=== PATIENT | female | born 1945 | race Caucasian/White ===

== ENCOUNTER 2017-08-23 03:30 | Inpatient (IN) | payer MEDICARE, BC ==
[2017-08-23] VITALS (11 sets, daily range): BP systolic 80–224; BP diastolic 52–105
[~2017-08-23] VITALS: Ht 170.2 cm; Wt 112.5 kg
[~2017-08-23 03:30] MED LIST: AMILORIDE HCL-1 EACH PO; AMIODARONE HCL100 MG PO; AMOXICILLIN 50500 MG PO; AMOXIL 875 MG875 M1 PO; ANUSOL-HC30 GM RC; APRISO0.375 GM PO; ASPIR 8181 MG PO; ASPIRIN325 PO; ATORVASTATIN CA40 MG PO; AZULFIDINE500 MG PO; BACTRIM DS TAB1 EACH PO; CANASA1000 MG RECTAL; CARDIZEM CD120 MG PO; CELEXA 10 MG TA10 M1 PO; CELEXA 20 MG TA20 M1 PO; CELEXA10 MG PO; CELEXA20 MG PO; CIPRO500 MG PO; CIPROFLOXACIN500 M1 PO; Diltiazem PO; ENTOCORT EC 3 MG3 MG PO; Enalapril PO; FISH OIL 1,0001 EAC5 PO; FLAGYL500 MG PO; FLEXERIL PO; FLOMAX0.4 MG PO; HYDROCODON-ACE1 EA10; HYDROCODON-ACE1 EAC7 PO; HYDROCODONE-AP1 EAC6 PO; IMDUR 30 MG TAB30 MG PO; IRON 100 PLUS1 EACH PO; IRON325; IRON325 PO; KEFLEX500 MG PO; LEVSIN-SL0.125 MG SL; LEVSIN0.125 MG PO; LIALDA1.2 GM PO; LIPITOR 20 MG T20 M1 PO; LISINOPRIL10 MG PO; LISINOPRIL5 MG PO; LORTAB 10-3251 EACH PO; LORTAB 5-325 M1 EACH PO; MAG-OX 400 TAB400 M1 PO; MEDROLDOSEPACK PO; METAMUCIL PAC1 UDPKT PO; MOBIC15 MG PO; NEURONTIN 300300 M1 PO; NORCO 5-325 TA1 EACH PO; OMEPRAZOLE40 MG PO; OSCIMIN0.125 MG PO; PACERONE 200 M200 M1 PO; PERCOCET PO; PHENAZOPYRIDIN200 M2 PO; POTASSIUM20 PO; PRILOSEC; PRILOSEC 20 MG20 MG PO; PRILOSEC OTC20 MG PO; PRILOSEC2.5 MG; PROAIR HFA8.5 GM INH; PROTONIX40 M1 PO; PROTONIX40 M2 PO; PYRIDIUM200 M1 PO; Q-VAR PO; QVAR8.7 G1 INH; QVAR8.7 GM INH; SIMVASTATIN40 MG PO; SULFADIAZINE500 MG PO; SULFASALAZINE25 GM; SULFASALAZINE25 GM PO; ULTRAM 50MG TAB50 MG PO; VENTOLIN HFA 1818 GM INH; VENTOLIN HFA 1818 GM PO; XARELTO15 MG PO; XARELTO20 MG PO; ZOFRAN ODT4 MG PO; [UNRECOGNIZED DRUG - REMARK]
[2017-08-23] MEDS ORDERED: CARDIZEM CD120 MG PO (03:44)
[2017-08-23] MEDS ORDERED: ATORVASTATIN CA40 MG PO (03:45)
[2017-08-23] MEDS ORDERED: CELEXA20 MG PO (03:45)
[2017-08-23] MEDS ORDERED: IRON325 (03:46)
[2017-08-23] MEDS ORDERED: GABAPENTIN 100100 MG PO (03:46)
[2017-08-23] MEDS ORDERED: ELIQUIS5 MG PO (03:46)
[2017-08-23] MEDS ORDERED: APRISO0.375 GM PO (03:47)
[2017-08-23] MEDS ORDERED: [UNRECOGNIZED DRUG - OTHER] PO (03:49)
[2017-08-23 04:02] LABS: ABSOLUTE EOSINOPHILS 0.5 thou/uL (0.0-0.7); ABSOLUTE MONOCYTES 0.6 thou/uL (0.0-1.2); ABSOLUTE NEUTROPHILS 3.1 thou/uL (1.6-8.1); BASOPHILS 0.8 %; EOSINOPHILS 9.3 %; HEMATOCRIT 41.7 % (37.0-47.0); HEMOGLOBIN 13.2 gm/dL (12.0-15.0); LYMPHOCYTES 19.7 %; MCH 29.5 pg (26.0-34.0); MCHC 31.8 g/dL (28.0-37.0); MCV 92.9 fL (80.0-100.0); MONOCYTES 11.9 %; MPV 9.4 fl. (7.2-11.1); NUCLEATED RBCS 0 /100WBC; PLATELET COUNT* 216 thou/uL (150-400); POLYS 58.3 %; RBC 4.48 mil/uL (4.20-5.00); RDW-CV 16.3 % (10.5-14.5); WBC 5.2 thou/uL (4.0-11.0)
[2017-08-23 04:22] LABS: ANION GAP 9 mmol/L (7-16); BUN 12 mg/dL (7-18); CALCIUM 9.5 mg/dL (8.5-10.1); CHLORIDE 107 mmol/L (98-107); CO2 27 mmol/L (21-32); CREATININE 0.8 mg/dL (0.6-1.3); GLUCOSE 90 mg/dL (70-99); SODIUM 143 mmol/L (136-145)
[2017-08-23 04:36] LABS: ALBUMIN 3.4 g/dL (3.4-5.0); ALKALINE PHOSPHATASE 92 U/L (46-116); NT-PRO BRAIN NAT PEPTIDE 1437 pg/mL (<300); SGOT 12 U/L (15-37); SGPT 21 U/L (30-65); TOTAL BILIRUBIN 0.5 mg/dL (<0.1-1.0); TOTAL PROTEIN 7.3 g/dL (6.4-8.2); TROPONIN-I LEVEL <0.06 ng/mL (<0.06)
[2017-08-23 06:22] LABS: INR 1.2
--- NOTE | 2017-08-23 13:40 | NUR ---
I HAVE REVIEWED THE STUDENT'S CHARTING.
--- NOTE | 2017-08-23 15:10 | NUR ---
CM ASSESSMENT: Pt is A&O. Resides at home with her . Independent with ADLs. Pt has a walker and cane at home that she can use if needed. No hx of HH or SNF. Supportive family that is involved in POC. Goal is to return home once medically stable. Following.
--- NOTE | 2017-08-23 15:25 | 2DMMODE ---
[place] [address] 2 D/M-MODE ECHOCARDIOGRAM Name: JAYLENE TOVAR [facility] IN [facility]#: [id number] Admission: 08/23/17 Attend Phys: Yaniv Armando Discharge: Date of : 43 Date of Service: 08/23/17 1525 Report #: [id number] THIS REPORT FOR: //name// APPROVED REPORT Study performed: 08/23/2017 11:03:37 EXAM: Comprehensive 2D, Doppler, and color-flow Echocardiogram Patient Location: In-Patient Room #: [facility] Status: routine BSA: 2.21 HR: 95 bpm BP: 102/56 mmHg Rhythm: Atrial Fibrillation Other Information Study Quality: Good Indications Congestive Heart Failure Atrial Fibrillation 2D Dimensions LVEF(%): 70.58 (>50%) IVSd: 12.49 (7-11mm) LVOT Diam: 20.66 (18-24mm) LVDd: 35.03 mm PWd: 11.81 (7-11mm) Ascending Ao: 32.16 (22-36mm) LVDs: 21.34 (25-40mm) Aortic Root: 32.38 mm Phillip's LVEF: 70.58 % Volumes Left Atrial Volume (Systole) LA ESV Index: 47.40 mL/m2 Aortic Valve AoV Peak Pawel.: 2.25 m/s AO Peak Gr.: 20.20 mmHg LVOT Max P.74 mmHg AO Mean Gr.: 11.95 mmHg LVOT Mean P.67 mmHg LVOT Max V: 1.20 m/s AO V2 VTI: 45.26 cm LVOT Mean V: 0.74 m/s ANNEMARIE (VTI): 1.93 cm2 LVOT V1 VTI: 26.03 [place] [address] 2 D/M-MODE ECHOCARDIOGRAM Name: JAYLEEN TOVAR Room: [address] IN .R.#: [id number] Admission: 08/23/17 Attend Phys: Yaniv Armando Discharge: Date of : 43 Date of Service: 08/23/17 1525 Report #: [id number] MV Decel. Time: 187.06 ms MV PHT: 54.25 ms MVA (PHT): 4.06 cm2 TDI Medial E' Pawel.: 0.13 m/s Lateral E' Pawel.: 0.12 m/s Pulmonary Valve PV Peak Pawel.: 1.01 m/s PV Peak Gr.: 4.12 mmHg Tricuspid Valve TR Peak Gr.: 23.78 mmHg RVSP: 28.00 mmHg Left Ventricle The left ventricle is normal size. There is normal LV segmental wall motion. Mild concentric left ventricular hypertrophy. Left ventricular systolic function is normal. The left ventricular ejection fraction is within the normal range. LVEF is 65%. This study is not technically sufficient to allow evaluation of the LV diastolic function due to atrial fibrillation. Right Ventricle The right ventricle is normal size. The right ventricular systolic function is normal. Atria Left atrium is moderately dilated. The right atrium size is normal. Aortic Valve Mild aortic valve sclerosis. No aortic regurgitation is present. No hemodynamically significant valvular aortic stenosis. Mitral Valve There is mitral annular calcification. Trace mitral regurgitation. No evidence of mitral valve stenosis. Tricuspid Valve The tricuspid valve is normal in structure. Trace tricuspid regurgitation. The RVSP is ____28___ mmHg. Pulmonic Valve The pulmonary valve is normal in structure. There is no pulmonic [place] [address] 2 D/M-MODE ECHOCARDIOGRAM Name: JAYLENE TOVAR Room: [address] IN [facility]#: [id number] Admission: 08/23/17 Attend Phys: Yaniv Armando Discharge: Date of : 43 Date of Service: 08/23/17 1525 Report #: [id number] Great Vessels The aortic root is normal in size. IVC is normal in size and collapses with >50% inspiration Pericardium There is no pericardial effusion. <Conclusion> The left ventricle is normal size. Mild concentric left ventricular hypertrophy. Left ventricular systolic function is normal. The left ventricular ejection fraction is within the normal range. LVEF is 65%. This study is not technically sufficient to allow evaluation of the LV diastolic function due to atrial fibrillation. The right ventricle is normal size. Left atrium is moderately dilated. The right atrium size is normal. Mild aortic valve sclerosis. No aortic regurgitation is present. No hemodynamically significant valvular aortic stenosis. There is mitral annular calcification. Trace mitral regurgitation. No evidence of mitral valve stenosis. The tricuspid valve is normal in structure. Trace tricuspid regurgitation. The RVSP is ____28___ mmHg. IVC is normal in size and collapses with >50% inspiration There is no pericardial effusion. There is normal LV segmental wall motion. <ELECTRONICALLY SIGNED> By: Salvador Garces MD, FACC 08/23/17 1525 1525 1525 Salvador Garces MD, FACC /INF
--- NOTE | 2017-08-23 15:45 | NUR ---
ASSUMED PT CARE AT 0700 PT IS ALERT AND ORIENTED X 4 PT IS UP WITH SBA PT IS A FALL RISK PT HAS HISTORY OF FALLS BED ALARM IS ON, PT IS AFIB ON THE MONITOR PT IS ON CARDIZEM DRIP PT HAS CARDIAC CONSULT PT IS NPO PER CARDIOLOGY, CARDIOLOGY ORDERED PO CARDIZEM AND ORDERED TO STOP DRIP GAVE PO CARDIZEM AND STOPPED DRIP CARDIOLOGY CALLED AND PT CAN EAT LIGHT HEART HEALTHY LUNCH AND THEN NPO FOR STRESS TEST AROUND 1630 CALLED AND ORDERED LUNCH FOR PT PT IS NPO FOR STRESS TEST PT HAS NOT HAD CAFFIENE OVER 12 HOURS, PT HEART RATE IS CONTROLLED WITH PO CARDIZEM WILL CONTINUE TO MONITOR
--- NOTE | 2017-08-23 16:09 | EKG ---
[place] [address] ELECTROCARDIOGRAM REPORT Name: JAYLENE TOVAR Room: [address] ADM IN M.R.#: [id number] Admission: 08/23/17 Attend Phys: Michelle Elkins Discharge: Date of : 43 Report #: [id number] THIS REPORT FOR: //name// [facility] ED Test Date: 2017-08-23 Test Time: 04:21:03 Pat Name: JAYLENE LA Department: Room: [facility] Gender: F Legal Records Manager: [place] : 1945 Requested By: Aaliyah Metzger Order Number: [id number] MD: Salvador Garces Measurements Intervals [place] Rate: 119 P: GA: QRS: 56 QRSD: 98 T: 15 QT: 346 QTc: 487 Interpretive Statements Atrial fibrillation minor nonspecific st-t changes Baseline wander in lead(s) V1 Compared to ECG 03/27/2016 12:37:37 Early repolarization no longer present Electronically Signed On 08-23-2017 16:09:49 CDT by Salvador Garces [email or web address] <ELECTRONICALLY SIGNED> By: Salvador Garces MD, [facility] 08/23/17 1609 0421 0421 Salvador Garces MD, [facility] /EPI
[2017-08-24] VITALS: BP 167/67
[2017-08-24 04:00] VITALS: BP 147/94
--- NOTE | 2017-08-24 06:26 | NUR ---
A&O X4 CALM COOPERITVE. GIVEN TYNELOL FOR AVILA, RELIEF NOTED. USES O2 PRN. NO FLUIDS.PT IS STAND BY ASSIST. AFIB ON THE MONITOR. NPO SINCE 0000 STRESS TEST TODAY. VITALS WNL. SEE MAR. SEE CHARTING. FALL PRECAUTIONS IN PLACE. HOURLY ROUNDING FOR SAFETY.
[2017-08-24 08:17] VITALS: BP 144/97
--- NOTE | 2017-08-24 08:30 | NUR ---
RECEIVED REPORT. ASSUMED CARE OF PT AT 0730. VSS. CARDIAC MONTIORING IN PLACE AFIB. AM ASSESSMENT AND VITALS COMPLETED CHARTED. PT ALERT AND OREINTED X4. PT ON RA AMBULATING BACK TO CHAIR FROM BATHROOM UPON ASSESSMENT. PT IS SOA WITH EXERTION AND AUDIBLE WHEEZING PRESENT. O2 SAT CHECKED AT 90-93% ON RA. 2L ON STAND BY. IV SALINE LOCKED. PT NPO FOR SECOND PART OF STRESS TEST. PT INFORMED OF PLAN OF CARE. PT DENIES ANY COMPLAINTS OF PAIN OR DISCOMFORT THIS AM. PT COMMUNICATES UNDERSTANDING OF PLAN OF CARE. CALL LIGHT IS WITHIN REACH. WILL CONTINUE TO MONITOR FOR DURATION OF SHFIT.
[2017-08-24 12:01] VITALS: BP 118/92
--- NOTE | 2017-08-24 16:58 | NUR ---
VSS. CARDIAC MONITORING IN PLACE WITH NO CHANGES THIS SHIFT. PT PROGRESSING TOWARDS GOALS. PT REMAINS ON RA WITH 2L ON STAND BY. PT'S WHEEZING IMPROVED. PT COMPLETED STRESS TEST. PT RECEIVED TWO DOSES OF IV DIG THIS SHIFT. PT IS UP INDEPENDENTLY IN ROOM. PT HAS HAD NO COMPLAINTS OF PAIN OR DISCOMFORT. IV SALINE LOCKED. HOURLY ROUNDING. CALL LLIGHT IS WITHIN REACH. WILL CONTINUE TO MONITOR FOR DURAITON OF SHIFT.
--- NOTE | 2017-08-24 17:38 | CARDNUC ---
[place] [address] CARDIAC NUCLEAR IMAGING REPORT Name: JAYLENE TOVAR Room: [address] IN [facility]#: [id number] Admission: 08/23/17 Attend Phys: Yaniv Armando Discharge: Date of : 43 Date of Service: 08/24/17 1737 Report #: [id number] THIS REPORT FOR: //name// APPROVED REPORT Study performed: 08/23/2017 10:32:00 Exam: Nuclear Stress Test Indication: dyspnea, a fib Patient Location: In-Patient Room #: 228 Stress Tech: Yas Guerrero Stress Nurse: Maris Cisneros RN Ht: 5 ft 7 in Wt: 247 lbs BSA: 2.21 m2 BMI: 38.68 Medical History Medical History: a fib, hypertension, hyperlipidemia Medications: apixaban, atorvastatin, diltiazem Allergies: codiene, morphine Cardiac Risk Factors: age, hyperlipidemia, hypertension Previous Cardiac Procedures: none Exercise History: Sedentary Stress Test Details Stress Test: Pharmacologic stress testing performed using 0.4 mg of regadenoson per 5 mL given IV over 10 seconds. Reason for pharmacologic stress test: physical limitation. Reversal agent Aminophyline 50 mg, given intravenously for wheezing. HR Resting HR: 112 bpm Max Heart Rate (APMHR): 148 bpm Max HR Achieved: 110 bpm Target HR (85% APMHR): 125 bpm % of APMHR: 74 Recovery HR: 115 bpm BP Resting BP: 167/70 mmHg Max BP: 186/64 mmHg ECG Resting ECG: Atrial Fibrillation Stress ECG: [place]rial [place] [address] CARDIAC NUCLEAR IMAGING REPORT Name: JAYLENE TOVAR Room: [address]#: [id number] Admission: 08/23/17 Attend Phys: Yaniv Armando Discharge: Date of : 43 Date of Service: 08/24/17 1737 Report #: [id number] Change: None Recovery ECG: Atrial Fibrillation Recovery ST Change: None Clinical Reason for Termination: Completed protocol Stress Symptoms: none Exercise duration: 0 min sec Exercise capacity: 1 METs The patient had no significant symptoms with Lexiscan infusion. Nurse Comments wheezing much improved from yesterday. pt has slight expiratory whheze. pt placed on O2 4l/nc dring test. aminaphylline goven after test for wheeze Stress ECG Conclusion The baseline 12-lead electrocardiogram showed atrial fibrillation with a controlled ventricular response rate. EKGs obtained during and post Lexiscan infusion showed persistent atrial fibrillation with no significant ST or T wave changes when compared to baseline. NM EXAM: Myocardial Perfusion REST/STRESS Imaging Protocol: Rest Tc-99m/Stress Tc-99m 2 days Resting Data Rest SPECT myocardial perfusion imaging was performed in supine position 30 minutes following the intravenous injection of 41.0 mCi of Tc-99m Sestamibi. Time of rest injection: 1650 Date: 08/23/2017 Time of rest imagin Date: 08/23/2017 The images were gated to evaluate regional wall motion and calculate left ventricular ejection fraction. Administration Route: IV Administration Site: Right Arm Pharmacologic Stress Pharmacologic stress test was performed by injecting Regadenoson 0.4 mg IV push followed by the intravenous injection of 37.9 mCi of Tc-99m Sestamibi. Time of stress injection: 1530 Date: 08/24/2017 Time of stress imagin Date: 08/24/2017 Administration Route: IV Administration Site: Right Arm Heart Rate at time of stress injection: [address] [place] [address] CARDIAC NUCLEAR IMAGING REPORT Name: JAYLENE TOVAR Room: [address]#: [id number] Admission: 08/23/17 Attend Phys: Yaniv Armando Discharge: Date of : 43 Date of Service: 08/24/17 1737 Report #: [id number] Gated Stress SPECT was performed 40 minutes after stress injection. The images were gated to evaluate regional wall motion and calculate left ventricular ejection fraction. Prone imaging was performed. Study Quality Study: Good Artifact: No artifact Study Data At rest, the left ventricular ejection fraction was 68%.. Post stress, the left ventricular ejection was 73%.. TID = 1.00. Perfusion Normal left ventricular perfusion. Wall Motion Normal left ventricular wall motion. Nuclear Conclusion ECG Findings: negative for ischemia Clinical Findings: negative for ischemia Nuclear Findings: negative for ischemia Exercise Capacity: not assessed Left Ventricular Function: normal Risk Study: low Myocardial perfusion images show no defect to suggest ischemia or infarct. Left ventricular systolic function appears normal on gated studies. This is a low risk study. <Conclusion> The baseline 12-lead electrocardiogram showed atrial fibrillation with a controlled ventricular response rate. EKGs obtained during and post Lexiscan infusion showed persistent atrial fibrillation with no significant ST or T wave changes when compared to baseline. <ELECTRONICALLY SIGNED> By: Anup Garcia MD, FACC 08/24/17 1737 1737 173 Anup Garcia MD, FACC /INF
[2017-08-24 20:10] VITALS: BP 167/78
[2017-08-25 00:08] VITALS: BP 172/83
[2017-08-25 03:56] VITALS: BP 149/65
--- NOTE | 2017-08-25 05:52 | NUR ---
A&O X4 CALM COOPERITIVE. DENIES PAIN. APROX 2330 HR FLUTUATED FROM 100-150, ATTPEMTED TO PAGE CARDIO ANSWERING SERVICE, SERVICE DOWN. CARBONATOR CALLED DR NAVARRO LEFT MESSAGE AND TEXT. ANSWERING SERVICE WAS CONTACTED AT APROX 0300 AND MESSAGE WAS SENT TO MICHELLE CARDIO. BY THE TIME A PAGE WAS ABLE TO BE SENT PT HR WAS 90-110 AND STAYED 90-120 AND WAS ASYMPTOMATIC. PT REMAINED ASYSMPTOMATIC THROUGH OUT THE NIGHT. REPORTED HEARTBURN AND HEADACHE MEDICATION WAS GIVEN WITH RELIEF. PT WAS TAKEN OFF FALL PRECAUTIONS, PT WAS STAND BY, PT HAS REMAINED BALANCE ON FEET DURING OBSERVATION FOR STAND BY ASSIST. BP O2 PULSE WNL. SEE MAR. SEE CHARTING. HOURLY ROUNDING FOR SAFETY.
[2017-08-25 08:00] VITALS: BP 127/83
--- NOTE | 2017-08-25 10:54 | NUR ---
CONTINUE TO FOLLOW, PT DENIES ANY DC NEEDS. SPOUSE AT BEDSIDE. PT HOPES TO GO HOME
--- NOTE | 2017-08-25 12:50 | NUR ---
ASSUMED PT CARE AT 0700 PT IS ALERT AND ORIENTED X 4 PT IS UP SBA PT IS A FALL RISK CHAIR ALARM IS ON, PT DENIES PAIN OR SOA PT IS ON 2L/NC, PT IS AFIB ON THE MONITOR BLOOD PRESSURE AND HEART RATE IS STABLE, PT IS PLEASANT AND COOPERATIVE, PT MAY DISCHARGE TODAY AWAITING PHYSICIAN WILL CONTINUE TO MONITOR
[2017-08-25 12:52] VITALS: BP 131/76
[2017-08-25 16:00] VITALS: BP 140/68
[2017-08-25 20:00] VITALS: BP 133/78
[2017-08-26] VITALS: BP 143/63
[2017-08-26 04:00] VITALS: BP 138/69
--- NOTE | 2017-08-26 05:22 | NUR ---
PT CARE ASSUMED AFTER REPORT. ASSESSMENT COMPLETE. AFIB ON MONITOR. PRN TYLENOL FOR HEADACHE. UP AD MECHE WITH STEADY GAIT. CALL LIGHT IN REACH. BED IN LOWEST POSITION. PROGRESSING TOWARDS GOALS.
[2017-08-26 05:27] LABS: HEMATOCRIT 39.2 % (37.0-47.0); HEMOGLOBIN 12.5 gm/dL (12.0-15.0); MCH 29.4 pg (26.0-34.0); MCHC 31.9 g/dL (28.0-37.0); MCV 92.1 fL (80.0-100.0); MPV 10.1 fl. (7.2-11.1); RBC 4.26 mil/uL (4.20-5.00); RDW-CV 16.1 % (10.5-14.5); WBC 11.9 thou/uL (4.0-11.0)
[2017-08-26 05:43] LABS: ALBUMIN 3.2 g/dL (3.4-5.0); CALCIUM 9.7 mg/dL (8.5-10.1); CREATININE 0.7 mg/dL (0.6-1.3); MAGNESIUM 2.1 mg/dL (1.8-2.4); POTASSIUM 4.1 mmol/L (3.5-5.1); TOTAL BILIRUBIN 0.2 mg/dL (<0.1-1.0); TOTAL PROTEIN 6.6 g/dL (6.4-8.2)
[2017-08-26 08:00] VITALS: BP 154/79
[2017-08-26] MEDS ORDERED: PREDNISONE 10 M10 MG PO (09:11)
[2017-08-26] MEDS ORDERED: DUONEB 2.5-0.5 M3 ML INH (09:11)
[2017-08-26] MEDS ORDERED: LANOXIN 0.25M0.25 M1 PO (09:11)
[2017-08-26] MEDS ORDERED: LEVAQUIN 500 M500 M1 PO (09:11)
[2017-08-26] MEDS ORDERED: CARDIZEM CD240 MG PO (09:11)
--- NOTE | 2017-08-26 09:46 | NUR ---
ASSUMED PT CARE AT 0700 PT IS ALERT AND ORIENTED X 4 PT DENIES PAIN OR SOA PT IS ON 2L/NC WHICH PT HAS BEEN ABLE TO REMOVE AND SATS ARE STABLE PHYSICIAN SAW PT AND ORDERED RESPIRATORY TO WALK PT AND THEN PT CAN DISCHARGE TO HOME, PT IS AFIB ON THE MONITOR PT IS A FALL RISK PT IS STABLE WHEN AMBULATING CHAIR ALARM IS ON PT CALLS OUT APPROPIATELY, WILL CONTINUE TO MONITOR
[2017-08-26 11:42] VITALS: BP 154/79
== END 2017-08-26 12:17 | disposition home or self-care (01) | DRG 291 ==
LOC: M.ERS 03:30 → M.TBA-ER 05:52 → M.2W 05:52
PROVIDERS: Emergency Medicine; Family Medicine; ADMIT Internal Medicine
PROC: B24BZZ4 Ultrasonography of Heart with Aorta, Transesophageal (ICD-10-PCS; principal; 2017-08-23)
PROC: 0HQ0XZZ Repair Scalp Skin, External Approach (ICD-10-PCS; principal; 2017-08-23)
DX: I50.33 Acute on chronic diastolic (congestive) heart failure (principal); J96.91 Respiratory failure, unspecified with hypoxia; S01.01XA Laceration without foreign body of scalp, initial encounter; I10 Essential (primary) hypertension; I48.0 Paroxysmal atrial fibrillation; E78.5 Hyperlipidemia, unspecified; Z96.642 Presence of left artificial hip joint; K52.9 Noninfective gastroenteritis and colitis, unspecified; G47.33 Obstructive sleep apnea (adult) (pediatric); J44.9 Chronic obstructive pulmonary disease, unspecified; M19.90 Unspecified osteoarthritis, unspecified site; W06.XXXA Fall from bed, initial encounter; Y93.89 Activity, other specified; Y92.89 Other specified places as the place of occurrence of the external cause; Y99.8 Other external cause status; I25.2 Old myocardial infarction; Z90.49 Acquired absence of other specified parts of digestive tract; Z87.442 Personal history of urinary calculi; Z86.718 Personal history of other venous thrombosis and embolism; Z79.01 Long term (current) use of anticoagulants; Z79.82 Long term (current) use of aspirin; Z79.899 Other long term (current) drug therapy; Z88.5 Allergy status to narcotic agent; Z88.8 Allergy status to other drugs, medicaments and biological substances; Z82.49 Family history of ischemic heart disease and other diseases of the circulatory system

== ENCOUNTER → 2018-08-22 | Day surgery (SDC) | payer MEDICARE, BC ==
[~2018-08-22] MED LIST changes: +BENTYL 10 MG CA10 M1 PO; +CARDIZEM CD240 MG PO; +DUONEB 2.5-0.5 M3 ML INH; +ELIQUIS5 MG PO; +GABAPENTIN 100100 MG PO; +LANOXIN 0.25M0.25 M1 PO; +LEVAQUIN 500 M500 M1 PO; +POTASSIUM CITRA5 MEQ PO; +PREDNISONE 10 M10 MG PO; +[UNRECOGNIZED DRUG - OTHER] PO
--- NOTE | ~2018-08-22 | PROC ---
[address] [address] PROCEDURE REPORT Name: JAYLENE TOVAR Room: [facility].#: [id number] Admission: 08/22/18 Attend Phys: Tatyana Dean MD Discharge: Date of : 43 Report #: [id number] THIS REPORT FOR: //name// For GI report, please see the Provation report in Perceptive 7 content. By: 0639Medical Records Staff DAVID /BRAD
[2018-08-22 09:48] LABS: HEMATOCRIT 36.1 % (37.0-47.0); HEMOGLOBIN 11.4 gm/dL (12.0-15.0); MCH 26.1 pg (26.0-34.0); MCHC 31.7 g/dL (28.0-37.0); MCV 82.2 fL (80.0-100.0); MPV 8.5 fl. (7.2-11.1); RBC 4.39 mil/uL (4.20-5.00); WBC 10.8 thou/uL (4.0-11.0)
[2018-08-22 10:13] LABS: ALBUMIN 2.7 g/dL (3.4-5.0); CALCIUM 8.9 mg/dL (8.5-10.1); CREATININE 0.9 mg/dL (0.6-1.3); TOTAL BILIRUBIN 0.5 mg/dL (<0.1-1.0)
[2018-08-22 10:22] LABS: POTASSIUM 2.8 mmol/L (3.5-5.1)
--- NOTE | 2018-08-22 14:41 | EKG ---
[place] [address] ELECTROCARDIOGRAM REPORT Name: JAYLENE TOVAR Room: [facility]#: [id number] Admission: 08/22/18 Attend Phys: Tatyana Dean MD Discharge: Date of : 43 Report #: [id number] THIS REPORT FOR: //name// [facility] Test Date: 2018-08-22 Test Time: 09:31:58 Pat Name: JAYLENE TOVAR Department: Room: Gender: F Cross Roller: : 1945 Requested By: Tatyana Dean Order Number: [id number] Hilary MD: Salvador Garces Measurements Intervals [place] Rate: 125 P: MD: QRS: 33 QRSD: 87 T: -17 QT: 333 QTc: 481 Interpretive Statements Atrial fibrillation Low voltage, extremity leads Minimal ST depression, inferior leads Compared to ECG 08/23/2017 04:21:03 Low QRS voltage now present ST (T wave) deviation still present Electronically Signed On 08-22-2018 14:41:08 CDT by Salvador Garces [email or web address] <ELECTRONICALLY SIGNED> By: Salvador Garces MD, [facility] 08/22/18 1441 0931 0931 Salvador Garces MD, [facility] /EPI
--- NOTE | 2018-08-23 17:06 | PATH ---
[facility] [address] [place] [address] PATHOLOGY RPT PROCEDURE Name: GARRICKHERBERTCRISTINJAYLENE J [id number] Admission: 08/22/18 Date of : 43 Discharge: Report #: [id number] Path Case #: [id number] [facility] Accession Number: [id number] . 01 Material submitted: . PART A: colon - RANDOM COLON BX R/O COLITIS PART B: rectum - RECTAL BX R/O PROCTITIS . 01 Clinical history: . Rule out colitis, rule out proctitis, Hx colon polyps, ulcerative colitis, diarrhea, hematochezia . 02 Diagnosis: A. Random colon biopsies: - Compatible with ulcerative colitis with moderate activity, negative for granulomas, viral inclusions and dysplasia. See comment. . B. Rectal biopsy: - Compatible with ulcerative colitis with severe activity, negative for granulomas, viral inclusions and dysplasia. See comment. LBQ/08/23/2018 . 02 Comment: All of the random colon biopsy fragments as well as rectal biopsy fragments show similar findings with prominent chronic colitis evidenced by crypt distortion, basal lymphoplasmacytosis and mucin depletion and there is also easily identified crypt abscesses and cryptitis and, in the rectal biopsy (B), with evidence of skip ulceration also present. (JAMIN/db; 08/23/2018) . 02 Electronically signed: . Vick Ruvalcaba MD, Pathologist NPI- [id number] . 01 Gross description: . A. Received in formalin labeled "Jaylene Lindquist, random colon BX," are 6 segments of fleming soft tissue measuring 1.3 x 0.9 x 0.2 cm in aggregate dimensions and ranging from 0.3 to 0.6 cm in maximum dimension. The specimen is submitted entirely in cassette A1. . B. Received in formalin labeled "Jaylene Lindquist, rectal BX," are 2 segments of fleming soft tissue measuring 0.9 x 0.1 x 0.1 cm in aggregate dimensions and ranging from 0.4 to 0.5 cm in maximum dimension. The specimen is submitted entirely in cassette B1. (TSD; 08/22/2018) TOB/TOB . 02 Pathologist provided ICD-10: [place] [address] PATHOLOGY RPT PROCEDURE Name: SHIRLEY LINDQUISTFER Abdi Room: [facility]#: [id number] Admission: 08/22/18 Date of : 43 Discharge: Report #: [id number] Path Case #: [id number] K51.90 . 02 CPT . [id number], [id number] Specimen Comment: A courtesy copy of this report has been sent to Specimen Comment: [phone], . Specimen Comment: Report sent to / DR MCARTHUR Performed at: [address] [facility] [address], [place], [place] [id number] MD Roland Bazan MD Phone: [phone] Performed at: 02 [facility] [address]ina [address], [place], [place] [id number] MD Vick Ruvalcaba MD Phone: [phone]
== END | disposition home or self-care (01) ==
LOC: M.SUR 06:27
PROVIDERS: Internal Medicine Gastroenterology
DX: K51.90 Ulcerative colitis, unspecified, without complications (principal); K57.30 Diverticulosis of large intestine without perforation or abscess without bleeding; K64.8 Other hemorrhoids; K64.4 Residual hemorrhoidal skin tags; K62.89 Other specified diseases of anus and rectum; K21.9 Gastro-esophageal reflux disease without esophagitis; I25.10 Atherosclerotic heart disease of native coronary artery without angina pectoris; I25.2 Old myocardial infarction; E78.5 Hyperlipidemia, unspecified; J44.9 Chronic obstructive pulmonary disease, unspecified; I48.91 Unspecified atrial fibrillation; E66.09 Other obesity due to excess calories; Z79.01 Long term (current) use of anticoagulants; Z88.8 Allergy status to other drugs, medicaments and biological substances; Z79.899 Other long term (current) drug therapy; Z86.010 Personal history of colon polyps; Z98.890 Other specified postprocedural states; Z87.442 Personal history of urinary calculi

== ENCOUNTER 2018-11-15 06:52 | Inpatient (IN) | payer MEDICARE, BC ==
[~2018-11-15] VITALS: Ht 152.4 cm; Wt 106.6 kg
[2018-11-15 06:55] VITALS: BP 161/119
[2018-11-15 07:22] LABS: BE -0.4 mmol/L (-2 to +3); PCO2 36.5 mmHg (35.0-45.0); pH 7.428 (7.340-7.450)
[2018-11-15 07:24] LABS: PO2 48.6 mmHg (75.0-100.0)
[2018-11-15 07:33] LABS: ABSOLUTE LYMPHOCYTES 0.8 thou/uL (0.8-5.3); ABSOLUTE MONOCYTES 0.4 thou/uL (0.0-1.2); ABSOLUTE NEUTROPHILS 5.7 thou/uL (1.6-8.1); BASOPHILS 0.4 %; EOSINOPHILS 0.3 %; HEMATOCRIT 39.4 % (37.0-47.0); HEMOGLOBIN 12.2 gm/dL (12.0-15.0); MCH 26.3 pg (26.0-34.0); MCHC 31.1 g/dL (28.0-37.0); MCV 84.6 fL (80.0-100.0); MONOCYTES 5.5 %; MPV 8.5 fl. (7.2-11.1); NUCLEATED RBCS 0 /100WBC; PLATELET COUNT* 242 thou/uL (150-400); POLYS 82.8 %; RBC 4.66 mil/uL (4.20-5.00); RDW-CV 21.4 % (10.5-14.5); WBC 6.9 thou/uL (4.0-11.0)
[2018-11-15] MEDS ORDERED: IRON325 PO (07:35)
[2018-11-15] MEDS ORDERED: SINGULAIR 10 MG10 M1 PO (07:35)
[2018-11-15] MEDS ORDERED: VENTOLIN HFA 1818 GM INH (07:35)
[2018-11-15] MEDS ORDERED: PREDNISONE 20 M20 MG PO (07:35)
[2018-11-15 07:42] LABS: ANION GAP 9 mmol/L (7-16); BUN 14 mg/dL (7-18); CALCIUM 9.1 mg/dL (8.5-10.1); CHLORIDE 111 mmol/L (98-107); CO2 28 mmol/L (21-32); CREATININE 0.8 mg/dL (0.6-1.3); GLUCOSE 124 mg/dL (70-99); POTASSIUM 3.4 mmol/L (3.5-5.1); SODIUM 148 mmol/L (136-145)
[2018-11-15 07:45] LABS: APTT 26.1 Seconds (25.0-31.3); INR 1.1; PROTIME 11.1 Seconds (9.20-11.50)
[2018-11-15 07:53] LABS: ALKALINE PHOSPHATASE 54 U/L (46-116); NT-PRO BRAIN NAT PEPTIDE 2758 pg/mL (<300); SGOT 10 U/L (15-37); SGPT 27 U/L (30-65); TOTAL BILIRUBIN 0.4 mg/dL (<0.1-1.0); TOTAL PROTEIN 6.5 g/dL (6.4-8.2); TROPONIN-I LEVEL <0.06 ng/mL (<0.06)
[2018-11-15 08:00] VITALS: BP 121/87
[2018-11-15 08:44] VITALS: BP 149/92
[2018-11-15 08:51] LABS: PLATELET ESTIMATE ADEQUATE
[2018-11-15 08:52] LABS: ANISOCYTOSIS 1+
[2018-11-15 08:53] LABS: POIKILOCYTOSIS 1+
[2018-11-15 08:54] LABS: OVALOCYTES 1+
--- NOTE | 2018-11-15 16:18 | 2DMMODE ---
[place] [address] 2 D/M-MODE ECHOCARDIOGRAM Name: JAYLENE TOVAR Room: [address] IN [facility]#: [id number] Admission: 11/15/18 Attend Phys: Jarrell Hobson, Discharge: Date of : 43 Date of Service: 11/15/18 1618 Report #: [id number] THIS REPORT FOR: //name// APPROVED REPORT Study performed: 11/15/2018 10:47:51 EXAM: Comprehensive 2D, Doppler, and color-flow Echocardiogram Patient Location: In-Patient Room #: 2193 Status: routine BSA: 2.12 HR: 87 bpm BP: 149/92 mmHg Rhythm: Atrial Fibrillation Other Information Study Quality: Good Indications Atrial Fibrillation Dyspnea 2D Dimensions IVSd: 16.06 (7-11mm) LVOT Diam: 22.78 (18-24mm) LVDd: 40.86 mm PWd: 12.02 (7-11mm) Ascending Ao: 32.36 (22-36mm) LVDs: 24.45 (25-40mm) Aortic Root: 27.89 mm Volumes Left Atrial Volume (Systole) LA ESV Index: 39.00 mL/m2 Aortic Valve AoV Peak Pawel.: 2.26 m/s AO Peak Gr.: 20.45 mmHg LVOT Max P.10 mmHg AO Mean Gr.: 11.04 mmHg LVOT Mean P.70 mmHg LVOT Max V: 0.88 m/s AO V2 VTI: 42.78 cm LVOT Mean V: 0.60 m/s ANNEMARIE (VTI): 1.53 cm2 LVOT V1 VTI: 16.06 cm Mitral Valve MV Decel. Time: 133.59 ms MV PHT: 38.74 [place] [address] 2 D/M-MODE ECHOCARDIOGRAM Name: JAYLENE TOVAR Room: [address] IN .R.#: [id number] Admission: 11/15/18 Attend Phys: Jarrell Hobson, Discharge: Date of : 43 Date of Service: 11/15/18 1618 Report #: [id number] MVA (PHT): 5.68 cm2 TDI Medial E' Pawel.: 0.10 m/s Lateral E' Pawel.: 0.15 m/s Pulmonary Valve PV Peak Pawel.: 1.05 m/s PV Peak Gr.: 4.37 mmHg Tricuspid Valve RAP Estimate: 5.00 mmHg TR Peak Gr.: 26.48 mmHg RVSP: 31.00 mmHg PA Pressure: 31.00 mmHg Left Ventricle The left ventricle is normal size. There is normal LV segmental wall motion. Mild to moderate concentric left ventricular hypertrophy. Left ventricular systolic function is normal. LVEF is 60-65%. This study is not technically sufficient to allow evaluation of the LV diastolic function due to atrial fibrillation. Right Ventricle Right ventricle is mildly dilated. The right ventricular systolic function is normal. Atria Left atrium is moderately dilated. Right atrium is mildly dilated. Aortic Valve Aortic valve leaflets are mildly thickened. No aortic regurgitation is present. Mild aortic stenosis. Mitral Valve There is mitral annular calcification. Trace mitral regurgitation. No evidence of mitral valve stenosis. Tricuspid Valve The tricuspid valve is normal in structure. Trace tricuspid regurgitation. Pulmonic Valve The pulmonary valve is normal in structure. Trace pulmonic regurgitation[place] [address] 2 D/M-MODE ECHOCARDIOGRAM Name: JAYLENE TOVAR Room: [address] IN [facility].#: [id number] Admission: 11/15/18 Attend Phys: Jarrell Hobson, Discharge: Date of : 43 Date of Service: 11/15/18 1618 Report #: [id number] The aortic root is normal in size. IVC is normal in size and collapses >50% with inspiration. Pericardium There is no pericardial effusion. <Conclusion> The left ventricle is normal size. Mild to moderate concentric left ventricular hypertrophy. Left ventricular systolic function is normal. LVEF is 60-65%. Right ventricle is mildly dilated. Left atrium is moderately dilated. Right atrium is mildly dilated. Aortic valve leaflets are mildly thickened. Mild aortic stenosis. Trace mitral regurgitation. IVC is normal in size and collapses >50% with inspiration. <ELECTRONICALLY SIGNED> By: Anup Garcia MD, FACC 11/15/18 1618 1618 1618 Anup Garcia MD, FACC /INF
[2018-11-15 16:26] VITALS: BP 112/54
--- NOTE | 2018-11-15 17:02 | EKG ---
[place] [address] ELECTROCARDIOGRAM REPORT Name: JAYLENE TOVAR Room: [address] ADM IN M.R.#: [id number] Admission: 11/15/18 Attend Phys: Jarrell Hobson MD Discharge: Date of : 43 Report #: [id number] THIS REPORT FOR: //name// [facility] ED Test Date: 2018-11-15 Test Time: 06:56:58 Pat Name: JAYLENE LA Department: Room: [facility] Gender: F Restorative Coordinator: [place] : 1945 Requested By: Radha Jones Order Number: [id number] MD: Anup Garcia Measurements Intervals [place] Rate: 152 P: [place]: QRS: 172 QRSD: 118 T: 111 QT: 332 QTc: 528 Interpretive Statements Atrial fibrillation with rapid V-rate Anterior infarct, old Nonspecific T abnormalities, lateral leads Compared to ECG 08/22/2018 09:31:58 Myocardial infarct finding now present T-wave abnormality now present ST (T wave) deviation no longer present Electronically Signed On 11-15-2018 17:02:31 CDT by Anup Garcia [email or web address] <ELECTRONICALLY SIGNED> By: Anup Garcia MD, FACC 11/15/18 1702 0656 0656 Anup Garcia MD, FACC /EPI
[2018-11-15 20:00] VITALS: BP 144/73
[2018-11-16] VITALS: BP 141/67
[2018-11-16 04:00] VITALS: BP 139/95
[2018-11-16 04:43] LABS: CALCIUM 9.7 mg/dL (8.5-10.1); CREATININE 0.9 mg/dL (0.6-1.3); MAGNESIUM 1.8 mg/dL (1.8-2.4); POTASSIUM 3.2 mmol/L (3.5-5.1)
[2018-11-16 08:00] VITALS: BP 153/75
[2018-11-16 11:43] VITALS: BP 109/65
[2018-11-16 15:25] VITALS: BP 117/69
[2018-11-16 20:00] VITALS: BP 136/80
[2018-11-17] VITALS: BP 150/110
[2018-11-17 04:00] VITALS: BP 154/80
[2018-11-17 04:54] LABS: CALCIUM 9.4 mg/dL (8.5-10.1); CREATININE 0.9 mg/dL (0.6-1.3); MAGNESIUM 1.8 mg/dL (1.8-2.4); POTASSIUM 3.5 mmol/L (3.5-5.1)
[2018-11-17 08:00] VITALS: BP 155/86
[2018-11-17 11:30] VITALS: BP 140/77
--- NOTE | 2018-11-17 13:06 | CON ---
[address] [address] CONSULTATION Name: GARRICKHERBERTJAYLENE Abdi Room: [address] IN .R.#: [id number] Admission: 11/15/18 Attend Phys: Jarrell Hobson MD Discharge: Date of : 43 Report #: [id number] THIS REPORT FOR: //name// CC: Sergio Zepeda MD DATE OF SERVICE: 11/15/2018 INDICATION: Persistent atrial fibrillation, now with rapid ventricular response rate. HISTORY OF PRESENT ILLNESS: The patient is a 72-year-old white female who was admitted to the Emergency Room with chest tightness and discomfort. She was noted to be in atrial fibrillation with a rapid ventricular response rate. It sounds as if she has had rather persistent atrial fibrillation lately. There were plans for cardioversion in the near future. She has obstructive sleep apnea and hypertension as well. There is some question of COPD. She does use inhalers. She reports a history of heart attack 11 years ago. At that time, catheterization showed no significant coronary artery stenosis. On admission, she was noted to be hypoxic and placed on supplemental oxygen. At the time of my interview, she is feeling better. Her heart rate has improved. She remains in atrial fibrillation. She has been chronically anticoagulated with Eliquis and having no bleeding problems. PAST MEDICAL HISTORY: 1. Persistent atrial fibrillation. 2. Cardiac catheterization on 10/07/2003 with no intervention. 3. Hypertension. 4. Hyperlipidemia. 5. Chronic left hip pain and bursitis. 6. Necrotizing fasciitis of the left thigh. 7. Right wrist fracture. 8. DJD. 9. Cholecystectomy. 10. Nephrolithiasis. 11. Right shoulder replacement. 12. Neck surgery in 2015. 13. History of diverticulitis and colitis. 14. History of DVT, remotely. HOME MEDICATIONS: Albuterol two puffs q.6 hours p.r.n., Eliquis 5 mg b.i.d., atorvastatin 40 mg daily, Celexa 40 mg daily, Bentyl 10 mg q.i.d., diltiazem 240 mg daily, iron sulfate 325 mg daily, gabapentin 100 mg b.i.d., DuoNeb inhaler q.4 hours p.r.n., mesalamine 0.375 grams p.o. b.i.d., Singulair 10 [place] [address] CONSULTATION Name: JAYLENE TOVAR Room: [address]#: [id number] Admission: 11/15/18 Attend Phys: Jarrell Hobson MD Discharge: Date of : 43 Report #: [id number] bedtime, omeprazole 40 mg daily, prednisone 20 mg daily, flecainide 50 mg b.i.d. ALLERGIES: VERSED AND CODEINE. FAMILY HISTORY: Noncontributory. SOCIAL HISTORY: The patient quit smoking remotely. She drinks alcohol rarely. REVIEW OF SYSTEMS: A 14-point review of systems is positive for chest tightness, dyspnea, orthopnea, history of anemia, history of DVT, SEASONAL AND MEDICAL ALLERGIES, depression, arthritis and she wears reading glasses. Otherwise, 14-point review of systems unremarkable. PHYSICAL EXAMINATION: VITAL SIGNS: Blood pressure 149/92, pulse is 94 and irregular. GENERAL: This is a morbidly obese, pleasant white female in no distress. Mood and affect appropriate. HEENT: Extraocular muscles intact. Mucous membranes are moist. NECK: Thick. No obvious JVD. CHEST: Reveals diminished breath sounds throughout without wheezes or rales. CARDIOVASCULAR: Reveals an irregularly irregular rhythm. Rate is adequately controlled. I do not appreciate gallop or murmur. ABDOMEN: Reveals a protuberant abdomen. Bowel sounds present. EXTREMITIES: Shows no significant edema. SKIN: Warm and dry. LABORATORY DATA: A 12-lead EKG shows atrial fibrillation with a rapid ventricular response rate. There is a nonspecific intraventricular conduction delay. I do not appreciate acute ST segment abnormalities. Labs are reviewed. Sodium 148, potassium 3.4, chloride 111, bicarbonate 28, BUN 14, creatinine 0.8, serum glucose 124. AST 10, amylase 40, lipase 78, total bilirubin 0.4, direct bilirubin 0.3. Calcium 9.1, phosphorus 3.0, magnesium 2.1. Uric acid 5.4. Alkaline phosphatase 54. ALT 27, total protein 6.5, albumin 3.0. EGFR 70. Lactic acid 1.4. Troponins less than 0.06 on two separate occasions. NT-proBNP 2758. Coags within normal limits. White blood cell count 6.9; hemoglobin 12.2; platelet count 242,000. Chest x-ray showed cardiomegaly and vascular congestion. IMPRESSION AND RECOMMENDATIONS: 1. Persistent atrial fibrillation. We will continue Eliquis 5 mg twice daily. We will continue flecainide. Consider cardioversion pending echocardiogram results. Echocardiogram ordered. Continue diltiazem drip for rate control at this time. 2. Heart failure, likely acute on chronic diastolic heart failure. The patient [address] [place] [address] CONSULTATION Name: JAYLENE TOVAR Room: [address] IN [facility]#: [id number] Admission: 11/15/18 Attend Phys: Jarrell Hobson MD Discharge: Date of : 43 Report #: [id number] has received a single bolus of IV Lasix with resolution of symptoms. We will follow clinically at this point in time. 3. Hypercoagulable state. The patient is chronically anticoagulated. 4. Chest discomfort, likely related to the atrial fibrillation with rapid ventricular response rate. The patient has ruled out thus far by serial enzymes. 5. Hypertension. We will make adjustments to medications as necessary. Presently, she appears relatively stable. 6. Dyslipidemia. Continue atorvastatin at current dose. <ELECTRONICALLY SIGNED> By: Anup Garcia MD, FACC 11/17/18 1306 1416 0032Anup Garcia MD, FACC /nt
[2018-11-17 16:00] VITALS: BP 124/81
[2018-11-17 20:00] VITALS: BP 154/69
[2018-11-18] VITALS: BP 138/81
[2018-11-18 04:00] VITALS: BP 124/68
[2018-11-18 08:00] VITALS: BP 133/81
[2018-11-18 11:38] VITALS: BP 145/72
[2018-11-18 15:47] VITALS: BP 118/62
[2018-11-19] VITALS (8 sets, daily range): BP systolic 108–155; BP diastolic 61–91
[2018-11-19] MEDS ORDERED: POTASSIUM20 PO (08:52)
[2018-11-19] MEDS ORDERED: FLECAINIDE ACET50 M1 PO ×2 (08:52→17:19)
[2018-11-19] MEDS ORDERED: CARDIZEM CD240 MG PO (08:52)
[2018-11-19] MEDS ORDERED: LASIX 40 MG TAB40 M1 PO (08:52)
[2018-11-19 09:12] LABS: CALCIUM 10.4 mg/dL (8.5-10.1); CREATININE 0.9 mg/dL (0.6-1.3); POTASSIUM 3.3 mmol/L (3.5-5.1)
[2018-11-19 09:19] LABS: APTT 25.6 Seconds (25.0-31.3); INR 1.1; PROTIME 11.3 Seconds (9.20-11.50)
== END 2018-11-19 20:30 | disposition home or self-care (01) | DRG 291 ==
LOC: M.ERS 06:52 → M.2W 08:06 → M.TBA-ER 08:06 → M.2W 08:52
PROVIDERS: Internal Medicine Cardiovascular Disease; Personal Emergency Response Attendant; ADMIT Internal Medicine
DX: I11.0 Hypertensive heart disease with heart failure (principal); J96.01 Acute respiratory failure with hypoxia; I48.1 Persistent atrial fibrillation; Z68.42 Body mass index [BMI] 45.0-49.9, adult; D68.59 Other primary thrombophilia; K51.90 Ulcerative colitis, unspecified, without complications; I50.33 Acute on chronic diastolic (congestive) heart failure; E78.5 Hyperlipidemia, unspecified; M19.90 Unspecified osteoarthritis, unspecified site; G47.33 Obstructive sleep apnea (adult) (pediatric); Z96.611 Presence of right artificial shoulder joint; F32.9 Major depressive disorder, single episode, unspecified; E87.6 Hypokalemia; R73.03 Prediabetes; I35.0 Nonrheumatic aortic (valve) stenosis; I25.10 Atherosclerotic heart disease of native coronary artery without angina pectoris; E66.01 Morbid (severe) obesity due to excess calories; I25.2 Old myocardial infarction; Z90.49 Acquired absence of other specified parts of digestive tract; Z87.442 Personal history of urinary calculi; Z87.891 Personal history of nicotine dependence; Z87.81 Personal history of (healed) traumatic fracture; Z86.718 Personal history of other venous thrombosis and embolism; Z79.01 Long term (current) use of anticoagulants; Z79.899 Other long term (current) drug therapy; Z88.5 Allergy status to narcotic agent; Z88.8 Allergy status to other drugs, medicaments and biological substances; Z82.49 Family history of ischemic heart disease and other diseases of the circulatory system

== ENCOUNTER → 2018-11-23 | Outpatient (CLI) | payer MEDICARE, BC ==
[~2018-11-23] MED LIST changes: +FLECAINIDE ACET50 M1 PO; +LASIX 40 MG TAB40 M1 PO; +PREDNISONE 20 M20 MG PO; +SINGULAIR 10 MG10 M1 PO
--- NOTE | ~2018-11-23 | CARD ---
[address] [address] CARDIAC CATH REPORT Name: LAJAYLENE Abdi Room: [facility] NinaPanfilo#: [id number] Admission: 11/23/18 Attend Phys: Anup Garcia MD Discharge: Date of : 43 Report #: [id number] THIS REPORT FOR: //name// CC: Anup Zepeda DATE OF SERVICE: 11/23/2018 INDICATION: Persistent atrial fibrillation. PROCEDURE: DC cardioversion. PROCEDURE DESCRIPTION: After informed consent was obtained, the patient was brought to the cardiac holding area. The patient was given intravenous Versed and fentanyl for conscious sedation. Once the patient was adequately sedated, she received a single biphasic shock of 300 joules converting from atrial fibrillation to normal sinus rhythm. The patient tolerated the procedure well without complication. IMPRESSION: 1. Persistent atrial fibrillation. 2. Successful direct-current cardioversion to normal sinus rhythm. By: 1823 [id number] Rubi Garcia MD, FACC /nt
[2018-11-23 10:21] LABS: HEMATOCRIT 40.6 % (37.0-47.0); HEMOGLOBIN 12.7 gm/dL (12.0-15.0); MCH 26.5 pg (26.0-34.0); MCHC 31.4 g/dL (28.0-37.0); MCV 84.6 fL (80.0-100.0); MPV 9.1 fl. (7.2-11.1); RBC 4.8 mil/uL (4.20-5.00); WBC 7.6 thou/uL (4.0-11.0)
[2018-11-23 10:27] VITALS: BP 123/69
[2018-11-23 10:31] LABS: APTT 28.5 Seconds (25.0-31.3); INR 1.1; PROTIME 11.6 Seconds (9.20-11.50)
[2018-11-23 10:34] LABS: ALBUMIN 3.4 g/dL (3.4-5.0); CALCIUM 9.5 mg/dL (8.5-10.1); CREATININE 0.9 mg/dL (0.6-1.3); POTASSIUM 3.3 mmol/L (3.5-5.1); TOTAL BILIRUBIN 0.3 mg/dL (<0.1-1.0)
[2018-11-23 10:40] VITALS: BP 120/85
[2018-11-23 10:42] VITALS: BP 113/80
[2018-11-23 10:47] VITALS: BP 122/84
[2018-11-23 11:06] VITALS: BP 117/81
--- NOTE | 2018-11-23 16:47 | EKG ---
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1945 Requested By: Anup Garcia Order Number: [id number] Hilary MD: Salvador Garces Measurements Intervals [place] Rate: 75 P: 75 ME: 273 QRS: 259 QRSD: 115 T: 62 QT: 435 QTc: 486 Interpretive Statements Sinus rhythm Prolonged ME interval LAD, consider left anterior fascicular block Minimal ST elevation, lateral leads Compared to ECG 11/15/2018 06:56:58 First degree AV block now present ST (T wave) deviation now present Atrial fibrillation no longer present Myocardial infarct finding no longer present T-wave abnormality no longer present Electronically Signed On 11-23-2018 16:46:46 CDT by Salvador Garces [email or web address] <ELECTRONICALLY SIGNED> By: Salvador Garces MD, [facility] 11/23/18 1646 1102 110 Salvador Garces MD, [facility] /EPI
== END | disposition home or self-care (01) ==
LOC: M.CL 09:29
PROVIDERS: Internal Medicine Cardiovascular Disease
DX: I48.1 Persistent atrial fibrillation (principal); I11.0 Hypertensive heart disease with heart failure; I50.33 Acute on chronic diastolic (congestive) heart failure; J44.9 Chronic obstructive pulmonary disease, unspecified; I25.10 Atherosclerotic heart disease of native coronary artery without angina pectoris; G47.33 Obstructive sleep apnea (adult) (pediatric); E66.01 Morbid (severe) obesity due to excess calories; Z87.442 Personal history of urinary calculi; Z87.19 Personal history of other diseases of the digestive system; Z79.01 Long term (current) use of anticoagulants; Z88.6 Allergy status to analgesic agent; Z88.8 Allergy status to other drugs, medicaments and biological substances; Z79.899 Other long term (current) drug therapy; Z98.890 Other specified postprocedural states; Z87.891 Personal history of nicotine dependence

== ENCOUNTER → 2018-12-11 | Outpatient (CLI) | payer MEDICARE, BC ==
[2018-12-11 15:38] LABS: CALCIUM 10.2 mg/dL (8.5-10.1); CREATININE 0.9 mg/dL (0.6-1.3); POTASSIUM 3.7 mmol/L (3.5-5.1)
== END ==
LOC: M.LAB 15:02
PROVIDERS: Nurse Practitioner
DX: E87.6 Hypokalemia (principal)

== ENCOUNTER → 2019-02-15 | Outpatient (CLI) | payer MEDICARE, BC ==
[2019-02-15 09:07] LABS: CREATININE 0.9 mg/dL (0.6-1.3)
== END ==
LOC: M.ULTRA 02-07 11:21 → M.LAB 02-13 09:00 → M.ULTRA 02-13 09:30 → M.LAB 08:41 → M.ULTRA 09:30
PROVIDERS: Surgery
DX: K44.9 Diaphragmatic hernia without obstruction or gangrene (principal); K42.9 Umbilical hernia without obstruction or gangrene; J98.11 Atelectasis; N28.1 Cyst of kidney, acquired; N20.0 Calculus of kidney; Z79.899 Other long term (current) drug therapy

== ENCOUNTER 2019-05-20 07:17 | Inpatient (IN) | payer MEDICARE, BC ==
[2019-05-20] VITALS (7 sets, daily range): BP systolic 99–126; BP diastolic 49–79
[~2019-05-20] VITALS: Ht 167.6 cm; Wt 97.1 kg
[~2019-05-20 07:17] MED LIST changes: +LIPITOR40 MG PO
[2019-05-20 07:54] LABS: MCH 21.2 pg (26.0-34.0); MCHC 30.6 g/dL (28.0-37.0); MCV 69.3 fL (80.0-100.0); MPV 8.3 fl. (7.2-11.1); NUCLEATED RBCS 0 /100WBC; PLATELET COUNT* 388 thou/uL (150-400); RBC 2.87 mil/uL (4.20-5.00); RDW-CV 19.3 % (10.5-14.5); WBC 7.8 thou/uL (4.0-11.0)
[2019-05-20 07:56] LABS: HEMATOCRIT 19.9 % (37.0-47.0); HEMOGLOBIN 6.1 gm/dL (12.0-15.0)
[2019-05-20 07:57] LABS: CALCIUM 9.9 mg/dL (8.5-10.1); CREATININE 0.9 mg/dL (0.6-1.3); POTASSIUM 3.6 mmol/L (3.5-5.1)
[2019-05-20 08:04] LABS: APTT 23.3 Seconds (25.0-31.3); INR 1.3; PROTIME 13.1 Seconds (9.20-11.50)
[2019-05-20 08:09] LABS: ALBUMIN 3.6 g/dL (3.4-5.0); TOTAL BILIRUBIN 0.6 mg/dL (<0.1-1.0); TOTAL PROTEIN 7.2 g/dL (6.4-8.2)
[2019-05-20 08:23] LABS: ABSOLUTE EOSINOPHILS 0.2 thou/uL (0.0-0.7); ABSOLUTE LYMPHOCYTES 1.6 thou/uL (0.8-5.3); ABSOLUTE MONOCYTES 0.2 thou/uL (0.0-1.2); ABSOLUTE NEUTROPHILS 5.8 thou/uL (1.6-8.1)
[2019-05-20 08:24] LABS: ANISOCYTOSIS 1+; HYPOCHROMASIA 3+; PLATELET ESTIMATE ADEQUATE
[2019-05-20 08:25] LABS: OVALOCYTES Occasional
[2019-05-20 08:26] LABS: MICROCYTES 2+
[2019-05-20 09:00] LABS: INFLUENZA A ANTIGEN Negative (Negative); INFLUENZA B ANTIGEN Negative (Negative)
[2019-05-20 15:49] LABS: URINE BILIRUBIN NEGATIVE (Negative); URINE BLOOD 3+ (Negative); URINE CLARITY CLEAR; URINE COLOR YELLOW; URINE GLUCOSE-RANDOM NEGATIVE (Negative); URINE KETONES NEGATIVE (Negative); URINE LEUKOCYTES-REFLEX NEGATIVE (Negative); URINE NITRITE-REFLEX NEGATIVE (Negative); URINE PROTEIN TRACE (Negative); URINE UROBILINOGEN 0.2 E.U./dl (0.2-1.0)
[2019-05-20 16:07] LABS: HYALINE CASTS 0-3 Few /LPF (None Seen); URINE RBC >20 Many /HPF (0-2)
[2019-05-20 16:08] LABS: CRYSTALS None Seen /LPF (None Seen); MUCUS None Seen strn/LPF (None Seen); SQUAMOUS 0-3 Few /LPF (0-3)
[2019-05-20 16:09] LABS: BACTERIA-REFLEX None Seen /HPF (None Seen); URINE WBC-REFLEX None Seen /HPF (0-5)
[2019-05-20 16:23] LABS: CHOLESTEROL 103 mg/dL (<200); HDL CHOLESTEROL 51 mg/dL (>40); LDL CHOLESTEROL 42 mg/dL (<100); TRIGLYCERIDE 50 mg/dL (<150); VLDL 10 mg/dL (<40)
[2019-05-20 16:25] LABS: SERUM ASSESSMENT Clear
--- NOTE | 2019-05-20 16:56 | 2DMMODE ---
[place] [address] 2 D/M-MODE ECHOCARDIOGRAM Name: GARRICKHERBERTJAYLENE Room: [place] [address] ADM IN .R.#: [id number] Admission: 05/20/19 Attend Phys: Yaniv Armando Discharge: Date of : 43 Date of Service: 05/20/19 1655 Report #: [id number] THIS REPORT FOR: //name// APPROVED REPORT Study performed: 05/20/2019 14:27:17 EXAM: Comprehensive 2D, Doppler, and color-flow Echocardiogram BSA: 2.08 HR: 108 bpm BP: 99/78 mmHg Other Information Study Quality: Technically Difficult Technically limited study due to uncooperative patient. Indications Dyspnea 2D Dimensions IVSd: 14.34 (7-11mm) LVOT Diam: 22.23 (18-24mm) LVDd: 45.69 mm PWd: 9.90 (7-11mm) Ascending Ao: 25.65 (22-36mm) LVDs: 29.30 (25-40mm) Aortic Root: 27.77 mm Mitral Valve MV Mean Gr.: 2.99 mmHg Pulmonary Valve PV Peak Pawel.: 1.16 m/s PV Peak Gr.: 5.35 mmHg Tricuspid Valve RAP Estimate: 5.00 mmHg TR Peak Gr.: 13.81 mmHg RVSP: 18.81 mmHg PA Pressure: 18.81 mmHg Left Ventricle The left ventricle is normal size. There is normal LV segmental wall motion. There is normal left ventricular wall thickness. Left ventricular systolic function is normal. LVEF is 60-65%. [place] [address] 2 D/M-MODE ECHOCARDIOGRAM Name: JAYLENE TOVAR Room: [address] IN [facility]#: [id number] Admission: 05/20/19 Attend Phys: Yaniv Armando Discharge: Date of : 43 Date of Service: 05/20/19 1655 Report #: [id number] The right ventricle is normal size. Atria Left atrium is moderately dilated. Interatrial septum not well visualized. Right atrium is moderately dilated. Aortic Valve The Aortic valve is sclerotic. Mitral Valve There is mitral annular calcification. There is no mitral valve regurgitation noted. No evidence of mitral valve stenosis. Tricuspid Valve The tricuspid valve is normal in structure. Trace tricuspid regurgitation. Pulmonic Valve The pulmonary valve is normal in structure. There is no pulmonic valvular regurgitation. Great Vessels The aortic root is normal in size. IVC is not visualized. Pericardium Trace pericardial effusion. <Conclusion> The left ventricle is normal size. There is normal left ventricular wall thickness. Left ventricular systolic function is normal. LVEF is 60-65%. Left atrium is moderately dilated. Right atrium is moderately dilated. The Aortic valve is sclerotic. There is mitral annular calcification. <ELECTRONICALLY SIGNED> By: Anup Garcia MD, FACC 05/20/191654 54 54 Anup Garcia MD, FACC /INF
--- NOTE | 2019-05-20 17:11 | EKG ---
[place] [address] ELECTROCARDIOGRAM REPORT Name: JAYLENE TOVAR Room: [place] [address] ADM IN .R.#: [id number] Admission: 05/20/19 Attend Phys: Michelle Elkins Discharge: Date of : 43 Report #: [id number] THIS REPORT FOR: //name// [facility] ED Test Date: 2019-05-20 Test Time: 07:21:17 Pat Name: JAYLENE TOVAR Department: Room: [facility] Gender: F Rn Faculty: MS : 1945 Requested By: Radha Jones Order Number: [id number] MD: Anup Garcia Measurements Intervals [place] Rate: 132 P: [place]: QRS: 31 QRSD: 91 T: 92 QT: 313 QTc: 464 Interpretive Statements Atrial fibrillation Nonspecific repol abnormality, lateral leads Compared to ECG 11/23/2018 11:02:45 Early repolarization now present Sinus rhythm no longer present First degree AV block no longer present ST (T wave) deviation no longer present Electronically Signed On 05-20-2019 17:10:47 [employer]SEM[employer] INSPECTOR by Anup Garcia [email or web address] <ELECTRONICALLY SIGNED> By: Anup Garcia MD, FACC 05/20/19 1710 0 0 Anup Garcia MD, FAC /EPI
[2019-05-20 18:08] LABS: % SATURATION 2 % (20-39); IRON 11 ug/dL (50-175)
[2019-05-20] MEDS ORDERED: POTASSIUM20 PO (20:22)
[2019-05-20] MEDS ORDERED: CARTIA XT120 M1 PO (20:24)
[2019-05-20] MEDS ORDERED: BENTYL 10 MG CA10 MG PO (20:25)
[2019-05-20] MEDS ORDERED: ALLEGRA ALLERG180 MG PO (20:26)
[2019-05-20] MEDS ORDERED: PROBIOTIC1 EAC2 PO (20:30)
[2019-05-21 00:06] VITALS: BP 120/46
[2019-05-21 04:33] VITALS: BP 107/70
[2019-05-21 05:23] LABS: HEMATOCRIT 20.5 % (37.0-47.0); MCH 21.6 pg (26.0-34.0); MCV 69.5 fL (80.0-100.0); MPV 8.4 fl. (7.2-11.1); RBC 2.95 mil/uL (4.20-5.00); RDW-CV 20.4 % (10.5-14.5); WBC 3.9 thou/uL (4.0-11.0)
[2019-05-21 05:31] LABS: HEMOGLOBIN 6.4 gm/dL (12.0-15.0)
[2019-05-21 06:59] VITALS: BP 104/77; BP 139/71; BP 150/109; BP 154/71; BP 167/81
[2019-05-21 08:10] VITALS: BP 167/81
[2019-05-21 11:35] VITALS: BP 139/71
[2019-05-21 12:34] LABS: HEMATOCRIT 23.5 % (37.0-47.0); HEMOGLOBIN 7.4 gm/dL (12.0-15.0)
[2019-05-21 20:00] VITALS: BP 106/66
[2019-05-22 03:44] VITALS: BP 120/79
--- NOTE | 2019-05-22 06:13 | CON ---
[address] [address] CONSULTATION Name: JAYLENE TOVAR Room: [address] IN .R.#: [id number] Admission: 05/20/19 Attend Phys: Michelle Elkins Discharge: Date of : 43 Report #: [id number] THIS REPORT FOR: //name// CC: Anup Armando DATE OF SERVICE: 05/22/2019 PULMONARY CONSULT REASON FOR CONSULT: I was asked to see this 73-year-old lady for cpceu-uf-rnqmcca respiratory failure, COPD, obstructive sleep apnea-hypopnea syndrome, clearance for endoscopy. HISTORY OF PRESENT ILLNESS: Apparently, she has been agitated on and off. She is on oxygen 5 liters per minute via nasal cannula. She has sleep apnea. She does use her CPAP every night. She presented to the Emergency Room with shortness of breath and weakness. She was found to have hemoglobin of 6.1 and was in AFib with rapid ventricular response. She had been on Eliquis for atrial fibrillation. Currently, she is on 5 liters of oxygen. She does have shortness of breath with activity, which is not worse than before. She denies nausea, vomiting, abdominal pain, gastroesophageal reflux symptoms. She does have occasional cough with small amount of sputum production, which is not worse. PAST MEDICAL HISTORY: COPD, chronic respiratory failure, coronary artery disease, atrial fibrillation, kidney stones, diverticulitis, DVT, obstructive sleep apnea-hypopnea syndrome, ulcerative colitis, morbid obesity, diastolic CHF. She did receive 1-1/2 units of blood. Her hemoglobin yesterday was 7.4. ALLERGIES: CODEINE AND MIDAZOLAM. MEDICATIONS: Iron, Cardizem-CD. She did receive Lasix yesterday. She is on Tylenol, Cardizem CD, gabapentin, Protonix 40 mg daily. SOCIAL HISTORY: History of 07-cdwo-riel smoking, quit smoking 10 years ago. FAMILY HISTORY: Hypertension. REVIEW OF SYSTEMS: As mentioned as above, other systems otherwise negative. PHYSICAL EXAMINATION: GENERAL: This is an obese lady. VITAL SIGNS: Her O2 saturation on 5 liters of oxygen 98%, respiratory rate 20, heart rate 98, blood pressure 120/79, temperature 36.4. HEENT: Normocephalic, atraumatic. Pupils equal, round, [place] [address] CONSULTATION Name: JAYLENE TOVAR Abdi Room: [address]#: [id number] Admission: 05/20/19 Attend Phys: Michelle Elkins Discharge: Date of : 43 Report #: [id number] has shallow oropharynx. Nose is clear. NECK: There is no lymphadenopathy or thyromegaly. CARDIOVASCULAR: Regular rhythm. PMI is nondisplaced. CHEST: Inspection is normal. LUNGS: There is few end expiratory wheezing with forced exhalation. ABDOMEN: Soft and obese. Bowel sounds are good. There is no mass. EXTREMITIES: There is no edema. LYMPHATICS: There is no lymphadenopathy. NEUROLOGIC: She is alert, somewhat agitated. SKIN: Chronic changes. LABORATORY DATA: I reviewed the following lab data: Hemoglobin on admission was 6.1, yesterday after transfusion 7.4. Her hemoglobin in 11/2018 was 12.7. Sodium 139, potassium 3.6, chloride 102, CO2 of 25, glucose 121, BUN 25, creatinine 0.9. Lactic acid 1.4. Troponin less than 0.06. BNP 3344. Influenza A and B negative. INR 1.3, PTT 23.3. Her CT angiogram of abdomen did not show active GI bleeding, diverticulosis of descending and sigmoid colon without evidence of diverticulitis, kidney stone, dense aortic valve and coronary artery calcification, mild chronic interstitial lung changes. Her chest x-ray on 13 shows cardiomegaly, increased interstitial marking ?CHF. IMPRESSION: 1. Omjtm-of-zwdnmhs respiratory failure, multifactorial in etiology. 2. Severe chronic obstructive pulmonary disease, oxygen dependent. 3. Atrial fibrillation with rapid ventricular response, now rate controlled. 4. Coronary artery disease. 5. Obstructive sleep apnea-hypopnea syndrome. 6. Anemia, gastrointestinal bleeding? source. 7. Ulcerative colitis. 8. Diastolic congestive heart failure. 9. Ex-smoker. 10. Morbid obesity. PLAN AND RECOMMENDATIONS: 1. The patient has morbid obesity, severe COPD, chornic resp failure obstructive sleep apnea-hypopnea syndrome, poor functional status, diastolic congestive heart failure, atrial fibrillation, so she would be at rczjoryq-dz-qbxf risk of developing pulmonary complications (worsening respiratory failure requiring intubation and mechanical ventilatory support, aspiration, etc.). You may consider intubating her during the procedure for airway protection and extubate after the procedure is done. 2. Start bronchodilator, Atrovent only, avoid albuterol since she presented with [place]ib [place] [address] CONSULTATION Name: JAYLENE TOVAR Room: [address] [facility] IN M.R.#: [id number] Admission: 05/20/19 Attend Phys: Michelle Elkins Discharge: Date of : 43 Report #: [id number] 3. GI is consulted. May consider Protonix drip. 4. Monitor hemoglobin. 5. Start inhaled corticosteroid. 6. May use home CPAP during sleep. If it is not available, may start BiPAP 04/12, rate of 10 during sleep and p.r.n. during day for worsening shortness of breath. 8. Cardiology is on the case. Follow Cardiology recommendations. 9. She has been off Eliquis for 48 hours, so she does not need reversal agent. 10. The findings and recommendations were discussed with the patient and RN. I have answered all of the patient's questions. Thank you very much for allowing me to participate in care of this very nice lady. <ELECTRONICALLY SIGNED> By: Sergio Hernandez MD 05/22/19 0613 0450 0519Sergio Hernandez MD /nt
[2019-05-22 08:00] VITALS: BP 133/107
[2019-05-22 12:16] VITALS: BP 130/77
[2019-05-22 15:52] LABS: HEMATOCRIT 24.8 % (37.0-47.0); HEMOGLOBIN 7.7 gm/dL (12.0-15.0)
[2019-05-22 16:16] LABS: HEMATOCRIT 25.4 % (37.0-47.0); HEMOGLOBIN 7.7 gm/dL (12.0-15.0); MCH 22.1 pg (26.0-34.0); MCHC 30.3 g/dL (28.0-37.0); MCV 72.9 fL (80.0-100.0); MPV 8.7 fl. (7.2-11.1); RBC 3.49 mil/uL (4.20-5.00); RDW-CV 21.2 % (10.5-14.5); WBC 12.7 thou/uL (4.0-11.0)
[2019-05-22 16:25] LABS: ALBUMIN 3.9 g/dL (3.4-5.0); CREATININE 0.9 mg/dL (0.6-1.3); POTASSIUM 3.2 mmol/L (3.5-5.1); TOTAL BILIRUBIN 0.6 mg/dL (<0.1-1.0)
[2019-05-22 19:40] VITALS: BP 111/88
[2019-05-23] VITALS (9 sets, daily range): BP systolic 108–143; BP diastolic 60–108
[2019-05-23 09:39] LABS: HEMATOCRIT 24.7 % (37.0-47.0); HEMOGLOBIN 7.4 gm/dL (12.0-15.0); MCH 22.2 pg (26.0-34.0); MCHC 30.1 g/dL (28.0-37.0); MCV 73.7 fL (80.0-100.0); MPV 8.1 fl. (7.2-11.1); RBC 3.35 mil/uL (4.20-5.00); RDW-CV 21.4 % (10.5-14.5)
[2019-05-23 09:53] LABS: ALBUMIN 3.3 g/dL (3.4-5.0); CALCIUM 9.2 mg/dL (8.5-10.1); POTASSIUM 3.6 mmol/L (3.5-5.1); TOTAL BILIRUBIN 0.5 mg/dL (<0.1-1.0); TOTAL PROTEIN 6.3 g/dL (6.4-8.2)
[2019-05-23 10:17] LABS: BE 2.3 mmol/L (-2 to +3); PCO2 44.1 mmHg (35.0-45.0); pH 7.408 (7.340-7.450)
--- NOTE | 2019-05-23 12:55 | CON ---
[address] [address] CONSULTATION Name: JAYLENE TOVAR Room: [address] IN M.R.#: [id number] Admission: 05/20/19 Attend Phys: Michelle Elkins Discharge: Date of : 43 Report #: [id number] THIS REPORT FOR: //name// CC: Anup Armando DICTATED BY: Ruchi Sharp [facility] DATE OF SERVICE: 05/20/2019 Please note at the time of this dictation, the patient was seen and physically examined by myself. REASON FOR CONSULTATION: Acute anemia with history of UC. HISTORY OF PRESENT ILLNESS: This is a pleasant 73-year-old female who was complaining of some chest pain for the last couple of days, increased shortness of air and has increase in fatigue. She has also been increasing her oxygen use in which she was up to 4 liters given that she was having worsening of her symptoms this morning prompted her to come in to be further evaluated. The patient does have a longstanding history of UC. She recently underwent a colonoscopy in February which showed diverticulosis. She had friability with bleeding throughout the entire colon with noted internal and external hemorrhoids. The patient had been on Apriso prior to this and she was switched over to Remicade. She had her induction doses with her last dose being on 04/24. She is due on 06/19 for her first maintenance dose and since starting on Remicade, patient states that she feels significantly better as far as her bowel and she is no longer having any nocturnal or urgency in her stooling. She has not noticed any blood in her stooling and her bowels are moving soft and formed, normal consistency about once or twice a day. She is not having any abdominal discomfort with any of this. She denies any nausea or vomiting or any abdominal pain at the present time. When the patient was last seen in the office, she had blood work done on 02/15 that showed a hemoglobin of 11.4 when she was admitted, she was 6.1. ALLERGIES: CODEINE AND VERSED. MEDICATIONS FROM HOME: Include DuoNeb, Tambocor, Lasix, Cardizem, K-Dur, Eliquis, Celexa, Neurontin, Apriso, Bentyl and she has completely tapered off of her prednisone as of 1 month ago. PAST MEDICAL HISTORY: CAD, hypertension, hyperlipidemia, history of an [place], kidney stones, diverticulitis, atrial fib, history of DVT, arthritis, prediabetic, [place] [address] CONSULTATION Name: JAYLENE TOVAR Room: [address] IN .R.#: [id number] Admission: 05/20/19 Attend Phys: Michelle Elkins Discharge: Date of : 43 Report #: [id number] PAST SURGICAL HISTORY: Hip replacement, fractured wrist, cholecystectomy, right shoulder replacement, neck surgery. FAMILY HISTORY: Noncontributory. SOCIAL HISTORY: Past use of tobacco, alcohol rarely, but socially on special occasions and denies any illegal drug use. REVIEW OF SYSTEMS: Twelve-point review of systems is essentially negative except what is mentioned in the HPI. PHYSICAL EXAMINATION: VITAL SIGNS: Temperature 37.6, pulse 111, respirations are 25, blood pressure is 94/75. HEART: Regular rate and rhythm, but tachycardic. LUNGS: Diminished and short of breath. ABDOMEN: Soft, positive bowel sounds in all 4 quadrants with no masses or tenderness noted. LABORATORY DATA: Hemoglobin 6.1 on admission with beginning a transfusion of 1 unit of blood; white count is 7.8; platelets 388. BUN is 25, creatinine is 0.9, GFR 61. PT is 13.1, INR is 1.3. IMAGING: Chest x-ray shows cardiomegaly with bilateral diffuse interstitial pulmonary opacities. IMPRESSION: 1. Acute anemia with no overt bleeding noted. 2. Shortness of air. 3. Ulcerative colitis. Recent Remicade, last infusion on 04/24, next infusion was on 06/19. 4. Anticoagulant therapy, atrial fibrillation, on Eliquis. PLAN: 1. Labs, B12, iron, iron studies, ferritin, and vitamin D. 2. No plans for any endoscopic evaluation at this time since she is not having any overt bleeding. 3. We will await patient's response to blood and after Dr. Dean sees [place] [address] CONSULTATION Name: JAYLENE TOVAR Room: [address] IN [facility]#: [id number] Admission: 05/20/19 Attend Phys: Michelle Elkins Discharge: Date of : 43 Report #: [id number] Thank you for allowing us to participate in this patient's care. Please do not hesitate to call with any questions in regard to this consult. <ELECTRONICALLY SIGNED> By: Tatyana Dean MD 05/23/19 1255 1157 2250Tatyana Dean MD /nt
[2019-05-23 14:51] LABS: URINE BILIRUBIN NEGATIVE (Negative); URINE BLOOD 3+ (Negative); URINE CLARITY CLEAR; URINE COLOR YELLOW; URINE GLUCOSE-RANDOM NEGATIVE (Negative); URINE KETONES NEGATIVE (Negative); URINE LEUKOCYTES-REFLEX TRACE (Negative); URINE NITRITE-REFLEX NEGATIVE (Negative); URINE PROTEIN TRACE (Negative); URINE SPECIFIC GRAVITY 1.015 (1.005-1.030); URINE UROBILINOGEN 0.2 E.U./dl (0.2-1.0)
[2019-05-23 14:59] LABS: HYALINE CASTS 0-3 Few /LPF (None Seen)
[2019-05-23 15:00] LABS: URINE RBC >20 Many /HPF (0-2)
[2019-05-23 15:03] LABS: BACTERIA-REFLEX 1-9 Few /HPF (None Seen); CRYSTALS None Seen /LPF (None Seen); MUCUS None Seen strn/LPF (None Seen); SQUAMOUS 0-3 Few /LPF (0-3); URINE WBC-REFLEX 0-5 Rare /HPF (0-5)
[2019-05-24] VITALS (15 sets, daily range): BP systolic 113–176; BP diastolic 47–86
[2019-05-24 02:25] LABS: PCO2 VENOUS 46.4 mmHg (41.0-51.0); PO2 VENOUS 29.9 mmHg (35.0-45.0)
[2019-05-24 02:26] LABS: BE -1.2 mmol/L (-2 to +3)
--- NOTE | 2019-05-24 07:45 | CON ---
[address] [address] CONSULTATION Name: JAYLENE TOVAR Room: [address] IN M.R.#: [id number] Admission: 05/20/19 Attend Phys: Michelle Elkins Discharge: Date of : 43 Report #: [id number] THIS REPORT FOR: //name// CC: Anup Armando DATE OF SERVICE: 05/23/2019 ATTENDING PHYSICIAN: Dr. Armando. REASON FOR EVALUATION: Possible sepsis. HISTORY OF PRESENT ILLNESS: Chart reviewed, patient examined. This is a 73-year-old known to myself, has fairly significant medical history including atherosclerotic coronary artery disease, hypertension, renal lithiasis, history of diverticulosis with diverticulitis, who presented to the Emergency Room with progressive dyspnea, associated fatigue over a number of days, chest pain. She is normally on supplemental oxygen, chronic pulmonary failure with 4 liters, was found to have low hemoglobin 6.1, felt likely had gastrointestinal hemorrhage. Of note, had a previous colonoscopy in 02/2019, had friability and bleeding throughout the entire colon, felt to be consistent with ulcerative colitis. She had been started on Remicade, received loading doses. She was transfused and apparently had an adverse drug reaction noted over the course of the last 48-72 hours, had become profoundly encephalopathic including hallucinations, which is entirely different from her baseline. She is quite lucid. It is notable that she has been off her Celexa for a number of days. There is some question of withdrawal symptoms as relates to that, had a screen for sepsis with elevated white count, increased from 3.9 up to 17,000. She has not had recorded temperature elevation. She has not been on antibiotics. Did have stool study, which is pending. She is unable to give any additional history. I did speak to her daughter who relates most of the information. ALLERGIES: CODEINE, MIDAZOLAM. CURRENT MEDICATIONS: Include levalbuterol, ipratropium and albuterol inhaler, potassium chloride, furosemide, budesonide, ondansetron, diltiazem CD, pantoprazole, gabapentin. PAST MEDICAL HISTORY: Known coronary artery disease, previous acute myocardial infarction, hypertension, hyperlipidemia, history of necrotizing fasciitis back in 2010, degenerative joint disease, previous cholecystectomy, chronic anemia, renal insufficiency, renal lithiasis, history of diverticulitis, colitis, history of DVT, atrial fibrillation, COPD, O2 requiring support, cardiomyopathy. SOCIAL HISTORY: Former smoker. No ethanol. [place] [address] CONSULTATION Name: JAYLENE TOVAR Room: [address] IN [facility]#: [id number] Admission: 05/20/19 Attend Phys: Michelle Elkins Discharge: Date of : 43 Report #: [id number] FAMILY HISTORY: Noncontributory. REVIEW OF SYSTEMS: Not obtainable. PHYSICAL EXAMINATION: GENERAL: She is quite agitated. She is restless. She is not able to be reengaged or redirected, likely hallucinating, moderate to marked distress, appears somewhat chronically ill, although not overtly undernourished. VITAL SIGNS: Temperature 98.3, pulse 89, respirations 21, blood pressure 128/84. SKIN: Warm, dry, no rashes. NECK: Supple. She is moving freely. HEENT: Normocephalic. Difficult to ascertain eye movements. LUNGS: Somewhat diminished, otherwise, clear breath sounds. HEART: Borderline tachycardic, seemingly regular. I do not appreciate any murmurs. ABDOMEN: Soft. There is no CVA tenderness. GENITOURINARY: Deferred. RECTAL: Deferred. LABORATORY DATA: CT of the head, no acute intracranial hemorrhage. ABGs: pH 7.408, pCO2 of 44.1 pO2 of 67.0 on 3 liters. Electrolytes, sodium 149, potassium 3.6, chloride 111, bicarbonate is 31, anion gap of 7, BUN and creatinine 27 and 1.0, glucose of 136. LFTs unremarkable. Albumin 3.3, total protein 6.3, estimated GFR of 54. CBC, white count of 17.0, H and H 7.4 as post-transfusion and 24.7, platelets of 390. ASSESSMENT: Possible sepsis, profound encephalopathy, would be concerned about adverse drug effect, perhaps withdrawal from the Celexa, try to maintain some degree of sedation. Urinalysis was otherwise unremarkable, had scant. There is not a significant amount of retained urine. We will check blood cultures. I think it is reasonable to start empiric therapy. It is not entirely clear the source. If she indeed have focus of pyogenic infection at this point, we would consider lumbar puncture, although at this point, we would have to essentially make her nonresponsive, allow that to happen. She clinically does not appear to have meningitis picture with stiff neck, etc., we will add IV acyclovir in case there is an issue of herpes simplex encephalitis. Discussed with the daughter as she remains quite tenuous. <ELECTRONICALLY SIGNED> By: Santana Macario MD 05/24/19 0745 1408 [id number] Macario MD /nt
[2019-05-24 09:24] LABS: ALBUMIN 3.3 g/dL (3.4-5.0); CALCIUM 8.9 mg/dL (8.5-10.1); CREATININE 0.9 mg/dL (0.6-1.3); MAGNESIUM 2.3 mg/dL (1.8-2.4); POTASSIUM 3.2 mmol/L (3.5-5.1); TOTAL BILIRUBIN 0.8 mg/dL (<0.1-1.0); TOTAL PROTEIN 6.4 g/dL (6.4-8.2)
[2019-05-24 21:32] LABS: BE -1.8 mmol/L (-2 to +3)
[2019-05-25] VITALS (27 sets, daily range): BP systolic 76–195; BP diastolic 45–144
[2019-05-25 05:33] LABS: WBC 10.1 thou/uL (4.0-11.0)
[2019-05-25 05:35] LABS: HEMOGLOBIN 8.3 gm/dL (12.0-15.0); MCH 23.3 pg (26.0-34.0); MCHC 30.8 g/dL (28.0-37.0); MCV 75.8 fL (80.0-100.0); MPV 8.4 fl. (7.2-11.1); RBC 3.57 mil/uL (4.20-5.00)
[2019-05-25 05:46] LABS: ALBUMIN 3.1 g/dL (3.4-5.0); CALCIUM 8.9 mg/dL (8.5-10.1); CREATININE 1.2 mg/dL (0.6-1.3); MAGNESIUM 2.3 mg/dL (1.8-2.4); POTASSIUM 3.1 mmol/L (3.5-5.1); TOTAL BILIRUBIN 0.7 mg/dL (<0.1-1.0); TOTAL PROTEIN 6.5 g/dL (6.4-8.2)
[2019-05-25 13:11] LABS: pH 7.256 (7.340-7.450)
[2019-05-25 13:12] LABS: PCO2 59.3 mmHg (35.0-45.0); PO2 54.4 mmHg (75.0-100.0)
[2019-05-26] VITALS (41 sets, daily range): BP systolic 75–147; BP diastolic 42–99
[2019-05-26 04:38] LABS: HEMATOCRIT 29.7 % (37.0-47.0); MCH 23.4 pg (26.0-34.0); MCHC 30.4 g/dL (28.0-37.0); MPV 8.6 fl. (7.2-11.1); RBC 3.86 mil/uL (4.20-5.00); RDW-CV 22.7 % (10.5-14.5); WBC 8.1 thou/uL (4.0-11.0)
[2019-05-26 04:57] LABS: ALBUMIN 2.9 g/dL (3.4-5.0); CALCIUM 8.9 mg/dL (8.5-10.1); CREATININE 0.9 mg/dL (0.6-1.3); POTASSIUM 3.6 mmol/L (3.5-5.1); TOTAL BILIRUBIN 0.9 mg/dL (<0.1-1.0); TOTAL PROTEIN 6.3 g/dL (6.4-8.2)
[2019-05-26 09:28] LABS: BE -0.3 mmol/L (-2 to +3); PCO2 38.2 mmHg (35.0-45.0); PO2 72.6 mmHg (75.0-100.0); pH 7.418 (7.340-7.450)
[2019-05-27] VITALS (40 sets, daily range): BP systolic 43–168; BP diastolic 11–108
[2019-05-27 02:48] LABS: HEMATOCRIT 31.2 % (37.0-47.0); HEMOGLOBIN 9.6 gm/dL (12.0-15.0); MCH 23.3 pg (26.0-34.0); MCHC 30.6 g/dL (28.0-37.0); MCV 76.2 fL (80.0-100.0); MPV 8.3 fl. (7.2-11.1); RBC 4.1 mil/uL (4.20-5.00); RDW-CV 23.1 % (10.5-14.5); WBC 10.3 thou/uL (4.0-11.0)
[2019-05-27 03:07] LABS: ALBUMIN 2.8 g/dL (3.4-5.0); CALCIUM 9.3 mg/dL (8.5-10.1); CREATININE 0.9 mg/dL (0.6-1.3); MAGNESIUM 1.8 mg/dL (1.8-2.4); POTASSIUM 3.8 mmol/L (3.5-5.1); TOTAL BILIRUBIN 0.8 mg/dL (<0.1-1.0); TOTAL PROTEIN 6.2 g/dL (6.4-8.2)
--- NOTE | 2019-05-27 14:15 | EKG ---
[place] [address] ELECTROCARDIOGRAM REPORT Name: JAYLENE TOVAR Room: [address] ADM IN M.R.#: [id number] Admission: 05/20/19 Attend Phys: Michelle Elkins Discharge: Date of : 43 Report #: [id number] THIS REPORT FOR: //name// [facility] Test Date: 2019-05-26 Test Time: 11:03:56 Pat Name: JAYLENE TOVAR Department: Room: [address] Gender: F Magistrate Judge: [id number] : 1945 Requested By: Jarrell Hobson Order Number: [id number] Reading MD: Reginald Montemayor Measurements Intervals [place] Rate: 83 P: AL: QRS: 10 QRSD: 83 T: -25 QT: 408 QTc: 480 Interpretive Statements Atrial fibrillation artifact noted Ventricular premature complex Low voltage, extremity leads Compared to ECG 05/20/2019 07:21:17 Ventricular premature complex(es) now present Low QRS voltage now present Early repolarization no longer present Electronically Signed On 05-27-2019 14:15:14 T[employer] LAW[employer]ER by Reginald Montemayor [email or web address] <ELECTRONICALLY SIGNED> By: Reginald Montemayor MD, [facility] 05/27/19 1415 1103 1103 Reginald Montemayor MD, [facility] /EPI
[2019-05-28] VITALS (31 sets, daily range): BP systolic 57–165; BP diastolic 30–112
[2019-05-28 08:13] LABS: CALCIUM 8.6 mg/dL (8.5-10.1); CREATININE 1.8 mg/dL (0.6-1.3); MAGNESIUM 1.7 mg/dL (1.8-2.4); POTASSIUM 3.9 mmol/L (3.5-5.1)
[2019-05-29] VITALS (40 sets, daily range): BP systolic 75–151; BP diastolic 44–96
[2019-05-29 03:43] LABS: HEMATOCRIT 30.1 % (37.0-47.0); MCH 23.7 pg (26.0-34.0); MCHC 29.9 g/dL (28.0-37.0); MCV 79.3 fL (80.0-100.0); MPV 8.6 fl. (7.2-11.1); RBC 3.8 mil/uL (4.20-5.00); RDW-CV 24.7 % (10.5-14.5); WBC 19.3 thou/uL (4.0-11.0)
[2019-05-29 03:47] LABS: CALCIUM 8.7 mg/dL (8.5-10.1); MAGNESIUM 2.3 mg/dL (1.8-2.4); POTASSIUM 4.3 mmol/L (3.5-5.1)
[2019-05-29 03:50] LABS: CREATININE 2.9 mg/dL (0.6-1.3)
[2019-05-29 14:01] LABS: URINE BILIRUBIN NEGATIVE (Negative); URINE BLOOD 3+ (Negative); URINE CLARITY SL CLOUDY; URINE COLOR DARK YELLOW; URINE GLUCOSE-RANDOM NEGATIVE (Negative); URINE KETONES NEGATIVE (Negative); URINE LEUKOCYTES-REFLEX NEGATIVE (Negative); URINE NITRITE-REFLEX NEGATIVE (Negative); URINE PROTEIN 2+ (Negative); URINE SPECIFIC GRAVITY 1.015 (1.005-1.030); URINE UROBILINOGEN 0.2 E.U./dl (0.2-1.0)
[2019-05-29 14:09] LABS: SQUAMOUS 0-3 Few /LPF (0-3); URINE WBC-REFLEX >25 Many /HPF (0-5)
[2019-05-29 14:10] LABS: BACTERIA-REFLEX >30 Many /HPF (None Seen); HYALINE CASTS 0-3 Few /LPF (None Seen); MUCUS 0-3 Light strn/LPF (None Seen)
[2019-05-29 14:13] LABS: CRYSTALS None Seen /LPF (None Seen)
[2019-05-29 14:17] LABS: URINE POTASSIUM-RANDOM 44.2 mmol/L
[2019-05-30] VITALS (17 sets, daily range): BP systolic 81–157; BP diastolic 42–111
[2019-05-30 05:09] LABS: HEMATOCRIT 24.1 % (37.0-47.0); HEMOGLOBIN 7.5 gm/dL (12.0-15.0); MCH 24.3 pg (26.0-34.0); MCHC 31.2 g/dL (28.0-37.0); MCV 77.9 fL (80.0-100.0); MPV 8.6 fl. (7.2-11.1); RBC 3.1 mil/uL (4.20-5.00); RDW-CV 29.9 % (10.5-14.5); WBC 13.4 thou/uL (4.0-11.0)
[2019-05-30 05:24] LABS: CALCIUM 7.8 mg/dL (8.5-10.1); CREATININE 3.1 mg/dL (0.6-1.3); POTASSIUM 3.3 mmol/L (3.5-5.1)
[2019-05-30 13:23] LABS: SMEAR FOR EOSINOPHILS No Eosinophils Seen
[2019-05-31] VITALS (16 sets, daily range): BP systolic 97–146; BP diastolic 38–105
[2019-05-31 04:14] LABS: ABSOLUTE EOSINOPHILS 0.5 thou/uL (0.0-0.7); ABSOLUTE LYMPHOCYTES 0.9 thou/uL (0.8-5.3); ABSOLUTE MONOCYTES 1.1 thou/uL (0.0-1.2); ABSOLUTE NEUTROPHILS 9.5 thou/uL (1.6-8.1); BASOPHILS 0.4 %; EOSINOPHILS 4.2 %; HEMATOCRIT 25.5 % (37.0-47.0); HEMOGLOBIN 7.8 gm/dL (12.0-15.0); LYMPHOCYTES 7.1 %; MCH 24.6 pg (26.0-34.0); MCHC 30.7 g/dL (28.0-37.0); MONOCYTES 9.4 %; MPV 9.1 fl. (7.2-11.1); NUCLEATED RBCS 0 /100WBC; PLATELET COUNT* 190 thou/uL (150-400); POLYS 78.9 %; RBC 3.18 mil/uL (4.20-5.00); RDW-CV 30.9 % (10.5-14.5); WBC 12.1 thou/uL (4.0-11.0)
[2019-05-31 04:21] LABS: ALBUMIN 2.3 g/dL (3.4-5.0); CALCIUM 8.6 mg/dL (8.5-10.1); CREATININE 2.2 mg/dL (0.6-1.3); MAGNESIUM 1.8 mg/dL (1.8-2.4); PHOSPHORUS* 3.9 mg/dL (2.5-4.9); POTASSIUM 4.1 mmol/L (3.5-5.1); TOTAL BILIRUBIN 0.6 mg/dL (<0.1-1.0); TOTAL PROTEIN 5.5 g/dL (6.4-8.2)
[2019-05-31 06:22] LABS: HYPOCHROMASIA 1+; TARGET CELLS 1+
[2019-05-31 06:23] LABS: BURR CELLS 1+; OVALOCYTES 2+
[2019-05-31 06:24] LABS: ANISOCYTOSIS 2+; PLATELET ESTIMATE ADEQUATE
[2019-06-01] VITALS (144 sets, daily range): BP systolic 67–209; BP diastolic 38–157
[2019-06-01 02:52] LABS: ALBUMIN 2.7 g/dL (3.4-5.0); CALCIUM 9.6 mg/dL (8.5-10.1); CREATININE 1.5 mg/dL (0.6-1.3); MAGNESIUM 1.6 mg/dL (1.8-2.4); PHOSPHORUS* 2.5 mg/dL (2.5-4.9); POTASSIUM 3.7 mmol/L (3.5-5.1)
[2019-06-01 03:31] LABS: HEMOGLOBIN 8.9 gm/dL (12.0-15.0); NUCLEATED RBCS 0 /100WBC
[2019-06-01 03:33] LABS: HEMATOCRIT 28.9 % (37.0-47.0); MCH 24.7 pg (26.0-34.0); MCHC 30.7 g/dL (28.0-37.0); MCV 80.6 fL (80.0-100.0); MPV 10.1 fl. (7.2-11.1); PLATELET COUNT* 225 thou/uL (150-400); RBC 3.58 mil/uL (4.20-5.00); WBC 8.7 thou/uL (4.0-11.0)
[2019-06-01 06:42] LABS: ABSOLUTE BASOPHILS 0.1 thou/uL (0.0-0.2); ABSOLUTE EOSINOPHILS 0.3 thou/uL (0.0-0.7); ABSOLUTE LYMPHOCYTES 0.5 thou/uL (0.8-5.3); ABSOLUTE MONOCYTES 0.8 thou/uL (0.0-1.2); HYPOCHROMASIA 1+; OVALOCYTES 1+; PLATELET ESTIMATE ADEQUATE; TOXIC GRANULATION 1+
[2019-06-01 06:43] LABS: ANISOCYTOSIS 1+; POIKILOCYTOSIS 2+; TARGET CELLS 1+
[2019-06-02] VITALS (16 sets, daily range): BP systolic 95–174; BP diastolic 55–103
[2019-06-02 06:48] LABS: ALBUMIN 2.7 g/dL (3.4-5.0); CALCIUM 9.2 mg/dL (8.5-10.1); CREATININE 1.2 mg/dL (0.6-1.3); MAGNESIUM 1.4 mg/dL (1.8-2.4); PHOSPHORUS* 2.5 mg/dL (2.5-4.9); POTASSIUM 3.9 mmol/L (3.5-5.1)
[2019-06-02 08:13] LABS: MCV 80.3 fL (80.0-100.0); PLATELET COUNT* 242 thou/uL (150-400); WBC 7.4 thou/uL (4.0-11.0)
[2019-06-02 08:16] LABS: HEMATOCRIT 27.7 % (37.0-47.0); HEMOGLOBIN 8.5 gm/dL (12.0-15.0); MCH 24.5 pg (26.0-34.0); MCHC 30.5 g/dL (28.0-37.0); MPV 8.8 fl. (7.2-11.1); NUCLEATED RBCS 0 /100WBC; RBC 3.45 mil/uL (4.20-5.00); RDW-CV 32.2 % (10.5-14.5)
[2019-06-02 08:46] LABS: ABSOLUTE LYMPHOCYTES 0.6 thou/uL (0.8-5.3); ABSOLUTE MONOCYTES 0.7 thou/uL (0.0-1.2); ABSOLUTE NEUTROPHILS 6.1 thou/uL (1.6-8.1)
[2019-06-02 08:47] LABS: ANISOCYTOSIS 3+; PLATELET ESTIMATE ADEQUATE
[2019-06-02 08:48] LABS: HYPOCHROMASIA 1+; OVALOCYTES 1+; TEARDROPS Occasional
--- NOTE | 2019-06-02 14:22 | OP ---
[facility] [address] [place] [address] OPERATIVE REPORT Name: JAYLENE TOVAR Abdi Room: [address] IN M.R.#: [id number] Admission: 05/20/19 Attend Phys: Michelle Elkins Discharge: Date of : 43 Report #: [id number] THIS REPORT FOR: //name// CC: Anup Armando SURGEON: Alexis Holcomb MD PREOPERATIVE DIAGNOSIS: Left ureteral stone with possible sepsis. POSTOPERATIVE DIAGNOSIS: Left ureteral stone with possible sepsis. PROCEDURE: Panendoscopy and cystoscopy, left retrograde pyelogram, and double-J stent. COMPLICATIONS: No complication. INDICATIONS: This is a 73-year-old white female with a history of left ureteropelvic junction stone. She has had a prolonged ICU course. She has not had positive urine cultures, but still remains very confused. She understands as well as the family risks of bleeding, infection and need of other procedures and that this may not be curative with regards to her mental confusion or overall state. They understand she will need definitive stone treatment in the near future. DESCRIPTION OF PROCEDURE: Informed consent was obtained. The patient was sterilely prepped and draped in dorsal lithotomy position, given appropriate antibiotics. Cystoscopy was carried out. Left retrograde pyelogram was performed showing no problems in the ureter; however, I could see the filling defect in the left UPJ. A 6 x 28 stent was then placed showing a partial curl in the upper pole. She had very small renal pelvis and very small infundibulum. Stent was in good position. There was no evidence of hydronephrotic drip or any purulence. She was taken to recovery room in good condition. <ELECTRONICALLY SIGNED> By: Alexis Holcmob MD 06/02/19 1422 1239 [id number] miguel Holcomb MD /nt
[2019-06-03 00:07] VITALS: BP 146/67
[2019-06-03 05:07] LABS: HEMATOCRIT 28.2 % (37.0-47.0); HEMOGLOBIN 8.6 gm/dL (12.0-15.0); MCH 24.6 pg (26.0-34.0); MCHC 30.5 g/dL (28.0-37.0); MCV 80.5 fL (80.0-100.0); RBC 3.5 mil/uL (4.20-5.00); RDW-CV 32.5 % (10.5-14.5); WBC 6.8 thou/uL (4.0-11.0)
[2019-06-03 05:53] LABS: ALBUMIN 2.9 g/dL (3.4-5.0); CALCIUM 9.1 mg/dL (8.5-10.1); MAGNESIUM 1.9 mg/dL (1.8-2.4); PHOSPHORUS* 2.3 mg/dL (2.5-4.9)
[2019-06-03 08:50] VITALS: BP 149/127
[2019-06-03 08:52] VITALS: BP 152/132
[2019-06-03 20:00] VITALS: BP 156/65
[2019-06-04] VITALS (7 sets, daily range): BP systolic 81–195; BP diastolic 46–147
[2019-06-04 04:28] LABS: HEMATOCRIT 25.9 % (37.0-47.0); HEMOGLOBIN 8.2 gm/dL (12.0-15.0); MCH 25.4 pg (26.0-34.0); MCHC 31.7 g/dL (28.0-37.0); MPV 10.5 fl. (7.2-11.1); RBC 3.24 mil/uL (4.20-5.00); RDW-CV 33.7 % (10.5-14.5); WBC 7.2 thou/uL (4.0-11.0)
[2019-06-04 04:32] LABS: ALBUMIN 2.6 g/dL (3.4-5.0); CALCIUM 8.6 mg/dL (8.5-10.1); CREATININE 0.8 mg/dL (0.6-1.3); MAGNESIUM 1.3 mg/dL (1.8-2.4); POTASSIUM 4.2 mmol/L (3.5-5.1)
[2019-06-05 00:10] VITALS: BP 154/95
[2019-06-05 04:02] VITALS: BP 137/59
[2019-06-05 04:25] LABS: HEMATOCRIT 26.5 % (37.0-47.0); HEMOGLOBIN 8.2 gm/dL (12.0-15.0); MCH 25.3 pg (26.0-34.0); MCHC 31.1 g/dL (28.0-37.0); MCV 81.3 fL (80.0-100.0); MPV 10.1 fl. (7.2-11.1); RBC 3.25 mil/uL (4.20-5.00)
[2019-06-05 04:47] LABS: ALBUMIN 2.4 g/dL (3.4-5.0); CREATININE 0.7 mg/dL (0.6-1.3); POTASSIUM 3.8 mmol/L (3.5-5.1)
[2019-06-05 07:37] VITALS: BP 145/89
[2019-06-05 20:00] VITALS: BP 148/109
[2019-06-06] VITALS: BP 129/73
[2019-06-06 04:00] VITALS: BP 152/71
[2019-06-06 05:45] LABS: ALBUMIN 2.2 g/dL (3.4-5.0); CALCIUM 8.3 mg/dL (8.5-10.1); CREATININE 0.7 mg/dL (0.6-1.3); PHOSPHORUS* 3.5 mg/dL (2.5-4.9); POTASSIUM 4.1 mmol/L (3.5-5.1)
[2019-06-06 05:46] LABS: MAGNESIUM 0.9 mg/dL (1.8-2.4)
[2019-06-06 08:00] VITALS: BP 117/83
[2019-06-06 12:00] VITALS: BP 151/72
[2019-06-06 16:00] VITALS: BP 171/94
[2019-06-06 20:00] VITALS: BP 127/75
[2019-06-07 04:00] VITALS: BP 120/81
[2019-06-07 05:20] LABS: HEMOGLOBIN 8.8 gm/dL (12.0-15.0); MCH 25.6 pg (26.0-34.0); MCHC 31.3 g/dL (28.0-37.0); MCV 81.9 fL (80.0-100.0); RBC 3.42 mil/uL (4.20-5.00); WBC 6.2 thou/uL (4.0-11.0)
[2019-06-07 05:44] LABS: ALBUMIN 2.4 g/dL (3.4-5.0); CALCIUM 8.8 mg/dL (8.5-10.1); CREATININE 0.7 mg/dL (0.6-1.3); PHOSPHORUS* 3.2 mg/dL (2.5-4.9)
[2019-06-07 06:06] LABS: MAGNESIUM 0.9 mg/dL (1.8-2.4)
[2019-06-07 11:47] VITALS: BP 91/48
[2019-06-07] MEDS ORDERED: RISPERIDONE 1 MG1 MG PO (11:56)
[2019-06-07] MEDS ORDERED: PULMICORT0.5 MG/2 M INH (11:56)
[2019-06-07] MEDS ORDERED: VOLTAREN GEL 1100 G1 TOP (11:56)
[2019-06-07] MEDS ORDERED: LOPRESSOR50 PO (11:56)
[2019-06-07] MEDS ORDERED: TYLENOL325 MG PO (11:56)
[2019-06-07] MEDS ORDERED: ZYPREXA10 MG IM (11:56)
[2019-06-07] MEDS ORDERED: HYDROCODON-ACE1 EAC7 PO (11:56)
[2019-06-07] MEDS ORDERED: LIDOPATCH1 EACH TOP (11:56)
[2019-06-07] MEDS ORDERED: FIRVANQ50 MG/1 ML PO (11:56)
[2019-06-07] MEDS ORDERED: MELATONIN5 M1 PO (11:56)
[2019-06-07] MEDS ORDERED: *ELECTROLYTE REPLACE PO (11:56)
== END 2019-06-07 21:25 | DRG 853 ==
LOC: M.ERS 07:17 → M.2W 08:44 → M.TBA-ER 08:44 → M.2W 19:01 → M.ICU 05-23 16:38 → M.2W 06-05 09:09
PROVIDERS: Family Medicine; Internal Medicine; Internal Medicine Pulmonary Disease; Nurse Practitioner Adult Health; Personal Emergency Response Attendant; Registered Nurse; ADMIT Internal Medicine
PROC: 0T778DZ Dilation of Left Ureter with Intraluminal Device, Via Natural or Artificial Opening Endoscopic (ICD-10-PCS; principal; 2019-05-20)
PROC: BT1F1ZZ Fluoroscopy of Left Kidney, Ureter and Bladder using Low Osmolar Contrast (ICD-10-PCS; principal; 2019-05-20)
PROC: 30233N1 Transfusion of Nonautologous Red Blood Cells into Peripheral Vein, Percutaneous Approach (ICD-10-PCS; principal; 2019-05-20)
PROC: 5A09357 Assistance with Respiratory Ventilation, Less than 24 Consecutive Hours, Continuous Positive Airway Pressure (ICD-10-PCS; 2019-05-23)
PROC: 5A09357 Assistance with Respiratory Ventilation, Less than 24 Consecutive Hours, Continuous Positive Airway Pressure (ICD-10-PCS; 2019-05-24)
PROC: 5A09357 Assistance with Respiratory Ventilation, Less than 24 Consecutive Hours, Continuous Positive Airway Pressure (ICD-10-PCS; 2019-05-25)
PROC: 5A09357 Assistance with Respiratory Ventilation, Less than 24 Consecutive Hours, Continuous Positive Airway Pressure (ICD-10-PCS; 2019-05-26)
PROC: 5A09357 Assistance with Respiratory Ventilation, Less than 24 Consecutive Hours, Continuous Positive Airway Pressure (ICD-10-PCS; 2019-05-27)
PROC: 5A09357 Assistance with Respiratory Ventilation, Less than 24 Consecutive Hours, Continuous Positive Airway Pressure (ICD-10-PCS; 2019-05-28)
PROC: 5A09357 Assistance with Respiratory Ventilation, Less than 24 Consecutive Hours, Continuous Positive Airway Pressure (ICD-10-PCS; 2019-06-03)
PROC: 5A09357 Assistance with Respiratory Ventilation, Less than 24 Consecutive Hours, Continuous Positive Airway Pressure (ICD-10-PCS; 2019-06-04)
PROC: 5A09357 Assistance with Respiratory Ventilation, Less than 24 Consecutive Hours, Continuous Positive Airway Pressure (ICD-10-PCS; 2019-06-05)
DX: A41.9 Sepsis, unspecified organism (principal); I50.33 Acute on chronic diastolic (congestive) heart failure; J96.21 Acute and chronic respiratory failure with hypoxia; G92 Toxic encephalopathy; J18.9 Pneumonia, unspecified organism; N17.0 Acute kidney failure with tubular necrosis; K51.90 Ulcerative colitis, unspecified, without complications; I48.20 Chronic atrial fibrillation, unspecified; E87.0 Hyperosmolality and hypernatremia; N39.0 Urinary tract infection, site not specified; J44.0 Chronic obstructive pulmonary disease with (acute) lower respiratory infection; N17.9 Acute kidney failure, unspecified; I13.0 Hypertensive heart and chronic kidney disease with heart failure and stage 1 through stage 4 chronic kidney disease, or unspecified chronic kidney disease; E44.0 Moderate protein-calorie malnutrition; N20.1 Calculus of ureter; I25.110 Atherosclerotic heart disease of native coronary artery with unstable angina pectoris; E78.5 Hyperlipidemia, unspecified; M19.90 Unspecified osteoarthritis, unspecified site; Z96.642 Presence of left artificial hip joint; J44.9 Chronic obstructive pulmonary disease, unspecified; G47.33 Obstructive sleep apnea (adult) (pediatric); F32.9 Major depressive disorder, single episode, unspecified; E66.01 Morbid (severe) obesity due to excess calories; R73.03 Prediabetes; D64.9 Anemia, unspecified; K52.9 Noninfective gastroenteritis and colitis, unspecified; Z96.649 Presence of unspecified artificial hip joint; Z96.611 Presence of right artificial shoulder joint; E66.9 Obesity, unspecified; K57.90 Diverticulosis of intestine, part unspecified, without perforation or abscess without bleeding; D50.9 Iron deficiency anemia, unspecified; K21.9 Gastro-esophageal reflux disease without esophagitis; I35.0 Nonrheumatic aortic (valve) stenosis; I11.0 Hypertensive heart disease with heart failure; R73.9 Hyperglycemia, unspecified; E87.6 Hypokalemia; N18.3 Chronic kidney disease, stage 3 (moderate); N20.0 Calculus of kidney; L89.329 Pressure ulcer of left buttock, unspecified stage; R22.42 Localized swelling, mass and lump, left lower limb; Z95.828 Presence of other vascular implants and grafts; Z79.01 Long term (current) use of anticoagulants; Z99.81 Dependence on supplemental oxygen; I25.2 Old myocardial infarction; Z90.49 Acquired absence of other specified parts of digestive tract; Z87.442 Personal history of urinary calculi; Z68.34 Body mass index [BMI] 34.0-34.9, adult; Z87.891 Personal history of nicotine dependence; Z82.49 Family history of ischemic heart disease and other diseases of the circulatory system; Z79.899 Other long term (current) drug therapy; Z88.5 Allergy status to narcotic agent; Z86.718 Personal history of other venous thrombosis and embolism; Z88.8 Allergy status to other drugs, medicaments and biological substances

== ENCOUNTER 2019-06-07 17:30 | Inpatient (IN) | payer MEDICARE, BC ==
[~2019-06-07] VITALS: Ht 167.6 cm; Wt 106.0 kg
[~2019-06-07 17:30] MED LIST changes: +*ELECTROLYTE REPLACE PO; +ALLEGRA ALLERG180 MG PO; +BENTYL 10 MG CA10 MG PO; +CARTIA XT120 M1 PO; +FIRVANQ50 MG/1 ML PO; +LIDOPATCH1 EACH TOP; +LOPRESSOR50 PO; +MELATONIN5 M1 PO; +PROBIOTIC1 EAC2 PO; +PULMICORT0.5 MG/2 M INH; +RISPERIDONE 1 MG1 MG PO; +TYLENOL325 MG PO; +VOLTAREN GEL 1100 G1 TOP; +ZYPREXA10 MG IM
[2019-06-07 21:20] VITALS: BP 124/82
[2019-06-08 04:33] LABS: HEMATOCRIT 27.7 % (37.0-47.0); HEMOGLOBIN 8.6 gm/dL (12.0-15.0); MCH 25.5 pg (26.0-34.0); MCHC 31.2 g/dL (28.0-37.0); MCV 81.7 fL (80.0-100.0); MPV 9.3 fl. (7.2-11.1); RBC 3.39 mil/uL (4.20-5.00)
[2019-06-08 04:36] LABS: ALBUMIN 2.3 g/dL (3.4-5.0); CALCIUM 8.5 mg/dL (8.5-10.1); CREATININE 0.6 mg/dL (0.6-1.3); MAGNESIUM 1.2 mg/dL (1.8-2.4); PHOSPHORUS* 2.9 mg/dL (2.5-4.9); POTASSIUM 4.2 mmol/L (3.5-5.1)
[2019-06-08 08:00] VITALS: BP 152/92
[2019-06-08 19:30] VITALS: BP 106/73
[2019-06-09 07:57] VITALS: BP 101/69
[2019-06-09 19:30] VITALS: BP 108/62
[2019-06-10 07:54] LABS: CALCIUM 9.3 mg/dL (8.5-10.1); CREATININE 0.6 mg/dL (0.6-1.3); POTASSIUM 4.7 mmol/L (3.5-5.1)
[2019-06-10 07:57] VITALS: BP 154/84
[2019-06-10 11:01] LABS: NUCLEATED RBCS 0 /100WBC; WBC 5.4 thou/uL (4.0-11.0)
[2019-06-10 11:03] LABS: HEMATOCRIT 27.4 % (37.0-47.0); HEMOGLOBIN 8.7 gm/dL (12.0-15.0); MCH 26.5 pg (26.0-34.0); MCHC 31.9 g/dL (28.0-37.0); MCV 83.1 fL (80.0-100.0); MPV 9.8 fl. (7.2-11.1); PLATELET COUNT* 291 thou/uL (150-400); RBC 3.29 mil/uL (4.20-5.00); RDW-CV 35.6 % (10.5-14.5)
[2019-06-10 11:44] LABS: ABSOLUTE EOSINOPHILS 0.3 thou/uL (0.0-0.7); ABSOLUTE LYMPHOCYTES 0.8 thou/uL (0.8-5.3); ABSOLUTE MONOCYTES 0.1 thou/uL (0.0-1.2); ABSOLUTE NEUTROPHILS 4.2 thou/uL (1.6-8.1); ANISOCYTOSIS 2+; ATYPICAL LYMPHS 1 %; PLATELET ESTIMATE ADEQUATE
[2019-06-10 11:45] LABS: TARGET CELLS 1+
[2019-06-10 19:10] VITALS: BP 101/72
[2019-06-11 06:28] LABS: HEMATOCRIT 27.8 % (37.0-47.0); HEMOGLOBIN 8.8 gm/dL (12.0-15.0); MCH 26.3 pg (26.0-34.0); MCHC 31.7 g/dL (28.0-37.0); MCV 82.9 fL (80.0-100.0); RBC 3.35 mil/uL (4.20-5.00); RDW-CV 35.2 % (10.5-14.5); WBC 5.1 thou/uL (4.0-11.0)
[2019-06-11 06:42] LABS: ALBUMIN 2.7 g/dL (3.4-5.0); CALCIUM 9.7 mg/dL (8.5-10.1); CREATININE 0.6 mg/dL (0.6-1.3); MAGNESIUM 1.7 mg/dL (1.8-2.4); POTASSIUM 4.4 mmol/L (3.5-5.1); TOTAL BILIRUBIN 0.3 mg/dL (<0.1-1.0); TOTAL PROTEIN 6.1 g/dL (6.4-8.2)
[2019-06-11 08:00] VITALS: BP 120/77
[2019-06-11 19:30] VITALS: BP 95/53
[2019-06-11 22:00] VITALS: BP 104/53
[2019-06-12 08:05] VITALS: BP 102/66
[2019-06-12 21:25] VITALS: BP 144/103
[2019-06-13 00:15] VITALS: BP 108/75
[2019-06-13 08:00] VITALS: BP 127/54
[2019-06-13 09:34] LABS: BE 4.8 mmol/L (-2 to +3); PO2 88.9 mmHg (75.0-100.0); pH 7.466 (7.340-7.450)
[2019-06-13 20:45] VITALS: BP 109/44
[2019-06-14 05:02] LABS: MCH 26.4 pg (26.0-34.0); MCV 85.3 fL (80.0-100.0); MPV 9.4 fl. (7.2-11.1); RBC 2.46 mil/uL (4.20-5.00); RDW-CV 35.1 % (10.5-14.5); WBC 4.1 thou/uL (4.0-11.0)
[2019-06-14 05:11] LABS: HEMOGLOBIN 6.5 gm/dL (12.0-15.0)
[2019-06-14 05:18] LABS: CALCIUM 8.8 mg/dL (8.5-10.1); CREATININE 0.6 mg/dL (0.6-1.3); POTASSIUM 4.4 mmol/L (3.5-5.1)
[2019-06-14 07:37] VITALS: BP 126/53
[2019-06-14 11:25] VITALS: BP 101/60; BP 103/51; BP 104/54; BP 118/58
[2019-06-14 18:50] LABS: HEMATOCRIT 24.7 % (37.0-47.0); HEMOGLOBIN 7.9 gm/dL (12.0-15.0)
[2019-06-14 19:54] VITALS: BP 115/90
[2019-06-15 08:00] VITALS: BP 120/76
[2019-06-15 20:00] VITALS: BP 98/64
[2019-06-16 08:00] VITALS: BP 90/52
[2019-06-16 19:30] VITALS: BP 121/76
[2019-06-17 07:51] VITALS: BP 106/78
[2019-06-17 12:18] LABS: WBC 4.3 thou/uL (4.0-11.0)
[2019-06-17 12:20] LABS: HEMATOCRIT 25.5 % (37.0-47.0); HEMOGLOBIN 8.1 gm/dL (12.0-15.0); MCH 28.2 pg (26.0-34.0); MCHC 31.9 g/dL (28.0-37.0); MCV 88.2 fL (80.0-100.0); MPV 9.3 fl. (7.2-11.1); NUCLEATED RBCS 0 /100WBC; PLATELET COUNT* 220 thou/uL (150-400); RBC 2.89 mil/uL (4.20-5.00)
[2019-06-17 12:45] LABS: ABSOLUTE EOSINOPHILS 0.4 thou/uL (0.0-0.7); ABSOLUTE LYMPHOCYTES 0.4 thou/uL (0.8-5.3); ABSOLUTE MONOCYTES 0.3 thou/uL (0.0-1.2); ABSOLUTE NEUTROPHILS 3.2 thou/uL (1.6-8.1); PLATELET ESTIMATE ADEQUATE; SCHISTOCYTES Occasional
[2019-06-17 12:46] LABS: ANISOCYTOSIS 1+; HYPOCHROMASIA 2+; POIKILOCYTOSIS 1+; POLYCHROMASIA Occasional
[2019-06-17 12:51] LABS: ALBUMIN 2.7 g/dL (3.4-5.0); CREATININE 0.7 mg/dL (0.6-1.3); POTASSIUM 4.4 mmol/L (3.5-5.1); TOTAL BILIRUBIN 0.5 mg/dL (<0.1-1.0)
[2019-06-17 19:00] VITALS: BP 100/50
[2019-06-18 07:32] VITALS: BP 104/58
[2019-06-18 21:10] VITALS: BP 125/86
[2019-06-19 08:00] VITALS: BP 125/66
[2019-06-19 19:00] VITALS: BP 100/60
[2019-06-20 08:00] VITALS: BP 82/64
[2019-06-20 09:30] VITALS: BP 102/84
[2019-06-20 20:29] VITALS: BP 102/67
[2019-06-21 04:33] LABS: ABSOLUTE BASOPHILS 0.1 thou/uL (0.0-0.2); ABSOLUTE EOSINOPHILS 0.3 thou/uL (0.0-0.7); ABSOLUTE LYMPHOCYTES 0.9 thou/uL (0.8-5.3); ABSOLUTE MONOCYTES 0.6 thou/uL (0.0-1.2); ABSOLUTE NEUTROPHILS 1.9 thou/uL (1.6-8.1); BASOPHILS 2.3 %; EOSINOPHILS 7.3 %; HEMOGLOBIN 8.1 gm/dL (12.0-15.0); LYMPHOCYTES 23.3 %; MCH 28.5 pg (26.0-34.0); MCHC 32.3 g/dL (28.0-37.0); MCV 88.1 fL (80.0-100.0); MONOCYTES 15.6 %; MPV 9.2 fl. (7.2-11.1); NUCLEATED RBCS 0 /100WBC; PLATELET COUNT* 236 thou/uL (150-400); POLYS 51.5 %; RBC 2.84 mil/uL (4.20-5.00); RDW-CV 29.8 % (10.5-14.5); WBC 3.7 thou/uL (4.0-11.0)
[2019-06-21 04:36] LABS: CALCIUM 8.8 mg/dL (8.5-10.1); CREATININE 0.7 mg/dL (0.6-1.3); POTASSIUM 4.4 mmol/L (3.5-5.1)
[2019-06-21 05:33] LABS: PLATELET ESTIMATE ADEQUATE
[2019-06-21 05:34] LABS: HYPOCHROMASIA 2+; TARGET CELLS 1+
[2019-06-21 05:35] LABS: ANISOCYTOSIS 2+; POIKILOCYTOSIS 1+; POLYCHROMASIA 1+
[2019-06-21 08:17] VITALS: BP 120/58
[2019-06-21 09:30] VITALS: BP 120/58
[2019-06-21 17:23] VITALS: BP 120/58
[2019-06-21 17:43] VITALS: BP 120/58
[2019-06-21 20:27] VITALS: BP 112/73
[2019-06-22 04:56] VITALS: BP 120/58
[2019-06-22] MEDS ORDERED: FLORASTOR250 MG PO (05:06)
[2019-06-22] MEDS ORDERED: DULCOLAX STOOL100 M1 PO (05:12)
[2019-06-22] MEDS ORDERED: MAG-OXIDE400 MG PO (05:19)
[2019-06-22] MEDS ORDERED: PULMICORT0.5 MG/21 INH (05:22)
[2019-06-22] MEDS ORDERED: IPRAT-ALBUT 0.5-3 ML (05:25)
[2019-06-22 08:21] VITALS: BP 102/74
[2019-06-22 08:32] VITALS: BP 104/74
[2019-06-22] MEDS ORDERED: CULTURELLE KID1 EAC1 PO (11:21)
== END 2019-06-22 12:05 | disposition home health service (06) | DRG 70 ==
LOC: M.REH 17:30
PROVIDERS: Family Medicine; Internal Medicine; Specialist; ADMIT Physical Medicine & Rehabilitation
DX: G93.40 Encephalopathy, unspecified (principal); I50.33 Acute on chronic diastolic (congestive) heart failure; A41.9 Sepsis, unspecified organism; J96.21 Acute and chronic respiratory failure with hypoxia; I48.20 Chronic atrial fibrillation, unspecified; N17.9 Acute kidney failure, unspecified; I13.0 Hypertensive heart and chronic kidney disease with heart failure and stage 1 through stage 4 chronic kidney disease, or unspecified chronic kidney disease; K92.2 Gastrointestinal hemorrhage, unspecified; K51.90 Ulcerative colitis, unspecified, without complications; E44.0 Moderate protein-calorie malnutrition; I25.2 Old myocardial infarction; Z86.718 Personal history of other venous thrombosis and embolism; Z79.01 Long term (current) use of anticoagulants; J44.9 Chronic obstructive pulmonary disease, unspecified; Z99.81 Dependence on supplemental oxygen; N18.3 Chronic kidney disease, stage 3 (moderate); Z88.6 Allergy status to analgesic agent; Z88.8 Allergy status to other drugs, medicaments and biological substances; I25.10 Atherosclerotic heart disease of native coronary artery without angina pectoris; E78.5 Hyperlipidemia, unspecified; Z96.642 Presence of left artificial hip joint; M19.90 Unspecified osteoarthritis, unspecified site; Z90.49 Acquired absence of other specified parts of digestive tract; E66.01 Morbid (severe) obesity due to excess calories; Z68.34 Body mass index [BMI] 34.0-34.9, adult; R53.81 Other malaise; D50.9 Iron deficiency anemia, unspecified; K21.9 Gastro-esophageal reflux disease without esophagitis; G47.33 Obstructive sleep apnea (adult) (pediatric); L89.321 Pressure ulcer of left buttock, stage 1

== ENCOUNTER 2019-11-08 02:16 | Inpatient (IN) | payer MEDICARE, BC ==
[2019-11-08] VITALS (25 sets, daily range): BP systolic 70–137; BP diastolic 41–83
[~2019-11-08] VITALS: Ht 165.1 cm; Wt 80.3 kg
[~2019-11-08 02:16] MED LIST changes: +CULTURELLE KID1 EAC1 PO; +DULCOLAX STOOL100 M1 PO; +FLORASTOR250 MG PO; +IPRAT-ALBUT 0.5-3 ML; +MAG-OXIDE400 MG PO; +PULMICORT0.5 MG/21 INH
[2019-11-08 02:38] LABS: BE -6.2 mmol/L (-2 to +3); PCO2 30.7 mmHg (35.0-45.0); pH 7.385 (7.340-7.450)
[2019-11-08 02:43] LABS: PO2 303.6 mmHg (75.0-100.0)
[2019-11-08 02:53] LABS: HEMOGLOBIN 8.4 gm/dL (12.0-15.0); NUCLEATED RBCS 0 /100WBC
[2019-11-08 02:55] LABS: HEMATOCRIT 27.1 % (37.0-47.0); MCH 23.3 pg (26.0-34.0); MCV 74.9 fL (80.0-100.0); MPV 8.5 fl. (7.2-11.1); PLATELET COUNT* 464 thou/uL (150-400); RBC 3.61 mil/uL (4.20-5.00); RDW-CV 18.7 % (10.5-14.5); WBC 9.7 thou/uL (4.0-11.0)
[2019-11-08 02:57] LABS: URINE BILIRUBIN NEGATIVE (Negative); URINE BLOOD NEGATIVE (Negative); URINE CLARITY CLEAR; URINE COLOR YELLOW; URINE GLUCOSE-RANDOM NEGATIVE (Negative); URINE KETONES NEGATIVE (Negative); URINE LEUKOCYTES-REFLEX NEGATIVE (Negative); URINE NITRITE-REFLEX NEGATIVE (Negative); URINE PROTEIN 1+ (Negative); URINE SPECIFIC GRAVITY >= 1.030 (1.005-1.030); URINE UROBILINOGEN 0.2 E.U./dl (0.2-1.0)
[2019-11-08 03:02] LABS: CALCIUM 9.4 mg/dL (8.5-10.1); CREATININE 1.3 mg/dL (0.6-1.3); POTASSIUM 4.4 mmol/L (3.5-5.1)
[2019-11-08 03:08] LABS: INR 1.2; PROTIME 12.7 Seconds (9.20-11.50)
[2019-11-08 03:12] LABS: ALBUMIN 3.6 g/dL (3.4-5.0); MAGNESIUM 2.6 mg/dL (1.8-2.4); TOTAL BILIRUBIN 1.3 mg/dL (<0.1-1.0); TOTAL PROTEIN 8.4 g/dL (6.4-8.2)
[2019-11-08 03:22] LABS: ABSOLUTE EOSINOPHILS 0.1 thou/uL (0.0-0.7); ABSOLUTE LYMPHOCYTES 1.6 thou/uL (0.8-5.3); ABSOLUTE MONOCYTES 0.4 thou/uL (0.0-1.2); ABSOLUTE NEUTROPHILS 7.6 thou/uL (1.6-8.1)
[2019-11-08 03:23] LABS: ANISOCYTOSIS 1+; HYPOCHROMASIA 1+; OVALOCYTES 1+; PLATELET ESTIMATE INCREASED; POLYCHROMASIA 1+; TARGET CELLS Occasional; TEARDROPS 1+
--- NOTE | 2019-11-08 03:48 | NUR ---
PATIENT EXTREMLEY RESTLESS AND PULLING AT HER BIPAP AND OLIVAS CATHETER. DR HONEYCUTT IS AT BEDSIDE AND ORDERDED SOFT WRIST RESTRAINTS.
--- NOTE | 2019-11-08 05:15 | NUR ---
PATIENT RETURNED TO ED FROM CT SCAN PATIENTS ARM RESTRAINTS REMOVED. DR HONEYCUTT NOTIFIED.
--- NOTE | 2019-11-08 06:51 | NUR ---
DR HONEYCUTT PLACED CENTRAIL LINE LEFT INTERNAL JUGULAR.
--- NOTE | 2019-11-08 10:51 | EKG ---
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: [facility] : 1945 Requested By: Aaliyah Metzger Order Number: [id number] MD: Reginald Montemayor Measurements Intervals [place] Rate: 128 P: ND: QRS: 11 QRSD: 86 T: -7 QT: 336 QTc: 491 Interpretive Statements Atrial fibrillation with rapid response Low voltage, extremity and precordial leads Baseline wander in lead(s) I,II,III,aVL,aVF,V1,V2,V3,V4,V5,V6 Compared to ECG 05/26/2019 11:03:56 rate has increased Ventricular premature complex(es) no longer present Electronically Signed On 11-08-2019 10:51:27 CDT by Reginald Montemayor [email or web address] <ELECTRONICALLY SIGNED> By: Reginald Montemayor MD, [facility] 11/08/19 1051 4 4 Reginald Montemayor MD, [facility] /EPI
[2019-11-08 15:01] LABS: BE -1.2 mmol/L (-2 to +3); PCO2 35.5 mmHg (35.0-45.0); PO2 87.7 mmHg (75.0-100.0); pH 7.428 (7.340-7.450)
[2019-11-08 16:18] LABS: CALCIUM 8.9 mg/dL (8.5-10.1); CREATININE 1.3 mg/dL (0.6-1.3); MAGNESIUM 2.3 mg/dL (1.8-2.4)
[2019-11-08 16:19] LABS: POTASSIUM 3.4 mmol/L (3.5-5.1)
--- NOTE | 2019-11-08 19:48 | CON ---
[address] [address] CONSULTATION Name: JAYLENE TOVAR Abdi Room: [address] IN M.R.#: [id number] Admission: 11/08/19 Attend Phys: Eliel Christianson MD Discharge: Date of : 43 Report #: [id number] THIS REPORT FOR: //name// cc: Dolly Zepeda MD, Tuongvan T. MD ~ THIS REPORT FOR: //name// CC: Eliel Zepeda DATE OF SERVICE: 11/08/2019 CONSULT REQUESTED BY: Eliel Christianson MD INDICATION FOR CONSULTATION: [id number]-mh-[id number] hypoxemic respiratory failure. HISTORY OF PRESENT ILLNESS: A 73-year-old female with past medical history includes a history of COPD. 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 The patient does have a history of obstructive sleep apnea as well, has been prescribed positive airway pressure therapy at home in the past and it is unknown as to whether the patient is currently using this. Further, the patient has had C. difficile colitis recently in June and does have chronic anemia as well and has a history of cardiac disease including atrial fibrillation. The patient did have an IVC filter in the past and has not been on anticoagulation despite having a history of DVT considering significant anemia. The patient is now here with acute shortness of breath. The patient is unable to provide a detailed history. She is not known to be short of breath before yesterday. She is reported; however, had dementia and may not have been able to communicate complaints in detail. She subsequently is reported to have tripped and slid out of bed. The patient was brought to the Emergency Room, was agitated, confused and in respiratory distress, was placed on a BiPAP and was unable to tolerate BiPAP and did receive Ativan for agitation. Her mental status as well as respiratory status worsened during the night and therefore she eventually was endotracheally intubated. The patient currently is on the ventilator. She is oxygenating and ventilating adequately. She is on 40% FiO2 with 5 of PEEP. She does have propofol running at 20. She still does appear to be somewhat agitated. She is in a controlled atrial fibrillation rhythm and is on a diltiazem infusion. Atrial fibrillation is chronic. Blood pressure is on the lower side at 98/62, but she is not on any pressors. The patient is unable to provide a further history or review of systems. The patient is not febrile at this time. Her preliminary COVID test was negative [place] [address] CONSULTATION Name: JAYLENE TOVAR Room: [address] IN ..#: [id number] Admission: 11/08/19 Attend Phys: Eliel Christianson MD Discharge: Date of : 43 Report #: [id number] PAST MEDICAL HISTORY: COPD, on oxygen long-term, obstructive sleep apnea, has been recommended a positive airway pressure device at home, not known to me as to whether the patient currently is using it, DVT, at one point she had an IVC filter placed. She has not been on anticoagulation due to anemia, unknown as to whether the IVC filter is still present or was removed at some point, coronary artery disease, has had coronary artery stents in the past, atrial fibrillation, chronic, C. difficile colitis in 06/2019 which is fairly recent, stroke, hip replacement on the left side in 2011, gastroesophageal reflux disease. The patient's last echocardiogram is from May of this year and shows left ventricular ejection fraction of 60-65%. There is no significant elevation in right heart pressures. There are no major valvular lesions. SOCIAL HISTORY: She is reported to have had an extensive history of smoking in the past, discontinued now, unable to quantify exactly. There is no known history of heavy alcohol use or illegal drug use. CURRENT MEDICATIONS: List in EDAN reviewed. HOME MEDICATIONS: List also in EDAN reviewed. FAMILY HISTORY: There is no pertinent family history known at this time. PHYSICAL EXAMINATION: GENERAL: The patient was on a propofol infusion at 20, was responding only to painful stimuli what, but still appear to be restless. VITAL SIGNS: She is in a controlled atrial fibrillation with the heart rate this morning between 80 and 97. She has a diltiazem infusion running at 10. Blood pressure was 98/62, respiratory rate was around 22 at the time of my examination and it has been started in the teens mostly in the records. She is oxygenating 96% and she is afebrile with the temperature of 36.0. She is on 40% FiO2, she is on 5 of PEEP. She is on assist control mode of ventilation. Her ventilator settings are reviewed. Her body mass index is elevated to 32. HEENT: Head is normocephalic and atraumatic. Endotracheal tube is in good position. There is an OG in place as well. NECK: Does not show raised JVP, asymmetry, mass or lymph nodes. CHEST: Symmetrical expansion on inspection and palpation. On auscultation, breath sounds are bilaterally equal, but diminished. I do not hear any added sounds. HEART: Irregular, no murmur. Rate controlled atrial fibrillation. ABDOMEN: Soft and nontender. EXTREMITIES: Lower extremities show no edema, no calf tenderness. SKIN: Dry and intact. NEUROLOGICAL: She is moving all extremities bilaterally equally and spontaneously. There is no focal deficit identified. Note that the patient is reported to have had a stroke with right-sided weakness in the past, which may not be obvious due [place] [address] CONSULTATION Name: JAYLENE TOVAR Room: [address] IN [facility].#: [id number] Admission: 11/08/19 Attend Phys: Eliel Christianson MD Discharge: Date of : 43 Report #: [id number] DIAGNOSTIC DATA: The patient's CT chest as well as x-rays done overnight are reviewed. In summary, there are patchy ground-glass opacity/infiltrates bilaterally. These do appear to be new compared with the patient's previous imaging. I am not able to identify the IVC filter on x-ray of the abdomen, which was done for OG placement; however, this does not imaged the lower part of the abdomen. LABORATORY DATA: The patient's CBC as well [facility]ist[facility]. This was reviewed. Note that the patient's creatinine is 1.3. The patient's baseline creatinine is 0.9. The patient's hemoglobin is 8.4, which is not significantly different from her baseline hemoglobin. The patient's arterial blood gas done last night on BiPAP is indicative of wkndm-ep-jolidhu type 1 hypoxemic respiratory failure. The patient's COVID initial screen is negative and final is pending. Urinalysis and coagulation studies are in [facility]. These are reviewed. D-dimer is elevated, this is noted. ASSESSMENT AND PLAN: 1. Vosgh-jd-ixhwciu hypoxemic respiratory failure. The patient does have some interstitial infiltrates/ground-glass opacities on her x-rays and CT. There is likely some atelectasis present as well. These interstitial opacities could be caused by mild increase in pulmonary vascular congestion. Alternately, atypical or viral pneumonia such as secondary to COVID-19 can also lead to this picture. At this time, continue current ventilator settings. We will go ahead and obtain arterial blood gas and then we will adjust ventilator accordingly. The patient currently is on propofol. Blood pressure is on the lower side. I therefore went ahead and started a fentanyl infusion. We may be able to titrate down propofol as a result. If additional sedation is needed, we will use p.r.n. Versed. 2. Interstitial infiltrates/ground-glass opacities. I recommended placing the patient in enhanced isolation until COVID-19 final report is back. The patient is currently already on Zosyn considering her history of C. difficile colitis. I did not broaden antibiotics to add atypical coverage at this time; however, I would have a low threshold of adding atypical coverage should her condition worsen. Urine for legionella as well as pneumococcal antigens are sent. I will order urine for legionella antigen as well as pneumococcal antigen. In addition, we will order a nasal MRSA screen and a sputum culture. 3. Chronic obstructive pulmonary disease exacerbation. Solu-Medrol and DuoNebs. 4. Mild renal insufficiency. The patient currently is on Lasix. Creatinine is above her baseline. We will watch her blood pressure as well as creatinine closely. If there is further increase in creatinine, then I would perhaps be inclined to hold Lasix considering that at this time, she is ventilating and oxygenating adequately. 5. Chronic atrial fibrillation. The Cardiology service is on the case. 6. History of deep venous thrombosis. The patient appears to be high risk for contrast nephropathy; therefore, I did not order a CTA chest [place] [address] CONSULTATION Name: JAYLENE TOVAR Room: [address]#: [id number] Admission: 11/08/19 Attend Phys: Eliel Christianson MD Discharge: Date of : 43 Report #: [id number] that the patient has not previously been on anticoagulation due to anemia. I will go ahead and obtain venous Dopplers. I will also go ahead and obtain an x-ray of the pelvis and assess as to whether the inferior vena cava filter still present. May also consider obtaining an echocardiogram to look at the right heart pressures. 7. History of Clostridium difficile colitis. The patient is on oral vancomycin. She is also on Florastor. The order for oral vancomycin is visible under orders in EDAN and I did verify with the pharmacy that she is on oral vancomycin. The same order is not visible under review. 8. Gastroesophageal reflux disease, proton pump inhibitor. 9. Hyperglycemia, insulin sliding scale. 10. Deep venous thrombosis prophylaxis. Note that the patient is currently on Lovenox and the prophylactic dose and has previously not been on full anticoagulation due to anemia as above. The patient is critically ill at this time. Total time spent providing critical care to this patient today exceeds 50 minutes. <ELECTRONICALLY SIGNED> By: Justus Bocanegra MD 11/08/19 1948 [id number] [id number] Bocanegra MD /nt
[2019-11-09] VITALS (39 sets, daily range): BP systolic 90–161; BP diastolic 43–98
[2019-11-09 06:23] LABS: HEMOGLOBIN 7.6 gm/dL (12.0-15.0); NUCLEATED RBCS 0 /100WBC; RDW-CV 18.3 % (10.5-14.5)
[2019-11-09 06:25] LABS: HEMATOCRIT 24.4 % (37.0-47.0); MCH 22.5 pg (26.0-34.0); MCHC 31.3 g/dL (28.0-37.0); MPV 8.4 fl. (7.2-11.1); RBC 3.39 mil/uL (4.20-5.00); WBC 10.2 thou/uL (4.0-11.0)
[2019-11-09 06:30] LABS: ALBUMIN 3.2 g/dL (3.4-5.0); CALCIUM 9.1 mg/dL (8.5-10.1); CREATININE 1.3 mg/dL (0.6-1.3); TOTAL BILIRUBIN 1.1 mg/dL (<0.1-1.0); TOTAL PROTEIN 7.6 g/dL (6.4-8.2)
[2019-11-09 06:31] LABS: PHOSPHORUS* 4.8 mg/dL (2.5-4.9)
[2019-11-09 06:33] LABS: POTASSIUM 2.9 mmol/L (3.5-5.1)
[2019-11-09 06:49] LABS: PLATELET COUNT* 330 thou/uL (150-400)
--- NOTE | 2019-11-09 06:59 | NUR ---
VITALS STABLE, AFEBRILE. PT COMFORTABLE ON 50 MCGS/HR FENTANYL. REMAINS RESTRAINED. UOP 2000CC, NO BM. POTASSIUM REPLACEMENT STARTED PER PROTOCOL THIS AM. Q2 TURNS FOR SKIN INTEGRITY. WILL CONTINUE MONITORING. PT REMAINS IN ISOLATION.
[2019-11-09 07:25] LABS: ABSOLUTE LYMPHOCYTES 0.4 thou/uL (0.8-5.3); ABSOLUTE MONOCYTES 0.4 thou/uL (0.0-1.2); ABSOLUTE NEUTROPHILS 9.4 thou/uL (1.6-8.1); ANISOCYTOSIS 1+; HYPOCHROMASIA 2+; MICROCYTES 1+; PLATELET ESTIMATE ADEQUATE
[2019-11-09 07:26] LABS: LARGE PLATELETS OCCASIONAL
[2019-11-09 07:35] LABS: BE 3.3 mmol/L (-2 to +3); PCO2 35.2 mmHg (35.0-45.0); PO2 109.5 mmHg (75.0-100.0); pH 7.496 (7.340-7.450)
--- NOTE | 2019-11-09 09:08 | NUR ---
8023 ASSUMED CARE OF PATIENT. PLEASE SEE DOCUMENTED ASSESSMENT
[2019-11-09 12:55] LABS: BE 0 mmol/L (-2 to +3); PCO2 29.8 mmHg (35.0-45.0); PO2 92.7 mmHg (75.0-100.0)
--- NOTE | 2019-11-09 14:32 | CON ---
[address] [address] CONSULTATION Name: JAYLENE TOVAR Abdi Room: [address] IN M.R.#: [id number] Admission: 11/08/19 Attend Phys: Eliel Christianson MD Discharge: Date of : 43 Report #: [id number] THIS REPORT FOR: //name// cc: Dolly Zepeda MD, Tuongvan T. MD ~ THIS REPORT FOR: //name// CC: Eliel Zepeda DATE OF SERVICE: 11/08/2019 CARDIOLOGY CONSULTATION HISTORY OF PRESENT ILLNESS: The patient is a 73-year-old white female who I was asked to see in the hospital today after she was noted to be in atrial fibrillation. The history is obtained from the current chart as well as some old records. The patient is currently intubated. There are no family members available. The patient has had several hospitalizations here at [facility]. She was admitted here in 04/2004 with unstable angina. Her troponin was elevated consistent with a non-STEMI. She was then transferred to [facility] for intervention. She was admitted here in 2010 and apparently had fasciitis of her left thigh. She developed atrial fibrillation. She was seen by Dr. Anup Garcia at that time. She apparently had a heart catheterization at [place] in 2003 that showed only nonocclusive atherosclerosis disease. No significant stenosis. She required no stent. She has had serial stress test since that time. She was admitted here in 2014 after she fell. She required shoulder surgery. Of note is that postoperatively, she developed confusion. She was noted to be anemic. She was admitted here in 2015 with a kidney stone. She again was noted to be confused. She was admitted here in 2016 with colitis. She apparently had mild elevation of troponin at that time. She had recurrent atrial fibrillation in 11/2018 and underwent cardioversion by Dr. Garcia. It was unsuccessful and she remained in atrial fibrillation. The patient was admitted here in May of this year and had a prolonged hospital stay. She again had atrial fibrillation, chronic kidney disease and again became confused. She was found to have evidence of sleep apnea. She was eventually discharged after a prolonged hospitalization. She was brought to the Emergency Room last night by ambulance. She apparently fell out of bed and became short of breath. Her states that the patient was confused. She had been calling for her mother who had been for 20 years. She had been weak and fell to the ground. She was agitated. According to the , she has been taken off of anticoagulation recently at [facility]. She does have a previous history of a CVA. She has a CPAP for sleep apnea. There is no history of diabetes or hypertension. PAST MEDICAL HISTORY: She has had hip replacement, [place] [address] CONSULTATION Name: JAYLENE TOVAR Room: [address] IN ..#: [id number] Admission: 11/08/19 Attend Phys: Eliel Christianson MD Discharge: Date of : 43 Report #: [id number] CURRENT MEDICATIONS: Include metoprolol 50 mg twice a day, Neurontin, and Pulmicort. ALLERGIES: Include CODEINE. SOCIAL HISTORY: Previous history of smoking. REVIEW OF SYSTEMS: She has apparently had a previous stroke before. She has COPD. No liver disease. She has chronic kidney disease. No cancer. No psychiatric illness. PHYSICAL EXAMINATION: GENERAL: Revealed an elderly female lying in bed. She is on the ventilator. VITAL SIGNS: Blood pressure 130/70, pulse is 80 and irregular. HEENT: She is anicteric. Mucous membranes are moist. CHEST: Revealed decreased breath sounds bilaterally. CARDIOVASCULAR: Irregular tachycardia. Grade 2 systolic ejection murmur. ABDOMEN: Soft. EXTREMITIES: Had no edema. SKIN: Cool and dry. NEUROLOGIC: She is unresponsive. She is on sedation at this time. IMAGING: Her ECG shows atrial fibrillation with controlled response. Her workup, she had an echocardiogram in May of this year that showed an ejection fraction of 60% with biatrial enlargement, aortic sclerosis. She actually had a nuclear stress test in 2017 that showed an ejection fraction of 73% with normal perfusion, suggesting no ischemia. She had a portable chest x-ray this morning that showed endotracheal tube in appropriate position. There was mild vascular congestion noted. She had a previous CT scan of the head because of confusion that showed no acute abnormality. LABORATORY DATA: Last night, sodium 135, potassium 4.4, BUN 30, creatinine 1.3. Her liver function studies were normal. Troponin 0.06. BNP 8890. White blood cell count 9.7, hemoglobin 8.4; it was 7.8 in May. IMPRESSION AND RECOMMENDATIONS: 1. Acute on chronic diastolic heart failure. Recommend Lasix. 2. Anemia. No history of bleeding. 3. Atrial fibrillation. Rate controlled with beta-delphine. I would not recommend anticoagulation at this time because of anemia. 4. Confusion. <ELECTRONICALLY SIGNED> By: Reginald Montemayor MD, [facility] 11/09/19 1432 [id number] [id number] Constanza Montemayor MD, FACC /nt
--- NOTE | 2019-11-09 14:55 | NUR ---
7608 PATIENT SELF EXTUBATED WITH RESTRAINTS ON. PT HAD COMPLETED VENT WEANING TRIAL AND ABG. DR URIBE NOTIFIED. RESTRAINTS OFF. FENTANYL DRIP STOPPED.
--- NOTE | 2019-11-09 14:55 | NUR ---
1100 PATIENT WITH PRONOUNCED WEAKNESS ON LEFT SIDE. ORDERS NOTED.
--- NOTE | 2019-11-09 14:56 | NUR ---
[address] PER BED WITH RN.
--- NOTE | 2019-11-09 17:26 | NUR ---
PATIENT HAS MADE SOME PROGRESS TODAY. PATIENT HAD TRIALED OFF OF VENT BUT WAS ABLE TO SELF EXTUBATE WITH RESTRAINTS ON.NOW ON OXYGEN AT 3-4LPM. PT HAD CTA OF BRAIN WITH EVIDENCE OF INFARCT. STARTED ON HEPARIN DRIP. POTASSIUM REPLACED. REMAINS IN ATRAIL FIBRILLATION. SPOUSE UPDATED.
--- NOTE | 2019-11-09 22:16 | NUR ---
INITAL ASSESMENT COMPLETED AT 1930. PT RESTLESS AND CONFUSED PULLING OFF O2 AND MONITOR LEADS. AT 2099 PT PULLED OFF O2, MONITOR LEADS AND ATTEMPTING TO PULL OUT CENTRAL LINE. PAGED DR FUNES AND RECIEVED ORDER FOR SOFT WRIST RESTRAINT TO MAINTAIN CENTRAL LINE AND MONITORING EQUIPMENT.
--- NOTE | 2019-11-09 22:40 | NUR ---
SPOKE WITH PT'S TO INFORM HIM REGARDING NEED FOR SOFT RESTRAINT TO MAINTAIN CENTRAL LINE AND MONITORING EQUIPMENT.
[2019-11-10] VITALS (38 sets, daily range): BP systolic 103–185; BP diastolic 51–103
--- NOTE | 2019-11-10 01:48 | NUR ---
PT GIVEN PRN HYDRALAZINE FOR BP 185/84.
[2019-11-10 03:55] LABS: HEMATOCRIT 29.2 % (37.0-47.0); HEMOGLOBIN 8.8 gm/dL (12.0-15.0)
[2019-11-10 04:05] LABS: CALCIUM 9.8 mg/dL (8.5-10.1); CREATININE 1.3 mg/dL (0.6-1.3); POTASSIUM 3.4 mmol/L (3.5-5.1)
--- NOTE | 2019-11-10 05:54 | NUR ---
PT PROGRESSING TOWARD GOALS. PT MAINTAIN O2 SAT >94% ON 5 LITERS HIGH FLOW. VITAL SIGNS WITHIN NORMAL LIMITS. PT CONTINUES TO HAVE LEFT SIDED WEAKNESS. PT MAINTAINED IN SOFT WRIST RESTRAINT TO MAINTAIN CENTRAL LINE AND MONITORING EQUIPMENT. NO ACUTE CHANGES DURING SHIFT, WILL CONTINIE TO MONITOR.
--- NOTE | 2019-11-10 20:02 | NUR ---
I ASSUMED CARE OF THE PATIENT AT 0700. SHE IS ONLY ALERT TO PERSON AND HOSPITAL. BED IS IN THE LOW LOCKED POSITION AND CALL LIGHT IS IN REACH. HOURLY ROUNDING IS COMPLETED AND PATIENT NEEDS ARE MET. PAIN IS DENIED. CALLED AND IS WONDERING IS SHE WILL GET A PACEMAKER THIS STAY ([facility]MAN). PATIENT IS REPOSITIONED EVERY 2 HOURS. RIGHT ARM IS IN SOFT RESTRAINT WITH PROTOCOL FOLLOWED. NPO STATUS IS MAINTAINED. NG TUBE WAS PLACED AND PATIENT PULLED ON IT BEFORE XRAY WAS COMPLETED. LINE WAS ADVANCED AND PLACEMENT WAS VERIFIED. PATIENT D/C'D HER NG TUBE BEFORE THE TUBE FEED ARRIVED. SHE IS COUGHING UP BLOOD TINGED MUCOUS. PHYSICIAN IS NOTIFIED AND PTT WAS REDRAWN. CRITICAL RESULTS WERE CALLED TO PHYSICIAN AND HEPARIN WAS STOPPED. COVID IS STILL PENDING. OLIVAS IS IN PLACE. BLOOD PRESSURE SLOWLY CREEPED UP DURING SHIFT AND NIGHTS WILL CONTINUE TO FOLLOW. BLOOD SUGAR IS MONITORED THROUGHOUT SHIFT. POTASSIUM WAS REPLACED.
[2019-11-10 20:10] LABS: HEMATOCRIT 31.7 % (37.0-47.0); HEMOGLOBIN 9.7 gm/dL (12.0-15.0)
--- NOTE | 2019-11-10 20:24 | NUR ---
PATIENT D/C'D HER OWN NG TUBE. AFTER SPITTING UP BLOOD, NG WAS NOT RE-INSERTED AND NEW ORDERS WERE OBTAINED.
[2019-11-11] VITALS (45 sets, daily range): BP systolic 88–150; BP diastolic 49–95
[2019-11-11 03:09] LABS: HEMATOCRIT 32.3 % (37.0-47.0); HEMOGLOBIN 10.1 gm/dL (12.0-15.0)
[2019-11-11 03:33] LABS: CREATININE 1.2 mg/dL (0.6-1.3); POTASSIUM 3.1 mmol/L (3.5-5.1)
--- NOTE | 2019-11-11 12:24 | NUR ---
ICU rounds: Pt self extubated on Monday. Confused. Right hand restraint, flaccid on left side. Per ST, ice chips only. Central line. [place]. Hep gtt. CM spoke with at bedside. Pt resides at home with him. Wears home o2 and has a cpap through [employer]. Per , Pt has not being using her cpap. Pt also has a neb. Pt has a power scooter, walker and cane. Hx of [facility]. No hx of SNF. Hx of ARU. Discussed dispo, is ok with Pt going to ARU at dc, prefers that Pt not go to skilled, would rather her return home at dc, if Pt does not qualify for ARU. Therapies to eval and make recommendations. Following.
--- NOTE | 2019-11-11 12:35 | NUR ---
per dr eason have ir put in NG due to heparin gtt fo feeding ect if swallowe is failed. per speech can have ice chips but not cognitive aware to eat food re try in th am per dr tello wait on ng tube until tomorrow after re wade
[2019-11-11 14:42] LABS: CHOLESTEROL 124 mg/dL (<200); HDL CHOLESTEROL 51 mg/dL (>40); LDL CHOLESTEROL 60 mg/dL (<100); SERUM ASSESSMENT Clear; TC:HDL 2.4 Ratio (Not establshd); TRIGLYCERIDE 69 mg/dL (<150); VLDL 14 mg/dL (<40)
[2019-11-11 22:18] LABS: CREATININE 1.2 mg/dL (0.6-1.3); POTASSIUM 3.7 mmol/L (3.5-5.1)
[2019-11-12] VITALS (32 sets, daily range): BP systolic 93–150; BP diastolic 53–108
[2019-11-12 05:25] LABS: HEMATOCRIT 32.7 % (37.0-47.0)
[2019-11-12 10:13] LABS: HEMATOCRIT 33.8 % (37.0-47.0); HEMOGLOBIN 10.2 gm/dL (12.0-15.0); MCV 73.3 fL (80.0-100.0); MPV 9.1 fl. (7.2-11.1); NUCLEATED RBCS 1 /100WBC; PLATELET COUNT* 291 thou/uL (150-400); RBC 4.61 mil/uL (4.20-5.00); RDW-CV 18.9 % (10.5-14.5); WBC 10.7 thou/uL (4.0-11.0)
[2019-11-12 10:17] LABS: CALCIUM 9.8 mg/dL (8.5-10.1); CREATININE 1.2 mg/dL (0.6-1.3); POTASSIUM 3.5 mmol/L (3.5-5.1)
--- NOTE | 2019-11-12 10:32 | NUR ---
VETERINARY TECHNICIAN INSTRUCTOR NOTE: MET WITH SPOUSE AND PATIENT TODAY. PATIENT DROWSY, WAS MORE ACTIVE EARLIER. DISCUSSED STROKE PROGRAM SPOUSE. ANSWERED QUESTIONS. WILL CONTINUE TO FOLLOW.
[2019-11-12 11:07] LABS: ABSOLUTE LYMPHOCYTES 0.1 thou/uL (0.8-5.3); ABSOLUTE MONOCYTES 0.1 thou/uL (0.0-1.2); ABSOLUTE NEUTROPHILS 10.5 thou/uL (1.6-8.1); PLATELET ESTIMATE ADEQUATE
--- NOTE | 2019-11-12 15:57 | NUR ---
ICU rounds: Updated diet. Rehab consult. Tele status
--- NOTE | 2019-11-12 18:40 | NUR ---
PT TRANSFERED TO ROOM 208 ALL BELONGINGS PACKED AND SENT WITH PT TRANSFERED BY BED VIA NURSING STAFF
[2019-11-12 18:46] LABS: CALCIUM 9.6 mg/dL (8.5-10.1); CREATININE 1.2 mg/dL (0.6-1.3); MAGNESIUM 2.5 mg/dL (1.8-2.4); POTASSIUM 3.7 mmol/L (3.5-5.1)
--- NOTE | 2019-11-12 19:07 | NUR ---
PT TRANSFERRED FROM ICU IN STABLE CONDITION
[2019-11-13] VITALS: BP 150/56
--- NOTE | 2019-11-13 02:10 | NUR ---
PT ALERT ORIENTED. BED REST TURN Q 2 HRS. OLIVAS WITH DK YELLOW. INCONTINENT OF STOOL. TELEMETRY SHOWS AFIB. HR IN THE 70S-80S. POTASIUM, IV DIGOXIN AND PO VANCOMYCIN ORDERED. DR FUNES NOTIFIED TO FIND OUT WHY. ORDER TO HOLD ABOVE.
[2019-11-13 03:54] VITALS: BP 146/52
[2019-11-13 05:37] LABS: HEMATOCRIT 31.5 % (37.0-47.0)
[2019-11-13 05:38] LABS: HEMOGLOBIN 9.4 gm/dL (12.0-15.0); MCH 22.4 pg (26.0-34.0); MCHC 29.9 g/dL (28.0-37.0); MCV 75.1 fL (80.0-100.0); NUCLEATED RBCS 1 /100WBC; PLATELET COUNT* 226 thou/uL (150-400); RBC 4.19 mil/uL (4.20-5.00); WBC 9.9 thou/uL (4.0-11.0)
[2019-11-13 05:54] LABS: ALBUMIN 2.8 g/dL (3.4-5.0); CALCIUM 9.5 mg/dL (8.5-10.1); MAGNESIUM 2.5 mg/dL (1.8-2.4); POTASSIUM 3.4 mmol/L (3.5-5.1); TOTAL BILIRUBIN 1.1 mg/dL (<0.1-1.0); TOTAL PROTEIN 6.9 g/dL (6.4-8.2)
[2019-11-13 07:17] LABS: ABSOLUTE LYMPHOCYTES 0.6 thou/uL (0.8-5.3); ABSOLUTE MONOCYTES 0.3 thou/uL (0.0-1.2); HYPOCHROMASIA 2+; MICROCYTES 1+; PLATELET ESTIMATE ADEQUATE
[2019-11-13 07:18] LABS: ANISOCYTOSIS 1+; OVALOCYTES 1+; POIKILOCYTOSIS 1+; TARGET CELLS Occasional
[2019-11-13 08:00] VITALS: BP 95/55
[2019-11-13 11:57] VITALS: BP 132/46
[2019-11-13 12:13] LABS: CALCIUM 9.2 mg/dL (8.5-10.1); CREATININE 1.1 mg/dL (0.6-1.3); POTASSIUM 3.4 mmol/L (3.5-5.1)
--- NOTE | 2019-11-13 14:13 | 2DMMODE ---
[place] [address] 2 D/M-MODE ECHOCARDIOGRAM Name: JAYLENE TOVAR Room: [address] IN [facility].#: [id number] Admission: 11/08/19 Attend Phys: Eliel Christianson, Discharge: Date of : 43 Date of Service: 11/13/19 1412 Report #: [id number] THIS REPORT FOR: cc: Dolly Zepeda MD, Tuongvan T. MD Blick, David R. MD [facility] ~ APPROVED REPORT Study performed: 11/13/2019 11:47:08 EXAM: Comprehensive 2D, Doppler, and color-flow Echocardiogram Patient Location: In-Patient Room #: [facility] Status: routine BSA: 1.85 HR: 80 bpm BP: 146/52 mmHg Rhythm: Atrial Fibrillation Other Information Study Quality: Good Indications CVA/TIA Echo Enhancing Agent Indication: Rule out Shunt Agent(s) / Amount(s) Used: Agitated Saline 10 cc 2D Dimensions IVSd: 12.32 (7-11mm) LVOT Diam: 20.28 (18-24mm) LVDd: 38.30 mm PWd: 11.44 (7-11mm) Ascending Ao: 31.27 (22-36mm) LVDs: 18.45 (25-40mm) Aortic Root: 29.50 mm Volumes Left Atrial Volume (Systole) LA ESV Index: 60.00 mL/m2 Aortic Valve AoV Peak Pawel.: 3.04 m/s AO Peak Gr.: 36.90 mmHg LVOT Max P.46 mmHg AO Mean Gr.: 22.61 mmHg LVOT Mean P.10 [place] [address] 2 D/M-MODE ECHOCARDIOGRAM Name: JAYLENE TOVAR Room: [address] IN ..#: [id number] Admission: 11/08/19 Attend Phys: Eliel Christianson, Discharge: Date of : 43 Date of Service: 11/13/19 1412 Report #: [id number] LVOT Max V: 1.27 m/s AO V2 VTI: 53.70 cm LVOT Mean V: 0.80 m/s ANNEMARIE (VTI): 1.26 cm2 LVOT V1 VTI: 21.02 cm TDI Lateral E' Pawel.: 0.10 m/s Pulmonary Valve PV Peak Pawel.: 1.30 m/s PV Peak Gr.: 6.71 mmHg Tricuspid Valve RAP Estimate: 5.00 mmHg TR Peak Gr.: 29.71 mmHg RVSP: 34.00 mmHg PA Pressure: 34.00 mmHg Left Ventricle The left ventricle is normal size. There is normal LV segmental wall motion. Mild concentric left ventricular hypertrophy. Left ventricular systolic function is normal. The left ventricular ejection fraction is within the normal range. LVEF is 65-70%. This study is not technically sufficient to allow evaluation of the LV diastolic function due to atrial fibrillation. Right Ventricle The right ventricle is normal size. The right ventricular systolic function is normal. Atria Left atrium is severely dilated. The interatrial septum is intact with no evidence for an atrial septal defect. The right atrium size is normal. Aortic Valve Aortic valve is calcified. No aortic regurgitation is present. Moderate aortic stenosis. Mitral Valve The mitral valve is normal in structure. mild mitral regurgitation. No evidence of mitral valve stenosis. Tricuspid Valve The tricuspid valve is normal in structure. Trace tricuspid regurgitation. estimated pa pressure 40 mm Hg Pulmonic Valve The pulmonary valve is normal [place] [address] 2 D/M-MODE ECHOCARDIOGRAM Name: JAYLENE TOVAR Room: [address] IN [facility]#: [id number] Admission: 11/08/19 Attend Phys: Eliel Christianson, Discharge: Date of : 43 Date of Service: 11/13/19 1412 Report #: [id number] regurgitation. Great Vessels The aortic root is normal in size. IVC is normal in size and collapses >50% with inspiration. Pericardium There is no pericardial effusion. <Conclusion> Mild concentric left ventricular hypertrophy. LVEF is 65-70%. Left atrium is severely dilated. Moderate aortic stenosis. mild mitral regurgitation. The interatrial septum is intact with no evidence for an atrial septal defect. Trace tricuspid regurgitation. estimated pa pressure 40 mm Hg <ELECTRONICALLY SIGNED> By: Reginald Montemayor MD, [facility] 11/13/19 [phone] 11 Reginald Montemayor MD, FACC /INF
--- NOTE | 2019-11-13 14:32 | NUR ---
Per , rehab consult pending. Dr Blackburn to eval today. Pt continues to be encephalopathic. OT to see today. Anticipate that Pt will be medically stable to dc on Monday.
[2019-11-13 17:16] VITALS: BP 140/61
[2019-11-13 17:39] LABS: CALCIUM 8.9 mg/dL (8.5-10.1); POTASSIUM 3.5 mmol/L (3.5-5.1)
--- NOTE | 2019-11-13 17:48 | CON ---
[address] [address] CONSULTATION Name: GARRICKHERBERTJAYLENE Abdi Room: [address] IN M.R.#: [id number] Admission: 11/08/19 Attend Phys: Eliel Christianson MD Discharge: Date of : 43 Report #: [id number] THIS REPORT FOR: //name// cc: Dolly Zepeda MD, Tuongvan T. MD ~ THIS REPORT FOR: //name// CC: Eliel Zepeda INFECTIOUS DISEASE CONSULTATION ATTENDING PHYSICIAN: Dr. Sammy MD REASON FOR EVALUATION: Evaluation for positive blood cultures, 2 separate occasions, although 1 out of 2 with coagulase negative staph. The patient has had previous stroke with left-sided deficits. HISTORY OF PRESENT ILLNESS: Chart reviewed, patient examined. This is a 73-year-old well known to myself dating back several years, has a history of hypertension and complicated by vasculopathy more recently, previous stroke with right-sided hemiplegia throughout the course of the hospitalization did require intubation and mechanical ventilatory support. She was eventually weaned off. At initial evaluation, blood cultures were collected, 1 out 2 with growth of gram-positive cocci noted to be coag-negative Staphylococcus. I do not identify the subspecies due to positive nature of it, she had repeat blood cultures again 1 out 2 positive for the Staph hominis, it is not apparent that she has had significant fevers. She denies significant amount of pain at this point. She is quite lethargic, although she is seemingly tracking fairly well. Denies any pulmonary-related complaints. She is on chronic supplemental oxygen 3 liters, which currently she is receiving. Denies any significant gastrointestinal-related complaints. She has been placed on a soft diet and her appetite is improved. Recent history of C. diff colitis earlier this year, although she is not having any significant diarrhea. She had received a course of piperacillin and tazobactam for suspected pneumonitis. She has been on oral vancomycin as well. ALLERGIES: CODEINE. CURRENT MEDICATIONS: Include vancomycin p.o., tentatively vancomycin IV; methylprednisolone; aspirin; digoxin; saccharomyces; gabapentin; pantoprazole; risperidone; ipratropium and albuterol inhaler; metoprolol; hydrocodone; Zosyn. PAST MEDICAL HISTORY: Hypertension, has known widespread vasculopathy including coronary artery disease, cerebrovascular disease, history of necrotizing fasciitis, hyperlipidemia, recent right-sided impacted stroke; C. diff colitis; O2 requiring COPD; atrial fibrillation; [place] [address] CONSULTATION Name: GARRICKHERBERTJAYLENE Abdi Room: [address] IN [facility]#: [id number] Admission: 11/08/19 Attend Phys: Eliel Christianson MD Discharge: Date of : 43 Report #: [id number] SOCIAL HISTORY: Former smoker. No ethanol. No illicit drug use. FAMILY HISTORY: Noncontributory. REVIEW OF SYSTEMS: As above, somewhat limited. PHYSICAL EXAMINATION: GENERAL: She keeps her eyes closed, although she is tracking. She answers appropriately; [id number] distress, appears somewhat undernourished, chronically ill appearing. VITAL SIGNS: Temperature 97.2, pulse 68, respirations 21, blood pressure is 132/46. SKIN: Warm, dry, no rashes. HEENT: Normocephalic. Extraocular muscles intact. NECK: Supple. LUNGS: Diminished breath sounds. HEART: Regular, soft systolic murmur. ABDOMEN: Soft, nontender, nondistended. EXTREMITIES: No cyanosis. GENITOURINARY AND RECTAL: Deferred. LABORATORY DATA: Electrolytes: Sodium 152, potassium 3.4, chloride 116, bicarb is 28, anion gap of 8, BUN and creatinine 36 and 1.1. Blood cultures as described above, 1 out 2 positive stress Staphylococcus hominis; on the 3rd, 1 out of 2 positive with coag-negative staph. Otherwise not identified the species level. Chest x-ray, some basilar densities and question of atelectasis. CBC: White count of 9.9, H and H of 9.4 and 31.5, platelets of 226. Liver function tests otherwise unremarkable. Albumin of 2.8, total protein 6.9. ASSESSMENT: Positive blood cultures in the setting of recent stroke. I think although 1 out of 2 positive, both with coag-negative staph, it is not clear if they are organism. I think the clinical evidence would favor contaminant probing both situations is notable she is a hard stick. It is reasonable to discontinue the vancomycin, we will discontinue the piperacillin and tazobactam as well, although we will continue the oral vancomycin in the short term ideally tapering that off fairly quickly and see how she does clinically, increase activity is allowed. She is able to do incentive spirometry that would be of benefit as well. Discussed with the spouse. Try to optimize her nutritional status. <ELECTRONICALLY SIGNED> By: Santana Macario MD 11/13/19 1748 1539 1639Josemally Macario MD /nt
[2019-11-13 19:24] LABS: CALCIUM 8.7 mg/dL (8.5-10.1); POTASSIUM 3.3 mmol/L (3.5-5.1)
[2019-11-13 20:00] VITALS: BP 153/72
[2019-11-14] VITALS: BP 124/47
--- NOTE | 2019-11-14 01:56 | NUR ---
PT DROWSEY AROUSES EASILY. ALERT TO SELF AND PLACE. TELEMTRY SHOWS AFIB HR UPPER 50S-60S. OLIVAS WITH CLEAR YELLOW. TURN Q 2 HRS. O2 AT 2 LITERS NC. POTASSIUM REPLACEMENT FOR K+ 3.3. D5 AT 50MLS/HR.
[2019-11-14 04:00] VITALS: BP 148/48
[2019-11-14 05:50] LABS: RBC 3.92 mil/uL (4.20-5.00)
[2019-11-14 05:51] LABS: HEMOGLOBIN 9.1 gm/dL (12.0-15.0); MCH 23.1 pg (26.0-34.0); MCHC 31.2 g/dL (28.0-37.0); MCV 74.1 fL (80.0-100.0); MPV 9.4 fl. (7.2-11.1); RDW-CV 18.9 % (10.5-14.5); WBC 10.2 thou/uL (4.0-11.0)
[2019-11-14 06:00] LABS: ALBUMIN 2.4 g/dL (3.4-5.0); CALCIUM 8.7 mg/dL (8.5-10.1); CREATININE 0.8 mg/dL (0.6-1.3); MAGNESIUM 2.1 mg/dL (1.8-2.4); TOTAL BILIRUBIN 1.2 mg/dL (<0.1-1.0); TOTAL PROTEIN 5.8 g/dL (6.4-8.2)
[2019-11-14 06:01] LABS: POTASSIUM 4.4 mmol/L (3.5-5.1)
--- NOTE | 2019-11-14 06:18 | NUR ---
POTASSIUM LEVEL AT START OF SHIFT 3.3. POTOCAL FOR REPLACEMENT GIVEN. AM K+ LEVEL NOW 4.4
[2019-11-14 08:05] VITALS: BP 100/76
[2019-11-14 10:39] VITALS: BP 109/51
[2019-11-14 11:10] LABS: BE -0.7 mmol/L (-2 to +3); PCO2 27.7 mmHg (35.0-45.0); PO2 90.4 mmHg (75.0-100.0)
[2019-11-14 12:07] LABS: CALCIUM 8.5 mg/dL (8.5-10.1); CREATININE 0.8 mg/dL (0.6-1.3); POTASSIUM 4.4 mmol/L (3.5-5.1)
--- NOTE | 2019-11-14 12:33 | NUR ---
Per , Pt is more encephlopatic today. Pt is a good rehab candidate. Following.
[2019-11-14 16:16] VITALS: BP 105/51
--- NOTE | 2019-11-14 17:19 | NUR ---
PT HALLUCINATING THIS AM. PT LETHARGIC AND RESTING WITH EYES CLOSED AFTER BREAKFAST AND CONTINUES TO BE. AROUSES TO STERNAL RUB BUT DOES NOT OPEN HER EYES. DR SCHILLING AWARE. AT BEDSIDE THROUGH OUT THE DAY. CONT PULSE OX IN PLACE PER ORDER. OLIVAS TO DD. NO S/S OF PAIN. NOT PROGRESSING TOWARDS GOALS.
[2019-11-14 20:00] VITALS: BP 151/60
[2019-11-15] VITALS: BP 157/50
[2019-11-15 04:00] VITALS: BP 155/75
[2019-11-15 06:43] LABS: HEMOGLOBIN 9.3 gm/dL (12.0-15.0); NUCLEATED RBCS 1 /100WBC; WBC 10.6 thou/uL (4.0-11.0)
[2019-11-15 06:45] LABS: HEMATOCRIT 30.1 % (37.0-47.0); MCH 23.2 pg (26.0-34.0); MCHC 30.9 g/dL (28.0-37.0); MPV 9.3 fl. (7.2-11.1); PLATELET COUNT* 197 thou/uL (150-400); RBC 4.01 mil/uL (4.20-5.00); RDW-CV 18.9 % (10.5-14.5)
[2019-11-15 06:48] LABS: ALBUMIN 2.5 g/dL (3.4-5.0); CALCIUM 9.5 mg/dL (8.5-10.1); CREATININE 0.9 mg/dL (0.6-1.3); MAGNESIUM 2.3 mg/dL (1.8-2.4); POTASSIUM 3.6 mmol/L (3.5-5.1); TOTAL BILIRUBIN 1.2 mg/dL (<0.1-1.0); TOTAL PROTEIN 6.2 g/dL (6.4-8.2)
[2019-11-15 07:26] LABS: ABSOLUTE LYMPHOCYTES 0.8 thou/uL (0.8-5.3); ABSOLUTE MONOCYTES 0.1 thou/uL (0.0-1.2); ABSOLUTE NEUTROPHILS 9.6 thou/uL (1.6-8.1); ANISOCYTOSIS 1+; ATYPICAL LYMPHS 2 %; HYPOCHROMASIA 1+; METAMYELOCYTES 4 %; PLATELET ESTIMATE ADEQUATE
[2019-11-15 07:56] VITALS: BP 149/58
--- NOTE | 2019-11-15 08:04 | NUR ---
ASSUMED PT CARE AT APPROX 1930. PT IS ASLEEP BUT AWAKENS WHEN NAME IS CALLED, PT IS ABLE TO ANSWER SOME YES AND NO QUESTIONS, AND HAS SOME PERIODS OF CONFUSION, A LITTLE BIT DIFFICULT TO REDIRECT AT TIMES. ASSESSMENT DONE AND CHARTED. LEFT SIDED WEAKNESS NOTED. NO ACUTE CHANGES OVERNIGHT. CALL LIGHT WITHIN REACH. HOURLY ROUNDING DONE FOR PT SAFETY. HIGH FALL PRECAUTIONS IN PLACE. POSITION CHANGES DONE Q2H.
[2019-11-15 11:57] VITALS: BP 96/54
--- NOTE | 2019-11-15 12:38 | NUR ---
Per , Pt will be ready to dc to acute rehab on Monday. Per rehabilitation engineer, they can accept Pt to ARU on Monday
[2019-11-15 16:23] VITALS: BP 129/41
[2019-11-15 20:00] VITALS: BP 153/65
[2019-11-16] VITALS: BP 156/84
[2019-11-16 03:09] LABS: ABSOLUTE LYMPHOCYTES 1.4 thou/uL (0.8-5.3); ABSOLUTE MONOCYTES 0.5 thou/uL (0.0-1.2); ABSOLUTE NEUTROPHILS 11.6 thou/uL (1.6-8.1); BASOPHILS 0.3 %; EOSINOPHILS 0.1 %; HEMATOCRIT 28.3 % (37.0-47.0); HEMOGLOBIN 8.7 gm/dL (12.0-15.0); LYMPHOCYTES 10.1 %; MCH 23.4 pg (26.0-34.0); MCHC 30.8 g/dL (28.0-37.0); MCV 76.1 fL (80.0-100.0); MONOCYTES 3.8 %; MPV 10.3 fl. (7.2-11.1); NUCLEATED RBCS 0 /100WBC; PLATELET COUNT* 193 thou/uL (150-400); POLYS 85.7 %; RBC 3.72 mil/uL (4.20-5.00); RDW-CV 19.1 % (10.5-14.5); WBC 13.5 thou/uL (4.0-11.0)
[2019-11-16 03:25] LABS: CALCIUM 9.2 mg/dL (8.5-10.1); CREATININE 0.8 mg/dL (0.6-1.3); MAGNESIUM 2.1 mg/dL (1.8-2.4); POTASSIUM 3.8 mmol/L (3.5-5.1)
[2019-11-16 04:00] VITALS: BP 180/66
--- NOTE | 2019-11-16 07:59 | NUR ---
ASSUMED PT CARE AT APPROX 1930. PT IS AWAKE, ORIENTED TO SELF, MOSTLY CONFUSED. RESIDENTIAL PROGRAM MANAGER IN PLACE AND IS TRACING AFIB-RATE CONTROLLED. PT IS NOT IN ANY DISTRESS. POSITION CHANGES DONE Q2H. NO ACUTE CHANGES OVERNIGHT. HIGH FALL PRECAUTIONS IN PLACE. HOURLY ROUNDING DONE FOR PT SAFETY.
[2019-11-16 08:30] VITALS: BP 148/64
[2019-11-16 12:11] VITALS: BP 130/58
[2019-11-16 16:05] VITALS: BP 110/53
[2019-11-16 20:00] VITALS: BP 118/90
--- NOTE | 2019-11-16 20:11 | NUR ---
I ASSUMED CARE OF THE PATIENT AT 0700. SHE IS ALERT AND ORIENTED TO SELF AND CONFUSED. HOURLY ROUNDING IS COMPLETED AND PATIENT NEEDS ARE MET. PAIN IS DENIED. HER SPENT MOST OF THE DAY AT THE BEDSIDE. STEROIDS ARE BEING TAPERED. BLOOD SUGAR IS CHECKED Q6 AND SLIDING SCALE IS NOT NEEDED. SPEECH THERAPY HAS BEEN CONSULTED. TURNS WERE COMPLETED EVERY 2 HOURS. DEISY IS D/D. SHE NEEDS MEAL SETUP. WILL CONTINUE TO MONITOR.
[2019-11-17] VITALS: BP 133/67
[2019-11-17 04:00] VITALS: BP 149/69
[2019-11-17 05:02] LABS: CALCIUM 9.1 mg/dL (8.5-10.1); CREATININE 0.8 mg/dL (0.6-1.3); MAGNESIUM 2.1 mg/dL (1.8-2.4); POTASSIUM 3.3 mmol/L (3.5-5.1)
[2019-11-17 05:42] LABS: ABSOLUTE NEUTROPHILS 8.7 thou/uL (1.6-8.1); BASOPHILS 0.2 %; HEMOGLOBIN 9.4 gm/dL (12.0-15.0); NUCLEATED RBCS 0 /100WBC; WBC 10.9 thou/uL (4.0-11.0)
[2019-11-17 05:43] LABS: ABSOLUTE LYMPHOCYTES 1.5 thou/uL (0.8-5.3); ABSOLUTE MONOCYTES 0.7 thou/uL (0.0-1.2); EOSINOPHILS 0.3 %; HEMATOCRIT 28.7 % (37.0-47.0); LYMPHOCYTES 13.4 %; MCH 28.2 pg (26.0-34.0); MCHC 32.8 g/dL (28.0-37.0); MONOCYTES 6.4 %; MPV 10.4 fl. (7.2-11.1); PLATELET COUNT* 206 thou/uL (150-400); POLYS 79.7 %; RBC 3.35 mil/uL (4.20-5.00); RDW-CV 19.3 % (10.5-14.5)
[2019-11-17 05:45] LABS: MCV 85.8 fL (80.0-100.0)
--- NOTE | 2019-11-17 05:47 | NUR ---
ASSUMED PT CARE AT APPROX 1930. PT IS AWAKE, ORIENTED TO SELF AND PLACE, BUT CONFUSED. PT IS TRACING AFIB ON THE GLOVE STITCHER. NO DESATURATIONS NOTED. ASSESSMENT DONE AND CHARTED. POSITION CHANGES DONE Q2H. NO ACUTE CHANGES THROUGHOUT THIS SHIFT. HOURLY ROUNDING DONE FOR PT SAFETY. HIGH FALL PRECAUTIONS IN PLACE.
--- NOTE | 2019-11-17 07:15 | NUR ---
CHANGE OF SHIFT, BEDSIDE REPORT GIVEN PATIENT SEEN AT BEDSIDE, IN BED ASLEEP ASSUMED PATIENT CARE
[2019-11-17 08:00] VITALS: BP 151/59
[2019-11-17] MEDS ORDERED: PREDNISONE 20 M20 MG PO (08:41)
[2019-11-17] MEDS ORDERED: LANOXIN 0.25M0.25 M1 PO (08:41)
[2019-11-17] MEDS ORDERED: ASPIRIN325 PO (08:41)
[2019-11-17] MEDS ORDERED: ELIQUIS5 MG PO (08:41)
[2019-11-17] MEDS ORDERED: PROTONIX40 M2 PO (08:41)
--- NOTE | 2019-11-17 17:06 | NUR ---
PATIENT DISCHARGED TO REHAB PATIENT SENT VIA BED WITH PERSONAL BELONGINGS DAUGHTER AT BEDSIDE IV REMOVED AND PRESSURE DRSG ON HEART MONITOR REMOVED REPORT GIVEN TO BEAU GARCIA IN REHAB
== END 2019-11-17 15:45 | DRG 64 ==
LOC: M.ERS 02:16 → M.TBA-ER 08:06 → M.ICU 08:06 → M.2W 11-12 18:37
PROVIDERS: Emergency Medicine; Internal Medicine; Internal Medicine Cardiovascular Disease; Internal Medicine Critical Care Medicine; ADMIT Internal Medicine; ATTEND Internal Medicine
PROC: 5A1935Z Respiratory Ventilation, Less than 24 Consecutive Hours (ICD-10-PCS; principal; 2019-11-08)
PROC: B548ZZA Ultrasonography of Superior Vena Cava, Guidance (ICD-10-PCS; principal; 2019-11-08)
PROC: 02HV33Z Insertion of Infusion Device into Superior Vena Cava, Percutaneous Approach (ICD-10-PCS; principal; 2019-11-08)
PROC: 0BH17EZ Insertion of Endotracheal Airway into Trachea, Via Natural or Artificial Opening (ICD-10-PCS; principal; 2019-11-08)
PROC: 5A09357 Assistance with Respiratory Ventilation, Less than 24 Consecutive Hours, Continuous Positive Airway Pressure (ICD-10-PCS; principal; 2019-11-08)
DX: I63.89 Other cerebral infarction (principal); J69.0 Pneumonitis due to inhalation of food and vomit; I50.33 Acute on chronic diastolic (congestive) heart failure; J96.01 Acute respiratory failure with hypoxia; G93.40 Encephalopathy, unspecified; I48.20 Chronic atrial fibrillation, unspecified; K51.90 Ulcerative colitis, unspecified, without complications; G81.94 Hemiplegia, unspecified affecting left nondominant side; I13.0 Hypertensive heart and chronic kidney disease with heart failure and stage 1 through stage 4 chronic kidney disease, or unspecified chronic kidney disease; F03.90 Unspecified dementia, unspecified severity, without behavioral disturbance, psychotic disturbance, mood disturbance, and anxiety; E53.8 Deficiency of other specified B group vitamins; D64.9 Anemia, unspecified; I25.10 Atherosclerotic heart disease of native coronary artery without angina pectoris; J44.9 Chronic obstructive pulmonary disease, unspecified; K21.9 Gastro-esophageal reflux disease without esophagitis; N18.9 Chronic kidney disease, unspecified; G47.33 Obstructive sleep apnea (adult) (pediatric); R73.9 Hyperglycemia, unspecified; E78.5 Hyperlipidemia, unspecified; I35.0 Nonrheumatic aortic (valve) stenosis; Z20.828 Contact with and (suspected) exposure to other viral communicable diseases; R40.2432 Glasgow coma scale score 3-8, at arrival to emergency department; Z87.891 Personal history of nicotine dependence; Z79.899 Other long term (current) drug therapy; Z88.5 Allergy status to narcotic agent; Z88.8 Allergy status to other drugs, medicaments and biological substances; Z90.49 Acquired absence of other specified parts of digestive tract

== ENCOUNTER 2019-11-17 12:33 | Inpatient (IN) | payer MEDICARE, BC ==
[~2019-11-17] VITALS: Ht 170.2 cm; Wt 81.2 kg
[2019-11-17 16:00] VITALS: BP 123/51
[2019-11-17 19:30] VITALS: BP 154/74
[2019-11-18 05:07] LABS: HEMOGLOBIN 8.5 gm/dL (12.0-15.0); MCH 24.3 pg (26.0-34.0); MCHC 30.5 g/dL (28.0-37.0); RBC 3.52 mil/uL (4.20-5.00); RDW-CV 19.5 % (10.5-14.5); WBC 7.7 thou/uL (4.0-11.0)
[2019-11-18 05:28] LABS: MCV 79.5 fL (80.0-100.0)
[2019-11-18 05:36] LABS: CALCIUM 8.9 mg/dL (8.5-10.1); CREATININE 0.8 mg/dL (0.6-1.3); POTASSIUM 4.2 mmol/L (3.5-5.1)
[2019-11-18 07:30] VITALS: BP 147/70
[2019-11-18 19:15] VITALS: BP 120/73
[2019-11-19 05:01] LABS: ALBUMIN 2.5 g/dL (3.4-5.0); CALCIUM 8.7 mg/dL (8.5-10.1); CREATININE 0.7 mg/dL (0.6-1.3); POTASSIUM 3.8 mmol/L (3.5-5.1); TOTAL BILIRUBIN 0.8 mg/dL (<0.1-1.0); TOTAL PROTEIN 5.8 g/dL (6.4-8.2)
[2019-11-19 05:43] LABS: ANISOCYTOSIS 1+; PLATELET ESTIMATE ADEQUATE
[2019-11-19 05:44] LABS: POIKILOCYTOSIS 1+; POLYCHROMASIA 1+
[2019-11-19 05:59] LABS: ABSOLUTE EOSINOPHILS 0.1 thou/uL (0.0-0.7); ABSOLUTE LYMPHOCYTES 0.8 thou/uL (0.8-5.3); ABSOLUTE MONOCYTES 0.3 thou/uL (0.0-1.2); ABSOLUTE NEUTROPHILS 5.8 thou/uL (1.6-8.1); HEMATOCRIT 28.1 % (37.0-47.0); HEMOGLOBIN 8.7 gm/dL (12.0-15.0); MCH 25.9 pg (26.0-34.0); MCHC 30.9 g/dL (28.0-37.0); MCV 83.8 fL (80.0-100.0); MPV 9.9 fl. (7.2-11.1); PLATELET COUNT* 189 thou/uL (150-400); RBC 3.35 mil/uL (4.20-5.00); RDW-CV 19.1 % (10.5-14.5); WBC 6.9 thou/uL (4.0-11.0)
[2019-11-19 08:15] VITALS: BP 141/46
[2019-11-19 20:03] VITALS: BP 127/65
[2019-11-20 07:55] VITALS: BP 145/45
[2019-11-20 10:04] LABS: ABSOLUTE BASOPHILS 0.1 thou/uL (0.0-0.2); ABSOLUTE LYMPHOCYTES 1.1 thou/uL (0.8-5.3); ABSOLUTE MONOCYTES 0.4 thou/uL (0.0-1.2); ABSOLUTE NEUTROPHILS 6.5 thou/uL (1.6-8.1); BASOPHILS 0.7 %; EOSINOPHILS 0.3 %; HEMATOCRIT 28.2 % (37.0-47.0); HEMOGLOBIN 8.6 gm/dL (12.0-15.0); LYMPHOCYTES 13.1 %; MCH 25.8 pg (26.0-34.0); MCHC 30.7 g/dL (28.0-37.0); MCV 84.2 fL (80.0-100.0); MONOCYTES 5.3 %; MPV 10.3 fl. (7.2-11.1); NUCLEATED RBCS 0 /100WBC; PLATELET COUNT* 201 thou/uL (150-400); POLYS 80.6 %; RBC 3.34 mil/uL (4.20-5.00); RDW-CV 32.8 % (10.5-14.5); WBC 8.1 thou/uL (4.0-11.0)
[2019-11-20 10:15] LABS: ALBUMIN 2.6 g/dL (3.4-5.0); CALCIUM 8.6 mg/dL (8.5-10.1); CREATININE 0.8 mg/dL (0.6-1.3); POTASSIUM 3.5 mmol/L (3.5-5.1); TOTAL BILIRUBIN 0.7 mg/dL (<0.1-1.0); TOTAL PROTEIN 5.8 g/dL (6.4-8.2)
[2019-11-20 19:55] VITALS: BP 111/31
[2019-11-21 04:53] LABS: HEMATOCRIT 30.7 % (37.0-47.0); MCH 26.3 pg (26.0-34.0); MCHC 29.4 g/dL (28.0-37.0); MPV 9.5 fl. (7.2-11.1); RBC 3.44 mil/uL (4.20-5.00); RDW-CV 34.4 % (10.5-14.5); WBC 7.6 thou/uL (4.0-11.0)
[2019-11-21 05:01] LABS: MCV 89.4 fL (80.0-100.0)
[2019-11-21 08:00] VITALS: BP 139/47
[2019-11-21 12:42] LABS: BE -3.7 mmol/L (-2 to +3); PCO2 29.9 mmHg (35.0-45.0); PO2 65.8 mmHg (75.0-100.0); pH 7.436 (7.340-7.450)
--- NOTE | 2019-11-21 19:38 | CON ---
[address] [address] CONSULTATION Name: JAYLENE TOVAR Room: [address] ADM IN M.R.#: [id number] Admission: 11/17/19 Attend Phys: Omari Blackburn MD Discharge: Date of : 43 Report #: [id number] THIS REPORT FOR: //name// cc: Dolly Zepeda MD, Tuongvan T. MD ~ THIS REPORT FOR: //name// CC: Dr. Zaid Zepeda DICTATED BY: Ruchi Sharp DATA PROGRAMMER DATE OF SERVICE: 11/21/2019 PRIMARY CARE PHYSICIAN: Dr. Zaid Zepeda. Please note at the time of this dictation, the patient was seen and physically examined by myself. REASON FOR CONSULTATION: Melanotic stool. HISTORY OF PRESENT ILLNESS: This 73-year-old female who presented to the hospital with respiratory distress and mental status changes. She was intubated in the Emergency Room and on the vent for a while. She was noted to have an acute CVA with altered mental status, some congestive heart failure, atrial fibrillation with rapid RVR. Once she was stabilized since she was moved up here to the rehab unit for further strengthening and rehabilitation post-stroke. Prior to all of that in obtaining a history from the , she had established care with [facility] since all of her other doctors are at [facility]. She was reinduced with Remicade. She got 2 doses one at 0 and 2 weeks, she was to go back last 11/13 for her 6-week induction dose, but was in the hospital during that time. He states her diarrhea has completely stopped and she was going about once a day. She did undergo a colonoscopy with Dr. Prince and said everything looked great and that is from the standpoint. Yesterday, the patient was noted to have a melanotic stool. She had another one again today and her Eliquis has been held at this time. The patient has a longstanding history of UC, which we have seen in the past and recently transferred her care to [facility]. ALLERGIES: CODEINE AND VERSED. MEDICATIONS FROM HOME: See JUL. PAST MEDICAL HISTORY: Acute CVA, altered mental status, atrial fibrillation, [place] [address] CONSULTATION Name: JAYLENE TOVAR Room: [address] IN [facility]#: [id number] Admission: 11/17/19 Attend Phys: Omari Blackburn MD Discharge: Date of : 44 Report #: [id number] history of DVT, has an IVC filter, history of Clostridium difficile, aspiration pneumonia, chronic anemia, ulcerative colitis, B12 deficiency. PAST SURGICAL HISTORY: Noncontributory. FAMILY HISTORY: Noncontributory. SOCIAL HISTORY: Has been living with her who is at her bedside, giving her history during our consultation. REVIEW OF SYSTEMS: Twelve-point review of systems is essentially negative except what is mentioned in the HPI. PHYSICAL EXAMINATION: VITAL SIGNS: Temperature 36.8, pulse 68, respirations 16, blood pressure 139/47. HEART: Irregular rate and rhythm. LUNGS: Diminished. ABDOMEN: Soft. Positive bowel sounds in all 4 quadrants with no masses or tenderness noted. LABORATORY DATA: Hemoglobin dropped to 8.5, yesterday was 9, today white count 7.6, platelets 175. BUN is 24, creatinine is 0.8, GFR is 70. Stool for C. diff is still pending. IMPRESSION: 1. Melanotic stool. 2. Anticoagulant therapy, Eliquis due to atrial fibrillation. 3. History of ulcerative colitis, currently seeing Dr. Prince at [facility]. Recent colon, the patient was told looked good. The patient was due for her last Remicade on 11/13, which would have been her third dose of her induction dose at that time. 4. History of Clostridium difficile. 5. Chronic kidney disease. 6. Recent cerebrovascular accident. PLAN: 1. EGD tomorrow with Dr. Dean in the a.m. 2. Clostridium difficile is pending. 3. Holding her anticoagulant therapy. 4. Further recommendations to be made [place] [address] CONSULTATION Name: JAYLENE TOVAR Room: [address] IN ..#: [id number] Admission: 11/17/19 Attend Phys: Omari Blackburn MD Discharge: Date of : 44 Report #: [id number] Thank you for allowing us to participate in this patient's care. Please do not hesitate to call with any questions in regard to this consult. <ELECTRONICALLY SIGNED> By: Horacio Holguin DO 11/21/19 1938 1030 [id number] Holguin DO /nt
[2019-11-21 20:09] VITALS: BP 152/61
[2019-11-22 05:55] VITALS: BP 152/61
[2019-11-22 07:57] VITALS: BP 125/65
[2019-11-22 09:33] LABS: INR 1.2
[2019-11-22 12:00] VITALS: BP 96/55
[2019-11-22 14:00] VITALS: BP 112/54
[2019-11-22 19:40] VITALS: BP 90/64
[2019-11-23 04:30] LABS: HEMOGLOBIN 8.7 gm/dL (12.0-15.0); NUCLEATED RBCS 0 /100WBC; PLATELET COUNT* 186 thou/uL (150-400)
[2019-11-23 04:34] LABS: ABSOLUTE LYMPHOCYTES 0.8 thou/uL (0.8-5.3); ABSOLUTE MONOCYTES 0.3 thou/uL (0.0-1.2); ABSOLUTE NEUTROPHILS 4.1 thou/uL (1.6-8.1); BASOPHILS 0.3 %; HEMATOCRIT 28.3 % (37.0-47.0); LYMPHOCYTES 15.5 %; MCH 25.7 pg (26.0-34.0); MCHC 30.6 g/dL (28.0-37.0); MONOCYTES 5.9 %; MPV 8.9 fl. (7.2-11.1); POLYS 78.3 %; RBC 3.36 mil/uL (4.20-5.00); RDW-CV 33.9 % (10.5-14.5); WBC 5.3 thou/uL (4.0-11.0)
[2019-11-23 04:38] LABS: MCV 84.1 fL (80.0-100.0)
[2019-11-23 04:43] LABS: ALBUMIN 2.2 g/dL (3.4-5.0); CALCIUM 8.8 mg/dL (8.5-10.1); CREATININE 0.8 mg/dL (0.6-1.3); POTASSIUM 4.1 mmol/L (3.5-5.1); TOTAL BILIRUBIN 0.7 mg/dL (<0.1-1.0); TOTAL PROTEIN 5.5 g/dL (6.4-8.2)
[2019-11-23 06:22] LABS: ANISOCYTOSIS 2+; PLATELET ESTIMATE ADEQUATE; TARGET CELLS 2+
[2019-11-23 07:30] VITALS: BP 146/54
[2019-11-23 19:40] VITALS: BP 150/50
[2019-11-24 08:30] VITALS: BP 141/61
[2019-11-25 07:28] VITALS: BP 157/77
[2019-11-25 14:13] LABS: ALBUMIN 2.9 g/dL (3.4-5.0); CALCIUM 8.9 mg/dL (8.5-10.1); POTASSIUM 5.4 mmol/L (3.5-5.1); TOTAL BILIRUBIN 0.7 mg/dL (<0.1-1.0); TOTAL PROTEIN 6.8 g/dL (6.4-8.2)
[2019-11-25 15:19] LABS: HEMATOCRIT 33.5 % (37.0-47.0); HEMOGLOBIN 10.2 gm/dL (12.0-15.0); MCH 25.9 pg (26.0-34.0); MCHC 30.5 g/dL (28.0-37.0); MCV 84.9 fL (80.0-100.0); MPV 9.3 fl. (7.2-11.1); NUCLEATED RBCS 0 /100WBC; PLATELET COUNT* 178 thou/uL (150-400); RBC 3.95 mil/uL (4.20-5.00); RDW-CV 33.1 % (10.5-14.5); WBC 8.1 thou/uL (4.0-11.0)
[2019-11-25 15:51] LABS: ABSOLUTE LYMPHOCYTES 0.2 thou/uL (0.8-5.3); ABSOLUTE MONOCYTES 0.1 thou/uL (0.0-1.2); ABSOLUTE NEUTROPHILS 7.9 thou/uL (1.6-8.1); ANISOCYTOSIS 2+; HYPOCHROMASIA 1+; PLATELET ESTIMATE ADEQUATE; POIKILOCYTOSIS 1+
[2019-11-25 19:15] VITALS: BP 99/60
[2019-11-26 08:00] VITALS: BP 94/50
--- NOTE | 2019-11-26 13:08 | PATH ---
[facility] [address] [place] [address] PATHOLOGY RPT PROCEDURE Name: JAYLENE LINDQUIST Room: [address] IN .R.#: [id number] Admission: 11/17/19 Date of : 43 Discharge: Report #: [id number] Path Case #: [id number] [facility] Accession Number: [id number] . 01 Material submitted: . esophagus - DISTAL ESOPHAGEAL ULCERS. Modifiers: distal . 01 Clinical history: . None provided. . 02 Diagnosis: Distal esophageal ulcers: - Herpes esophagitis with ulceration. See comment. (JAMIN:adrianne; 11/26/2019) S 11/26/2019 0957 Local . 02 Comment: The biopsies reveal benign esophageal mucosa, ulcer bed and inflammatory debris and, seen focally at the surface of several of the mucosal fragments, are dyskeratotic cells and multinucleated keratinocytes with ground glass features. Properly controlled GMS performed on A1 highlights few yeast elements within inflammatory debris only and is interpreted as colonization. Properly controlled immunohistochemical stains also performed on A1 show the following results, supporting the diagnosis: . *HSV I - Strong positive *HSV II - Negative . (JAMIN:[facility]; 11/26/2019) . . *This test was developed and its performance characteristics determined by [facility]. It has not been cleared or approved by the U.S. Food and Drug Administration. The FDA has determined that such clearance or approval is not necessary. This test is used for clinical purposes. It should not be regarded as investigational or for research. This laboratory is certified under the Clinical Laboratory Improvement Amendments of 1988 (CLIA) as qualified to perform high complexity clinical laboratory testing. . 02 Electronically signed: . Vick Ruvalcaba MD, Pathologist NPI- [id number] . 01 Gross description: . Received in formalin labeled "Jaylene Lindquist, distal esophageal ulcers" is a 1.0 x 0.3 x 0.1 cm aggregate of fleming-brown soft tissue fragments. The specimen is submitted entirely in A1. ([facility]; 11/24/2019) [facility] 11/24/2019 [address] [place] [address] PATHOLOGY RPT PROCEDURE Name: JAYLENE LINDQUIST Abdi Room: [facility]- ADM IN M.R.#: [id number] Admission: 11/17/19 Date of : 43 Discharge: Report #: [id number] Path Case #: [id number] . 02 Pathologist provided ICD-10: K20.9 . 02 CPT . 777268, 711100, H10205, O09388 Specimen Comment: A courtesy copy of this report has been sent to [phone], [phone] Specimen Comment: [phone], Specimen Comment: Report sent to ,DR CLEMENTE / DR MCARTHUR Performed at: [address] [facility] [address], [place] [id number] MD Roland Bazan MD Phone: [phone] Performed at: 02 [facility] [place] [address] [address], [place], [place] [id number] MD Vick Ruvalcaba MD Phone: [phone]
[2019-11-26 19:30] VITALS: BP 104/38
[2019-11-27 08:00] VITALS: BP 131/41
[2019-11-27 19:41] VITALS: BP 115/74
[2019-11-28 08:00] VITALS: BP 123/62
[2019-11-28 19:50] VITALS: BP 146/59
[2019-11-29 09:00] VITALS: BP 102/53
[2019-11-29 20:04] VITALS: BP 128/54
[2019-11-30 08:00] VITALS: BP 167/68
[2019-11-30 20:00] VITALS: BP 131/48
[2019-12-01 08:00] VITALS: BP 115/40
[2019-12-01 20:00] VITALS: BP 133/58
[2019-12-02 08:05] VITALS: BP 144/75
[2019-12-02 19:40] VITALS: BP 151/68
[2019-12-03 05:31] LABS: HEMATOCRIT 33.7 % (37.0-47.0); HEMOGLOBIN 10.6 gm/dL (12.0-15.0); MCH 25.6 pg (26.0-34.0); MCHC 31.5 g/dL (28.0-37.0); MCV 81.3 fL (80.0-100.0); MPV 8.6 fl. (7.2-11.1); RBC 4.15 mil/uL (4.20-5.00); RDW-CV 28.9 % (10.5-14.5); WBC 4.6 thou/uL (4.0-11.0)
[2019-12-03 05:52] LABS: CALCIUM 8.6 mg/dL (8.5-10.1); CREATININE 0.7 mg/dL (0.6-1.3); MAGNESIUM 1.7 mg/dL (1.8-2.4); POTASSIUM 3.2 mmol/L (3.5-5.1)
[2019-12-03 08:09] VITALS: BP 149/61
[2019-12-03] MEDS ORDERED: OMEPRAZOLE40 MG PO (10:02)
[2019-12-03] MEDS ORDERED: PREDNISONE 10 M10 M1 PO (10:02)
[2019-12-03] MEDS ORDERED: LANOXIN 0.25M0.25 M1 PO (10:02)
[2019-12-03] MEDS ORDERED: ELIQUIS5 MG PO (10:02)
[2019-12-03] MEDS ORDERED: CARAFATE 11 GM/10 M1 PO (10:02)
[2019-12-03] MEDS ORDERED: ASA81BEC PO (10:02)
[2019-12-03] MEDS ORDERED: APRISO0.375 GM PO (10:06)
[2019-12-03] MEDS ORDERED: RISPERIDONE 00.25 MG PO (10:06)
[2019-12-03 20:10] VITALS: BP 135/60
[2019-12-03 22:22] LABS: MAGNESIUM 1.8 mg/dL (1.8-2.4); POTASSIUM 4.1 mmol/L (3.5-5.1)
[2019-12-04 08:02] VITALS: BP 142/55
[2019-12-04 19:50] VITALS: BP 104/69
[2019-12-05 09:01] VITALS: BP 141/58
[2019-12-05 20:00] VITALS: BP 108/69
[2019-12-06 08:06] VITALS: BP 139/70
[2019-12-06 20:00] VITALS: BP 138/61
[2019-12-07 08:00] VITALS: BP 138/57
[2019-12-07 18:58] LABS: URINE BILIRUBIN NEGATIVE (Negative); URINE BLOOD 3+ (Negative); URINE CLARITY CLOUDY; URINE COLOR YELLOW; URINE GLUCOSE-RANDOM NEGATIVE (Negative); URINE KETONES NEGATIVE (Negative); URINE LEUKOCYTES 1+ (Negative); URINE NITRITE NEGATIVE (Negative); URINE PROTEIN 1+ (Negative); URINE SPECIFIC GRAVITY 1.025 (1.005-1.030); URINE UROBILINOGEN 0.2 E.U./dl (0.2-1.0)
[2019-12-07 19:08] LABS: SQUAMOUS 0-3 Few /LPF (0-3)
[2019-12-07 19:09] LABS: URINE RBC >20 Many /HPF (0-2); URINE WBC >25 Many /HPF (0-5)
[2019-12-07 19:10] LABS: CASTS None Seen /LPF (None Seen); MUCUS >6 Heavy strn/LPF (None Seen)
[2019-12-07 19:11] LABS: CALCIUM OXALATE 0-3 Few /LPF (None Seen); YEAST Present (None Seen)
[2019-12-07 20:00] VITALS: BP 107/41
[2019-12-08 08:00] VITALS: BP 160/68
[2019-12-08 19:46] VITALS: BP 110/43
[2019-12-09 07:30] VITALS: BP 125/51
[2019-12-09 15:27] LABS: URINE BILIRUBIN NEGATIVE (Negative); URINE BLOOD 3+ (Negative); URINE CLARITY CLEAR; URINE COLOR YELLOW; URINE GLUCOSE-RANDOM NEGATIVE (Negative); URINE KETONES NEGATIVE (Negative); URINE LEUKOCYTES-REFLEX 1+ (Negative); URINE NITRITE-REFLEX NEGATIVE (Negative); URINE PROTEIN NEGATIVE (Negative); URINE SPECIFIC GRAVITY 1.025 (1.005-1.030); URINE UROBILINOGEN 0.2 E.U./dl (0.2-1.0)
[2019-12-09 15:40] LABS: HYALINE CASTS 0-3 Few /LPF (None Seen); MUCUS None Seen strn/LPF (None Seen); SQUAMOUS 0-3 Few /LPF (0-3)
[2019-12-09 15:41] LABS: URINE WBC-REFLEX 6-15 Few /HPF (0-5); YEAST-REFLEX Present (None Seen)
[2019-12-09 15:42] LABS: BACTERIA-REFLEX 1-9 Few /HPF (None Seen); CRYSTALS None Seen /LPF (None Seen)
[2019-12-09 19:55] VITALS: BP 153/63
[2019-12-10 08:00] VITALS: BP 116/45
[2019-12-10 19:00] VITALS: BP 130/53
[2019-12-11 07:00] VITALS: BP 126/48
[2019-12-11 13:21] VITALS: BP 126/48
[2019-12-11 13:43] VITALS: BP 126/48
[2019-12-11 16:09] VITALS: BP 126/48
== END 2019-12-11 15:40 | DRG 56 ==
LOC: M.REH 12:33
PROVIDERS: Internal Medicine; Internal Medicine Gastroenterology; Nurse Practitioner; ADMIT Physical Medicine & Rehabilitation; ATTEND Physical Medicine & Rehabilitation
PROC: 0DB38ZX Excision of Lower Esophagus, Via Natural or Artificial Opening Endoscopic, Diagnostic (ICD-10-PCS; principal; 2019-11-22)
PROC: 5A09357 Assistance with Respiratory Ventilation, Less than 24 Consecutive Hours, Continuous Positive Airway Pressure (ICD-10-PCS; 2019-12-03)
PROC: 5A09357 Assistance with Respiratory Ventilation, Less than 24 Consecutive Hours, Continuous Positive Airway Pressure (ICD-10-PCS; 2019-12-08)
PROC: 5A09357 Assistance with Respiratory Ventilation, Less than 24 Consecutive Hours, Continuous Positive Airway Pressure (ICD-10-PCS; 2019-12-10)
DX: G81.94 Hemiplegia, unspecified affecting left nondominant side (principal); I63.9 Cerebral infarction, unspecified; I50.33 Acute on chronic diastolic (congestive) heart failure; J69.0 Pneumonitis due to inhalation of food and vomit; J96.00 Acute respiratory failure, unspecified whether with hypoxia or hypercapnia; G93.40 Encephalopathy, unspecified; I48.20 Chronic atrial fibrillation, unspecified; K51.90 Ulcerative colitis, unspecified, without complications; N39.0 Urinary tract infection, site not specified; I13.0 Hypertensive heart and chronic kidney disease with heart failure and stage 1 through stage 4 chronic kidney disease, or unspecified chronic kidney disease; F03.90 Unspecified dementia, unspecified severity, without behavioral disturbance, psychotic disturbance, mood disturbance, and anxiety; N18.9 Chronic kidney disease, unspecified; D64.9 Anemia, unspecified; E53.8 Deficiency of other specified B group vitamins; G47.33 Obstructive sleep apnea (adult) (pediatric); Z96.649 Presence of unspecified artificial hip joint; K44.9 Diaphragmatic hernia without obstruction or gangrene; R40.0 Somnolence; N32.89 Other specified disorders of bladder; R33.9 Retention of urine, unspecified; Z20.828 Contact with and (suspected) exposure to other viral communicable diseases; Z88.6 Allergy status to analgesic agent; Z09 Encounter for follow-up examination after completed treatment for conditions other than malignant neoplasm; Z86.718 Personal history of other venous thrombosis and embolism; Z79.01 Long term (current) use of anticoagulants; Z87.891 Personal history of nicotine dependence; Z90.49 Acquired absence of other specified parts of digestive tract; Z88.8 Allergy status to other drugs, medicaments and biological substances; Z82.49 Family history of ischemic heart disease and other diseases of the circulatory system; Z84.1 Family history of disorders of kidney and ureter; Z79.82 Long term (current) use of aspirin; Z79.899 Other long term (current) drug therapy

== ENCOUNTER 2020-04-22 01:37 | Inpatient (IN) | payer MEDICARE, BC, MEDICAID ==
[~2020-04-22] VITALS: Ht 167.6 cm; Wt 82.1 kg
--- NOTE | ~2020-04-22 | CON ---
[address] [address] CONSULTATION Name: JAYLENE TOVAR Room: [address] IN M.R.#: [id number] Admission: 04/22/20 Attend Phys: Sophie Palacios Discharge: 04/27/20 Date of : 43 Report #: [id number] THIS REPORT FOR: cc: Dolly Zepeda MD, Tuongvan T. MD ~ Tatyana Dean MD DATE OF SERVICE: 04/23/2020 CONSULTING PHYSICIAN: Tatyana Dean MD The patient personally seen and examined by me. HISTORY OF PRESENT ILLNESS: A 74-year-old female who presented to the Emergency Department with complaints of a cough and shortness of breath that has been worsening. She had increased oxygenation needs and crackles in her lungs and is currently on 7 liters per nasal cannula. She has a known history of diastolic heart failure as well as COPD. She has a known history of ulcerative colitis and was on chronic immunosuppressives. She is followed by [facility]. She is a fairly poor historian and states that she is not sure when her last dose of Remicade was or what the dosing is, she is also on Apriso 4.5 grams. She reports that she has small amounts of blood in her stool approximately every other day and rectal pain. PAST MEDICAL HISTORY: Significant for chronic anemia, atrial fibrillation, chest pain, colitis, diastolic CHF, diverticulitis, respiratory failure, shortness of breath, ulcerative colitis. ALLERGIES: [place]OLAM FROM VERSED CAUSED MENTAL STATUS CHANGES WELL CODEINE. PHYSICAL EXAMINATION: LUNGS: Diminished throughout with fine crackles noted in bilateral upper lobes. CARDIAC: She has atrial fibrillation with a systolic murmur. GASTROINTESTINAL: Diffuse abdominal tenderness, positive bowel sounds in all 4 quadrants, no rebound tenderness. LABORATORY DATA: Hemoglobin is currently 8.8, was 6.9 on admission and she received 2 units of packed red blood cells. Platelets are 363, white blood cell count is 10. Potassium is 3.3, sodium 144. Lactic 1.4. INR is currently 1.2. AST is 7, ALT is 15, alkaline phosphatase is 65, bilirubin 0.6. Iron panels: Iron is 13, TIBC 376, percent saturation of iron 3, unsaturated iron 363. ASSESSMENT: 1. [place] [address] CONSULTATION Name: JAYLENE TOVAR Room: [address]#: [id number] Admission: 04/22/20 Attend Phys: Sophie Palacios Discharge: 04/27/20 Date of : 43 Report #: [id number] 2. Abdominal pain. 3. Bloody stools. 4. History of ulcerative colitis, on Remicade. PLAN: 1. Obtain GI records from [facility] for Remicade dosing and results of last colonoscopy. 2. Labs, CRP and ESR. 3. Monitor hemoglobin. 4. Iron-deficiency anemia, hospitalist is ordering iron infusion. Thank you for allowing us to participate in the care of this jeevan 74-year-old female patient. 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 Please feel free to contact us for any other information regarding this consultation. By: [id number] Dean MD /nt
[~2020-04-22 01:37] MED LIST changes: +ASA81BEC PO; +CARAFATE 11 GM/10 M1 PO; -IPRAT-ALBUT 0.5-3 ML; +IPRAT-ALBUT 0.5-3 ML INH; +PREDNISONE 10 M10 M1 PO; +RISPERIDONE 00.25 MG PO
[2020-04-22 01:39] VITALS: BP 162/75
[2020-04-22] MEDS ORDERED: MELATONIN5 MG (01:51)
[2020-04-22] MEDS ORDERED: HYOSCYAMINE0.125 MG PO (01:53)
[2020-04-22] MEDS ORDERED: MACROBID 100 M100 MG PO (01:54)
[2020-04-22] MEDS ORDERED: LIPITOR40 MG PO (01:55)
[2020-04-22 02:01] LABS: BE -2.7 mmol/L (-2 to +3); PCO2 34.5 mmHg (35.0-45.0); pH 7.413 (7.340-7.450)
[2020-04-22] MEDS ORDERED: IMODIUM A-D2 M1 PO ×2 (02:02)
[2020-04-22] MEDS ORDERED: VITAMIN C500 M2 PO (02:03)
[2020-04-22] MEDS ORDERED: NEURONTIN600 MG PO (02:03)
[2020-04-22 02:04] LABS: PO2 163.1 mmHg (75.0-100.0)
[2020-04-22] MEDS ORDERED: ZINC SULFATE220 MG PO ×2 (02:04)
[2020-04-22] MEDS ORDERED: AZULFIDINE500 MG PO (02:05)
[2020-04-22] MEDS ORDERED: REMERON15 M2 PO (02:05)
[2020-04-22] MEDS ORDERED: NYSTATIN1000000 UN (02:09)
[2020-04-22 02:54] LABS: CALCIUM 9.1 mg/dL (8.5-10.1); CREATININE 0.7 mg/dL (0.6-1.3); INR 1.2; POTASSIUM 3.7 mmol/L (3.5-5.1); PROTIME 12.9 Seconds (9.20-11.50)
[2020-04-22 02:56] LABS: HEMATOCRIT 23.2 % (37.0-47.0); MCH 19.3 pg (26.0-34.0); MCHC 28.9 g/dL (28.0-37.0); MCV 66.7 fL (80.0-100.0); MPV 8.2 fl. (7.2-11.1); NUCLEATED RBCS 0 /100WBC; PLATELET COUNT* 463 thou/uL (150-400); RBC 3.47 mil/uL (4.20-5.00); RDW-CV 18.5 % (10.5-14.5); WBC 12.9 thou/uL (4.0-11.0)
[2020-04-22 03:01] LABS: HEMOGLOBIN 6.7 gm/dL (12.0-15.0)
[2020-04-22 03:04] LABS: ALBUMIN 3.1 g/dL (3.4-5.0); MAGNESIUM 1.7 mg/dL (1.8-2.4); TOTAL BILIRUBIN 0.6 mg/dL (<0.1-1.0); TOTAL PROTEIN 6.6 g/dL (6.4-8.2)
[2020-04-22 04:30] LABS: URINE BILIRUBIN NEGATIVE (Negative); URINE BLOOD NEGATIVE (Negative); URINE CLARITY CLEAR; URINE COLOR YELLOW; URINE GLUCOSE-RANDOM NEGATIVE (Negative); URINE KETONES NEGATIVE (Negative); URINE LEUKOCYTES-REFLEX NEGATIVE (Negative); URINE NITRITE-REFLEX NEGATIVE (Negative); URINE PROTEIN NEGATIVE (Negative); URINE UROBILINOGEN 0.2 E.U./dl (0.2-1.0)
[2020-04-22 04:49] VITALS: BP 100/40
[2020-04-22 05:04] LABS: % SATURATION 3 % (20-39); IRON 13 ug/dL (50-175)
[2020-04-22 06:05] LABS: ABSOLUTE BASOPHILS 0.1 thou/uL (0.0-0.2); ABSOLUTE EOSINOPHILS 0.4 thou/uL (0.0-0.7); ABSOLUTE LYMPHOCYTES 2.2 thou/uL (0.8-5.3); ABSOLUTE MONOCYTES 0.5 thou/uL (0.0-1.2); ABSOLUTE NEUTROPHILS 9.9 thou/uL (1.6-8.1); ANISOCYTOSIS 3+; ATYPICAL LYMPHS 6 %; ATYPICAL MONONUCLEARS 2 %; HYPOCHROMASIA 3+; METAMYELOCYTES 1 %; PLATELET ESTIMATE ADEQUATE
[2020-04-22 08:00] VITALS: BP 105/41
--- NOTE | 2020-04-22 08:58 | NUR ---
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 SHE IS ABLE TO COMMUNICATE HER NEEDS TO STAFF EFFECTIVELY, BUT HER SPEECH IS SOMEWHAT SLURRED FORM OLD CVA. SHE WILL BE NPO FOR ST EVAL FOR POSSIBLE DYSPHAGIA. SHE HAS DENIED THE NEED FOR PAIN MEDICATION UP TO 0700 THIS MORNING. DEISY PATENT.
--- NOTE | 2020-04-22 11:00 | NUR ---
PT IS EXPERIENCING SEVERE ANXIETY AND INCREASED WOB. DR. ABDULLAHI NOTIFIED.
[2020-04-22 11:44] VITALS: BP 118/56; BP 135/58; BP 137/47
[2020-04-22 12:00] VITALS: BP 127/55
--- NOTE | 2020-04-22 13:38 | NUR ---
Pt is A&O. Pt is a LTC resident at [facility], CM spoke with Manuela at [facility] and confirmed that they can accept Pt back at de. Pt wears o2 prn. Pt is wc bound and is a 2 person assist with transfer, also requires a марина lift sometimes. Hx of skilled at [facility] [place]. Anticipate dc in a few days. Following.
[2020-04-22 17:30] LABS: HEMATOCRIT 23.6 % (37.0-47.0)
[2020-04-22 17:43] LABS: PCO2 37.7 mmHg (35.0-45.0); PO2 79.7 mmHg (75.0-100.0); pH 7.456 (7.340-7.450)
[2020-04-22 17:51] LABS: HEMOGLOBIN 6.9 gm/dL (12.0-15.0)
--- NOTE | 2020-04-22 18:22 | EKG ---
[place] [address] ELECTROCARDIOGRAM REPORT Name: JAYLENE TOVAR Room: [address] ADM IN M.R.#: [id number] Admission: 04/22/20 Attend Phys: Odell Strickland Discharge: Date of : 43 Date of Service: 04/22/20 0143 Report #: [id number] THIS REPORT FOR: //name// [facility] ED Test Date: 2020-04-22 Test Time: 01:43:29 Pat Name: JAYLENE LA Department: Room: [facility] Gender: F Cabin Outfitter: [place] : 1945 Requested By: Aaliyah Metzger Order Number: [id number] MD: Gus Valencia Measurements Intervals [place] Rate: 93 P: [place]: QRS: 87 QRSD: 84 T: 230 QT: 278 QTc: 346 Interpretive Statements Atrial fibrillation Borderline right axis deviation Low voltage, extremity leads Nonspecific repol abnormality, diffuse leads Compared to ECG 11/08/2019 02:25:09 Early repolarization now present Electronically Signed On 04-22-2020 18:22:07 KAIAWHINA by Gus Valencia [email or web address] <ELECTRONICALLY SIGNED> By: Sony Valencia MD, [facility] 04/22/20 1822 2 0143 Sony Valencia MD, FAC /EPI
[2020-04-22 19:52] VITALS: BP 100/50; BP 111/51; BP 113/52; BP 115/53
[2020-04-23] VITALS: BP 151/72
[2020-04-23 04:00] VITALS: BP 177/84
[2020-04-23 04:13] LABS: HEMATOCRIT 28.8 % (37.0-47.0); HEMOGLOBIN 8.8 gm/dL (12.0-15.0); MCH 21.6 pg (26.0-34.0); MCHC 30.6 g/dL (28.0-37.0); MCV 70.6 fL (80.0-100.0); MPV 8.2 fl. (7.2-11.1); RBC 4.08 mil/uL (4.20-5.00); RDW-CV 22.9 % (10.5-14.5)
[2020-04-23 04:33] LABS: CALCIUM 8.7 mg/dL (8.5-10.1); CREATININE 0.8 mg/dL (0.6-1.3); POTASSIUM 3.3 mmol/L (3.5-5.1)
[2020-04-23 09:05] VITALS: BP 144/70
[2020-04-23 12:00] VITALS: BP 140/58
--- NOTE | 2020-04-23 12:44 | NUR ---
PT OFF UNIT TO VIDEO SWALLOW.
--- NOTE | 2020-04-23 13:27 | NUR ---
PT RETURN TO UNIT AND IS UP IN RECLINER.
[2020-04-23 14:17] LABS: HEMATOCRIT 28.5 % (37.0-47.0); HEMOGLOBIN 8.5 gm/dL (12.0-15.0)
--- NOTE | 2020-04-23 14:41 | NUR ---
VIDEO SWALLOW STUDY WAS COMPLETED. PT DEMONSTRATED WFL OROPHARYNGEAL SWALLOW FUNCTION AND IS SAFE TO TOLERATE MECH SOFT-CHOPPED/THIN DIET, PILLS WHOLE C THIN OR IN PUREE. NO ASPIRATION OCCURRED. PT SAFE TO D/C FROM [facility] AT THIS TIME. PLEASE RE-CONSULT NEEDED.
--- NOTE | 2020-04-23 14:58 | NUR ---
Wean o2. Video swallow today. Replace K. GI following. Anticipate dc in a day or two.
[2020-04-23 16:00] VITALS: BP 118/53
--- NOTE | 2020-04-23 16:53 | NUR ---
PT HAD RUN OF [facility]. AND SENT MESSAGE TO DR. ABDULLAHI BUT NO RETURN CALL. WILL CONTINUE TO ASSESS.
[2020-04-24] VITALS: BP 131/65
[2020-04-24 04:23] LABS: HEMOGLOBIN 7.9 gm/dL (12.0-15.0); MCH 21.5 pg (26.0-34.0); MCHC 30.2 g/dL (28.0-37.0); MCV 71.3 fL (80.0-100.0); MPV 8.4 fl. (7.2-11.1); RBC 3.65 mil/uL (4.20-5.00); WBC 12.2 thou/uL (4.0-11.0)
[2020-04-24 04:30] VITALS: BP 134/59
[2020-04-24 04:45] LABS: CALCIUM 9.3 mg/dL (8.5-10.1); CREATININE 0.7 mg/dL (0.6-1.3); MAGNESIUM 2.1 mg/dL (1.8-2.4); POTASSIUM 3.8 mmol/L (3.5-5.1)
--- NOTE | 2020-04-24 10:59 | NUR ---
GI following. O2 needs down. Eating better. No planned surgery. Continue on sterioids. CM updated Pt's of possible dc back to [facility] tomorrow. CM spoke with charge nurse at [facility] and informed of possible weekend dc, faxed updated clinical info. Pt will need a rapid covid at dc, chart copied, dc orders will need to be faxed to [phone], nurse report number is [phone]. will need to be updated at time of dc.
[2020-04-24 12:00] VITALS: BP 107/46
--- NOTE | 2020-04-24 15:11 | NUR ---
DISCONTINUE CONTINUOUS PULSE OX PER DR. ABDULLAHI PLAN IN NOTE.
[2020-04-24 16:00] VITALS: BP 110/42
[2020-04-24 23:55] VITALS: BP 183/86
[2020-04-25 04:28] VITALS: BP 191/97
[2020-04-25 08:00] VITALS: BP 134/64
--- NOTE | 2020-04-25 11:05 | NUR ---
RECIEVED REPORT AROUND 729. ASSUMED CARE. IV INTACT LEFT AC. HEART MONITOR ATTACHED AFIB CONTROLLED. PT LYING IN BED. MEDS GIVEN PER JUL. PT STATED "no" TO ANY PAIN. DAUGHTER AT BEDSIDE. VS AND ASSESSMENT CHARTED. CALL LIGHT WITHIN REACH. WILL CONTINUE TO MONITOR.
[2020-04-25 12:01] LABS: ALBUMIN 2.8 g/dL (3.4-5.0); CALCIUM 9.1 mg/dL (8.5-10.1); CREATININE 0.7 mg/dL (0.6-1.3); POTASSIUM 3.7 mmol/L (3.5-5.1); TOTAL BILIRUBIN 0.5 mg/dL (<0.1-1.0); TOTAL PROTEIN 6.3 g/dL (6.4-8.2)
[2020-04-25 12:02] LABS: HEMATOCRIT 29.7 % (37.0-47.0); HEMOGLOBIN 8.6 gm/dL (12.0-15.0); MCH 21.3 pg (26.0-34.0); MCV 73.4 fL (80.0-100.0); MPV 8.1 fl. (7.2-11.1); RBC 4.05 mil/uL (4.20-5.00); RDW-CV 23.6 % (10.5-14.5); WBC 10.2 thou/uL (4.0-11.0)
[2020-04-25 12:48] VITALS: BP 123/54
--- NOTE | 2020-04-25 18:04 | NUR ---
PT LYING IN BED. LEFT SIDED WEAKNESS DUE TO PAST STROKE. Q 2 TURNS. PT RA. SAT'S IN 90'S. IV INTACT LEFT FOREARM WITH LAST BAG OF PROTONIX RUNNING. MEDS GIVEN PER JUL. HOURLY ROUNDING PERFORMED. HEART MONITOR ATTACHED AT AFIB/CONTROLLED. DAUGHTER VISITED THIS SHIFT. NO PAIN REPORTED THIS SHIFT. CALL LIGHT WITHIN REACH. WILL CONTINUE TO MONITOR.
[2020-04-25 18:34] VITALS: BP 118/48
[2020-04-26] VITALS: BP 154/70
[2020-04-26 04:00] VITALS: BP 164/65
[2020-04-26 08:09] VITALS: BP 158/85
--- NOTE | 2020-04-26 10:07 | NUR ---
ASSUMED CARE OF PT THIS AM AROUND 07- THERMITE BOMB LOADER IN PLACE ORDERED, TRACING A-FIB, CHRONIC AND RATE CONTROLLED- UPON ASSESSMENT PT NOTED TO BE UP RESTING IN BED SIDE RECLINER- PT A&O X4, FORGETFULL- INCONT OF BOWEL, OLIVAS IN PLACE D/D CLEAR TAYE URINE- COURSE LUNG SOUNDS WITH AUDIBLE WHEEZE NOTED- OCCASSIONAL NON-PRODUCTIVE COUGH- VSS, O2 SAT 98% ON 1L VIA NC- DYSPNEA NOTED ON EXERTION- ABD SOFT/OBESE/NON-TENDER, BSM X4 QUADS- LAST BM REPORTED 04/25/20- SEP UP ASSIST REQUIRED WITH MEALS, GOOD PO INTAKE NOTED- IV NOTED TO LEFT FA INTACT AND SL, IV IRON GIVEN THIS AM- PT DENIES ANY C/O PAIN/DISCOMFORT AT THIS TIME- CALL LIGHT AND PERSONAL BELONGINGS WITH IN REACH- ALL NEEDS MET AT THIS TIME- WCTM
[2020-04-26 11:58] VITALS: BP 161/68
[2020-04-26 15:50] VITALS: BP 117/46
[2020-04-26 20:00] VITALS: BP 168/88
[2020-04-27] VITALS: BP 170/84
[2020-04-27 04:03] LABS: HEMATOCRIT 31.3 % (37.0-47.0); HEMOGLOBIN 9.4 gm/dL (12.0-15.0)
[2020-04-27 04:59] VITALS: BP 147/69
--- NOTE | 2020-04-27 05:53 | NUR ---
PT CARE ASSUMED AT 1930. ALERT AND ORIENTED X4. WOKE UP CONFUSED AT NIGHT, PT IS REDIRECTED EASILY. OLIVAS IN PLACE AND DRAINING. CALL LIGHT WITHIN REACH AND BED IN LOW POSITION. HOURLY ROUNDING DONE FOR PT SAFETY.
[2020-04-27] MEDS ORDERED: SINGULAIR 10 MG10 M1 PO (08:04)
[2020-04-27] MEDS ORDERED: AZITHROMYCIN 2250 MG PO (08:04)
[2020-04-27] MEDS ORDERED: PREDNISONE 10 M10 MG PO (08:04)
[2020-04-27] MEDS ORDERED: PULMICORT0.5 MG/2 M INH (08:04)
[2020-04-27] MEDS ORDERED: AMOX TR-K CLV1 EAC4 PO (08:04)
[2020-04-27] MEDS ORDERED: VANCOCIN 125 M125 M1 PO (08:12)
--- NOTE | 2020-04-27 11:59 | NUR ---
Pt discharging back to [facility] today. Rapid covid completed, Pt tested positive. CM updated Manuela at [facility], they can still accept back. 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 aware. Faxed dc orders. Chart copied. Nurse report number is [phone].
[2020-04-27 12:00] VITALS: BP 143/76
--- NOTE | 2020-04-27 16:44 | NUR ---
ASSUMED PT CARE AT 0730, PT AOX2-4, FORGETFUL AND SOMETIMES CONFUSED. PT LT SIDE FLACID, NO C/O PAIN OR SHORTNESS OF BREATH. PT IN ROOM AND UPDATED ON POC. DC ORDERS RECEIVED FOR PT TO GO BACK TO [facility] SO RAPID COVID ORDERED AND CAME BACK POSITIVE, PT PUT IN ISO AT THIS TIME AND FACILITY NOTIFIED. DC INSTRUCTIONS, CARE NOTES, SCRIPTS AND F/U APPTS SENT W/ PT. IV AND COUNTER FORMER REMOVED, OLIVAS REMOVED WELL. PT DC'D BY AMBULANCE W/ ALL PAPERWORK AND PERSONAL BELONGINGS TO [facility] AT APPROX 1330.
== END 2020-04-27 13:35 | DRG 177 ==
LOC: M.ERS 01:37 → M.TBA-ER 04:09 → M.2W 04:09
PROVIDERS: Emergency Medicine; Internal Medicine; Surgery; ADMIT Internal Medicine; ATTEND Internal Medicine
PROC: 30233N1 Transfusion of Nonautologous Red Blood Cells into Peripheral Vein, Percutaneous Approach (ICD-10-PCS; principal; 2020-04-22)
PROC: 5A0935A Assistance with Respiratory Ventilation, Less than 24 Consecutive Hours, High Flow/Velocity Cannula (ICD-10-PCS; principal; 2020-04-22)
PROC: 5A0935A Assistance with Respiratory Ventilation, Less than 24 Consecutive Hours, High Flow/Velocity Cannula (ICD-10-PCS; 2020-04-23)
PROC: 5A0935A Assistance with Respiratory Ventilation, Less than 24 Consecutive Hours, High Flow/Velocity Cannula (ICD-10-PCS; 2020-04-25)
PROC: 5A0935A Assistance with Respiratory Ventilation, Less than 24 Consecutive Hours, High Flow/Velocity Cannula (ICD-10-PCS; 2020-04-26)
DX: J69.0 Pneumonitis due to inhalation of food and vomit (principal); J96.01 Acute respiratory failure with hypoxia; U07.1 COVID-19; I69.859 Hemiplegia and hemiparesis following other cerebrovascular disease affecting unspecified side; I48.20 Chronic atrial fibrillation, unspecified; J44.1 Chronic obstructive pulmonary disease with (acute) exacerbation; D62 Acute posthemorrhagic anemia; K51.90 Ulcerative colitis, unspecified, without complications; I16.1 Hypertensive emergency; I50.32 Chronic diastolic (congestive) heart failure; K92.1 Melena; I25.10 Atherosclerotic heart disease of native coronary artery without angina pectoris; K21.9 Gastro-esophageal reflux disease without esophagitis; E11.9 Type 2 diabetes mellitus without complications; I35.0 Nonrheumatic aortic (valve) stenosis; E78.5 Hyperlipidemia, unspecified; I48.0 Paroxysmal atrial fibrillation; I11.0 Hypertensive heart disease with heart failure; Z96.641 Presence of right artificial hip joint; Z86.711 Personal history of pulmonary embolism; Z79.899 Other long term (current) drug therapy; Z79.01 Long term (current) use of anticoagulants; Z79.82 Long term (current) use of aspirin; Z88.5 Allergy status to narcotic agent; Z86.718 Personal history of other venous thrombosis and embolism; Z88.8 Allergy status to other drugs, medicaments and biological substances; Z87.891 Personal history of nicotine dependence; Z90.49 Acquired absence of other specified parts of digestive tract

== ENCOUNTER 2020-04-28 08:21 | Inpatient (IN) | payer MEDICARE, BC, MEDICAID ==
[~2020-04-28] VITALS: Ht 162.6 cm; Wt 75.7 kg
[~2020-04-28 08:21] MED LIST changes: +AMOX TR-K CLV1 EAC4 PO; +AZITHROMYCIN 2250 MG PO; +HYOSCYAMINE0.125 MG PO; +IMODIUM A-D2 M1 PO; +MACROBID 100 M100 MG PO; +MELATONIN5 MG; +NEURONTIN600 MG PO; +NYSTATIN1000000 UN; +REMERON15 M2 PO; +VANCOCIN 125 M125 M1 PO; +VITAMIN C500 M2 PO; +ZINC SULFATE220 MG PO
[2020-04-28 08:29] VITALS: BP 106/55
[2020-04-28 09:04] LABS: ABSOLUTE LYMPHOCYTES 0.5 thou/uL (0.8-5.3); ABSOLUTE MONOCYTES 0.5 thou/uL (0.0-1.2); BASOPHILS 0.1 %; EOSINOPHILS 0.1 %; HEMATOCRIT 32.4 % (37.0-47.0); HEMOGLOBIN 9.7 gm/dL (12.0-15.0); LYMPHOCYTES 4.6 %; MCHC 30.1 g/dL (28.0-37.0); MCV 73.1 fL (80.0-100.0); MONOCYTES 4.6 %; MPV 8.2 fl. (7.2-11.1); NUCLEATED RBCS 0 /100WBC; PLATELET COUNT* 346 thou/uL (150-400); POLYS 90.6 %; RBC 4.43 mil/uL (4.20-5.00); RDW-CV 26.5 % (10.5-14.5); WBC 9.9 thou/uL (4.0-11.0)
[2020-04-28 09:11] LABS: BE -0.2 mmol/L (-2 to +3); PCO2 37.4 mmHg (35.0-45.0); PO2 63.2 mmHg (75.0-100.0); pH 7.425 (7.340-7.450)
[2020-04-28 09:16] LABS: CALCIUM 8.4 mg/dL (8.5-10.1); CREATININE 0.6 mg/dL (0.6-1.3); POTASSIUM 3.9 mmol/L (3.5-5.1)
[2020-04-28 09:20] LABS: ALBUMIN 2.6 g/dL (3.4-5.0); MAGNESIUM 1.9 mg/dL (1.8-2.4); TOTAL BILIRUBIN 0.6 mg/dL (<0.1-1.0); TOTAL PROTEIN 5.7 g/dL (6.4-8.2)
[2020-04-28 10:53] LABS: NT-PRO BRAIN NAT PEPTIDE 2794 pg/mL (<300)
[2020-04-28 10:57] LABS: URINE BILIRUBIN NEGATIVE (Negative); URINE BLOOD TRACE (Negative); URINE CLARITY CLEAR; URINE COLOR YELLOW; URINE GLUCOSE-RANDOM NEGATIVE (Negative); URINE KETONES NEGATIVE (Negative); URINE LEUKOCYTES-REFLEX NEGATIVE (Negative); URINE NITRITE-REFLEX NEGATIVE (Negative); URINE PROTEIN NEGATIVE (Negative); URINE UROBILINOGEN 0.2 E.U./dl (0.2-1.0)
[2020-04-28 11:13] LABS: APTT 26.9 Seconds (25.0-31.3); INR 1.1; PROTIME 11.2 Seconds (9.20-11.50)
[2020-04-28 14:40] VITALS: BP 102/79
[2020-04-28 16:00] VITALS: BP 111/51
--- NOTE | 2020-04-28 16:21 | NUR ---
PATIENT ARRIVED FROM ER THIS AFTERNOON PER CART. PATIENT PLACED ON TELE MONITOR. VS MONITORED. O2 SAT 89 TO 90 % ON 5 LITERS. O2 INCREASED TO 6 LITERS. TELE SHOWS AFIB WITH OCCASIONAL VENTRICULAR ECTOPIES. PATIENT WAS INCONTINENT OF URINE. TEMP WAS 98.8. COARSE NONPRODUCTIVE COUGH. PATIENT IS ALERT AND ORIENTED X 4 AND DENIES PAIN. PATIENT PLACED IN ENHANCED PRECAUTIONS. IV ANTIBIOTICS STARTED. WILL CONTINUE TO MONITOR. PATIENT IS ALSON ON FALL PRECAUTIONS, CALL LIGHT IS IN REACH.
[2020-04-28 21:37] VITALS: BP 118/69
[2020-04-28 23:28] VITALS: BP 109/59; BP 137/65
[2020-04-29 04:00] VITALS: BP 132/68
--- NOTE | 2020-04-29 04:35 | NUR ---
PT A&O, VSS ON 6L HIGH FLOW NC, AFIB ON THE MONITOR, PT REFUSED 2100 ORAL MEDICATIONS, PT TURNED Q2H. PT SLEEPING WELL, WILL CONTINUE TO MONITOR.
[2020-04-29 08:00] VITALS: BP 137/65
[2020-04-29 09:44] LABS: HEMATOCRIT 39.4 % (37.0-47.0); HEMOGLOBIN 11.6 gm/dL (12.0-15.0); MCH 22.3 pg (26.0-34.0); MCHC 29.5 g/dL (28.0-37.0); MCV 75.4 fL (80.0-100.0); MPV 8.4 fl. (7.2-11.1); NUCLEATED RBCS 0 /100WBC; PLATELET COUNT* 314 thou/uL (150-400); RBC 5.22 mil/uL (4.20-5.00); RDW-CV 27.5 % (10.5-14.5); WBC 5.1 thou/uL (4.0-11.0)
[2020-04-29 09:49] LABS: CALCIUM 9.2 mg/dL (8.5-10.1); CREATININE 0.5 mg/dL (0.6-1.3); POTASSIUM 3.7 mmol/L (3.5-5.1)
--- NOTE | 2020-04-29 10:25 | NUR ---
CM SPOKE TO PT'S SPOUSE TO COMPLETE CM ASSESSMENT. PT'S SPOUSE INFORMS THAT THE PT RECENTLY D/C'D FROM [facility]. PT RESIDES AT [facility] LT. RITESH SPOKE TO LUCILA WITH [facility] ADMISSIONS AND SHE CONFIRMS ALL OF THE ABOVE INFO. PT IS WHEELCHAIR BOUND AND USES A JOSLYN LIFT FOR TRANSFERS. PT IS AN ASSIST OF 2 FOR CARES. [facility] WILL ACCEPT PT AT D/C. PRIOR TO PREVIOUS ACUTE ADMIT PT WORE 2L O2 PRN. CM WILL REMAIN AVAILABLE TO ASSIST AND FOLLOW NEEDED. [facility] PHONE: [phone] FAX: [phone]
[2020-04-29 10:43] LABS: ABSOLUTE LYMPHOCYTES 0.3 thou/uL (0.8-5.3); ABSOLUTE NEUTROPHILS 4.8 thou/uL (1.6-8.1); METAMYELOCYTES 3 %; PLATELET ESTIMATE ADEQUATE
[2020-04-29 12:00] VITALS: BP 91/60
[2020-04-29 16:00] VITALS: BP 82/38
--- NOTE | 2020-04-29 17:16 | NUR ---
ORDERS RECEIVED AND CHART REVIEWED. PATIENT IS W/C BOUND WITH JOSLYN LIFT. DUE TO DEPENDENT LEVEL OF FUNCTION PT IS AT HE BASE-LINE FUNCTIONAL STATUS AND WILL THEREFORE BE DC'ED FROM P.T. SERVICES. GEORGE BURKETT, MPT
[2020-04-29 20:13] VITALS: BP 120/49
[2020-04-30] VITALS (7 sets, daily range): BP systolic 105–157; BP diastolic 46–76
--- NOTE | 2020-04-30 04:02 | NUR ---
PT A&O, VSS ON 6L HIGH FLOW NC, PT AFIB/AFLUTTER ON MONITOR, PT TURNED Q2H, PT SLEEPING WELL, WILL CONTINUE TO MONITOR.
[2020-04-30 04:54] LABS: HEMATOCRIT 34.2 % (37.0-47.0); HEMOGLOBIN 10.3 gm/dL (12.0-15.0); MCH 22.3 pg (26.0-34.0); MCHC 30.2 g/dL (28.0-37.0); MCV 73.9 fL (80.0-100.0); MPV 8.5 fl. (7.2-11.1); RBC 4.63 mil/uL (4.20-5.00); WBC 6.1 thou/uL (4.0-11.0)
[2020-04-30 05:09] LABS: ALBUMIN 2.4 g/dL (3.4-5.0); CREATININE 0.6 mg/dL (0.6-1.3); MAGNESIUM 2.3 mg/dL (1.8-2.4); POTASSIUM 4.1 mmol/L (3.5-5.1); TOTAL BILIRUBIN 0.4 mg/dL (<0.1-1.0); TOTAL PROTEIN 5.6 g/dL (6.4-8.2)
--- NOTE | 2020-04-30 15:53 | NUR ---
IF PT.DISCHARGED OVER THE WEEKEND, LUCILA/JULIETH SAID THEY WOULD ACCEPT HER BACK. CALL CHARGE NURSE AND DISCUSS. ISXG-[phone]/ FAW-[phone].
--- NOTE | 2020-04-30 18:50 | NUR ---
PT RESTING QUIETLY IN BED. REPOSITIONED TO LEFT SIDE WITH WEDGE. PT DENIES ANY NEEDS OR CONCERNS AT THIS TIME. VSS, A&OX3, ON BEDREST. WILL CONTINUE POC, NURSING WILL CONTINUE TO MONIOR.
[2020-05-01] VITALS (7 sets, daily range): BP systolic 97–184; BP diastolic 43–92
--- NOTE | 2020-05-01 01:18 | NUR ---
ASSUMED CARE OF PT AT 1900. PT IS ALERT AND ORIENTED. VSS. PERRLA. NO COMPLAINTS OF PAIN. PT IS FLACCID ON THE LEFT SIDE. PT IS ON 2 LITERS O2. PT IS IN A FIB ON THE TELEMETRY. PT IS RESTING COMFORTABLY IN BED. RESPIRATIONS ARE EVEN AND NONLABORED. WILL CONTINUE TO MONITOR PT.
[2020-05-01 04:08] LABS: HEMATOCRIT 34.2 % (37.0-47.0); HEMOGLOBIN 10.5 gm/dL (12.0-15.0); MCH 22.5 pg (26.0-34.0); MCHC 30.7 g/dL (28.0-37.0); MCV 73.3 fL (80.0-100.0); MPV 8.7 fl. (7.2-11.1); RBC 4.66 mil/uL (4.20-5.00); RDW-CV 29.6 % (10.5-14.5); WBC 9.1 thou/uL (4.0-11.0)
[2020-05-01 04:20] LABS: ALBUMIN 2.5 g/dL (3.4-5.0); CALCIUM 8.8 mg/dL (8.5-10.1); CREATININE 0.6 mg/dL (0.6-1.3); POTASSIUM 3.9 mmol/L (3.5-5.1); TOTAL BILIRUBIN 0.4 mg/dL (<0.1-1.0); TOTAL PROTEIN 5.6 g/dL (6.4-8.2)
[2020-05-02] VITALS: BP 145/49
--- NOTE | 2020-05-02 03:56 | NUR ---
ASSUMED CARE OF PT AT 1900. PT IS ALERT AND ORIENTED. VSS. PERRLA. PT IS FLACCID ON LEFT SIDE FROM PREVIOUS STROKE. PT IS ON 7 LITERS O2. PT IS IN AFIB ON THE TELEMETRY. PT IS RESTING COMFORTABLY IN BED. RESPIRATIONS ARE EVEN AND NONLABORED. WILL CONTINUE TO MONITOR PT.
[2020-05-02 04:00] VITALS: BP 136/74
[2020-05-02 08:20] VITALS: BP 141/72
[2020-05-02 12:00] VITALS: BP 147/66
[2020-05-02 14:18] LABS: NT-PRO BRAIN NAT PEPTIDE 1341 pg/mL (<300)
[2020-05-02 16:00] VITALS: BP 135/51
--- NOTE | 2020-05-02 18:46 | NUR ---
ASSESSMENT DOCUMENTED. MEDS GIVEN PER E-JUL. PT LOST IV ACCESS THIS SHIFT. UNABLE TO OBTAIN ACCESS, NOTIFIED. PT INCONTINENT THROUGH SHIFT. ISOLATION MAINTAINED.
[2020-05-02 20:15] VITALS: BP 174/76
[2020-05-03 00:29] VITALS: BP 155/73
--- NOTE | 2020-05-03 02:35 | NUR ---
ASSUMED CARE OF PT AT 1900. PT IS ALERT AND ORIENTED. PT DOES HAVE TEMP PERIODS OF CONFUSION AND FORGETFULLNESS. VSS. PERRLA. NO PAIN. PUREWICK IN PLACE FOR INCONTINANCE. PT IS IN A FIB ON THE TELMETRY. PT IS RESTING COMFORTABLY IN BED. RESPIRATIONS ARE EVEN AND NONLABORED. WILL CONTINUE TO MONITOR PT.
[2020-05-03 04:20] LABS: HEMATOCRIT 34.3 % (37.0-47.0); HEMOGLOBIN 10.3 gm/dL (12.0-15.0); MCH 22.1 pg (26.0-34.0); MCHC 30.2 g/dL (28.0-37.0); MCV 73.3 fL (80.0-100.0); MPV 8.8 fl. (7.2-11.1); RBC 4.67 mil/uL (4.20-5.00); RDW-CV 31.1 % (10.5-14.5); WBC 7.6 thou/uL (4.0-11.0)
[2020-05-03 04:32] LABS: ALBUMIN 2.9 g/dL (3.4-5.0); CALCIUM 8.9 mg/dL (8.5-10.1); CREATININE 0.5 mg/dL (0.6-1.3); MAGNESIUM 1.9 mg/dL (1.8-2.4); POTASSIUM 3.3 mmol/L (3.5-5.1); TOTAL BILIRUBIN 0.6 mg/dL (<0.1-1.0); TOTAL PROTEIN 6.1 g/dL (6.4-8.2)
[2020-05-03 04:55] VITALS: BP 163/78
[2020-05-03 07:30] VITALS: BP 166/69
[2020-05-03 12:00] VITALS: BP 154/91
[2020-05-03 16:00] VITALS: BP 112/52
--- NOTE | 2020-05-03 17:42 | NUR ---
ASSESSMENT DOCUMENTED. MEDS GIVEN PER E-MAR. NO IV ACCESS THIS SHIFT. NO REPORTS OF PAIN. PT TOLERATING NECTAR THICK LIQUIDS AND PUREED FOODS. O2 AT 2L NC THIS SHIFT. FAMILY UPDATED ON PLAN OF CARE. PUREWICK IN PLACE. ISOLATION MAINTAINED.
[2020-05-04 00:44] VITALS: BP 122/52
[2020-05-04 04:00] VITALS: BP 180/84
--- NOTE | 2020-05-04 10:20 | NUR ---
NEW ORDERS RECEIVED ON 05/02/20. CONSULTED WITH DR. URIBE REGARDING PT'S FUNCTIONAL STATUS AND BASELINE BEING DEPENDENT ON JOSLYN LIFTS AND WC BOUD. DR. URIBE AWARE NO FUNCTIONAL GOALS OR NEED FOR P.T. WILL D/C P.T. SERVICES WITHOUT COMPLETING EVAL
--- NOTE | 2020-05-04 10:55 | NUR ---
PT RESIDES IN LTC AND USES JOS[facility] FOR ALL TRANSFERS. IS W/C BOUND AND DEPENDENT FOR SELFCARES. PT NOT APPROPRIATE FOR OCCUPATIONAL THERAPY AT THIS TIME. PLAN TO DISCHARGE FROM [facility].
--- NOTE | 2020-05-04 11:25 | NUR ---
PT.HAS DISCHARGE ORDERS TO RETURN TO [facility]. NOTIFIED FRANCISCO/PRODUCTION GRADER AT [facility]. SHE SAID PT.DID NOT NEED ANOTHER COVID TEST. FAXED DISCHARGE ORDERS AND MEDS TO HER . CM WILL SET UP AMBULANCE FOR 1300. CHART COPIED TO GO WITH PT. FRANCISCO,RN TO CALL REPORT. CM NOTIFIED LANG, OF DISCHARGE.
[2020-05-04 12:21] VITALS: BP 146/52
--- NOTE | 2020-05-04 15:55 | NUR ---
ASSESSMENT DOCUMENTED. MEDS GIVEN PER E-MAR. PT REFUSED AM BP AND MEDS. DR NOTIFIED. DC ORDERS RECIEVED. FAMILY NOTIFIED. REPORT GIVEN TO TIM AT [facility]. PT LEFT VIA EMS ON 2L NC.
== END 2020-05-04 13:30 | DRG 177 ==
LOC: M.ERS 08:21 → M.ORTHSURG 10:48 → M.TBA-ER 10:48 → M.ORTHSURG 15:11
PROVIDERS: Internal Medicine; Personal Emergency Response Attendant; ADMIT Internal Medicine; ATTEND Internal Medicine
PROC: 5A0935A Assistance with Respiratory Ventilation, Less than 24 Consecutive Hours, High Flow/Velocity Cannula (ICD-10-PCS; principal; 2020-04-28)
PROC: XW033E5 Introduction of Remdesivir Anti-infective into Peripheral Vein, Percutaneous Approach, New Technology Group 5 (ICD-10-PCS; principal; 2020-04-28)
PROC: 5A0935A Assistance with Respiratory Ventilation, Less than 24 Consecutive Hours, High Flow/Velocity Cannula (ICD-10-PCS; 2020-04-29)
PROC: 5A0935A Assistance with Respiratory Ventilation, Less than 24 Consecutive Hours, High Flow/Velocity Cannula (ICD-10-PCS; 2020-04-30)
PROC: 5A0935A Assistance with Respiratory Ventilation, Less than 24 Consecutive Hours, High Flow/Velocity Cannula (ICD-10-PCS; 2020-05-01)
PROC: XW13325 Transfusion of Convalescent Plasma (Nonautologous) into Peripheral Vein, Percutaneous Approach, New Technology Group 5 (ICD-10-PCS; 2020-05-01)
PROC: 5A0935A Assistance with Respiratory Ventilation, Less than 24 Consecutive Hours, High Flow/Velocity Cannula (ICD-10-PCS; 2020-05-02)
DX: U07.1 COVID-19 (principal); J12.89 Other viral pneumonia; J96.21 Acute and chronic respiratory failure with hypoxia; J96.22 Acute and chronic respiratory failure with hypercapnia; J44.1 Chronic obstructive pulmonary disease with (acute) exacerbation; J95.01 Hemorrhage from tracheostomy stoma; I50.32 Chronic diastolic (congestive) heart failure; I48.20 Chronic atrial fibrillation, unspecified; J44.0 Chronic obstructive pulmonary disease with (acute) lower respiratory infection; I11.0 Hypertensive heart disease with heart failure; E11.9 Type 2 diabetes mellitus without complications; E78.5 Hyperlipidemia, unspecified; I25.10 Atherosclerotic heart disease of native coronary artery without angina pectoris; D64.9 Anemia, unspecified; F03.90 Unspecified dementia, unspecified severity, without behavioral disturbance, psychotic disturbance, mood disturbance, and anxiety; K21.9 Gastro-esophageal reflux disease without esophagitis; Z86.718 Personal history of other venous thrombosis and embolism; Z86.711 Personal history of pulmonary embolism; Z95.5 Presence of coronary angioplasty implant and graft; Z79.82 Long term (current) use of aspirin; Z79.899 Other long term (current) drug therapy; Z88.8 Allergy status to other drugs, medicaments and biological substances; Z88.5 Allergy status to narcotic agent

== ENCOUNTER 2020-08-21 01:35 | Inpatient (IN) | payer MEDICARE, BC, MEDICAID ==
[~2020-08-21] VITALS: Ht 167.6 cm; Wt 74.4 kg
[2020-08-21 02:06] LABS: HEMATOCRIT 34.1 % (37.0-47.0); HEMOGLOBIN 10.3 gm/dL (12.0-15.0); MCH 22.1 pg (26.0-34.0); MCHC 30.3 g/dL (28.0-37.0); MCV 72.9 fL (80.0-100.0); MPV 8.2 fl. (7.2-11.1); NUCLEATED RBCS 0 /100WBC; PLATELET COUNT* 360 thou/uL (150-400); RBC 4.68 mil/uL (4.20-5.00); RDW-CV 20.3 % (10.5-14.5); WBC 14.3 thou/uL (4.0-11.0)
[2020-08-21 02:11] LABS: BE 0.2 mmol/L (-2 to +3); PCO2 34.2 mmHg (35.0-45.0); PO2 84.5 mmHg (75.0-100.0); pH 7.459 (7.340-7.450)
[2020-08-21 02:20] LABS: CALCIUM 9.3 mg/dL (8.5-10.1); CREATININE 0.6 mg/dL (0.6-1.3); POTASSIUM 4.2 mmol/L (3.5-5.1)
[2020-08-21] MEDS ORDERED: RISPERDAL0.5 MG PO (02:30)
[2020-08-21 02:33] LABS: APTT 26.5 Seconds (25.0-31.3); INR 1.1; PROTIME 11.8 Seconds (9.20-11.50)
[2020-08-21 02:35] LABS: ALBUMIN 3.4 g/dL (3.4-5.0); MAGNESIUM 1.9 mg/dL (1.8-2.4); TOTAL BILIRUBIN 0.7 mg/dL (<0.1-1.0); TOTAL PROTEIN 7.6 g/dL (6.4-8.2)
[2020-08-21] MEDS ORDERED: FLOVENT HFA 4444 MCG INH (02:37)
[2020-08-21] MEDS ORDERED: FLOMAX0.4 MG PO (02:38)
[2020-08-21 03:12] LABS: INFLUENZA A ANTIGEN Negative (Negative); INFLUENZA B ANTIGEN Negative (Negative)
[2020-08-21 04:49] VITALS: BP 114/74
[2020-08-21 05:15] VITALS: BP 122/55
[2020-08-21 05:28] LABS: ABSOLUTE LYMPHOCYTES 0.7 thou/uL (0.8-5.3); ABSOLUTE MONOCYTES 0.4 thou/uL (0.0-1.2); ABSOLUTE NEUTROPHILS 13.2 thou/uL (1.6-8.1); HYPOCHROMASIA 1+
[2020-08-21 05:29] LABS: ANISOCYTOSIS 1+; MICROCYTES Occasional; POIKILOCYTOSIS Occasional
--- NOTE | 2020-08-21 06:29 | NUR ---
ASSUMED PT CARE AT 0452. REPORT RECEIVED PER ED RN BRITTANY. PT ADMITTED FOR ACUTE RESPIRATORY FAILURE. PT ARRIVED VIA EMS FROM [facility] W/ C/O FEVER AND CHILLS W/ INCREASED SOA. SOA STARTED LAST NOC @ 1800. PT IS COVID NEGATIVE. PT ADMITTED TO TELE UNIT ROOM #209. PT IS A/OX4. PT IS ON TELE-MONITOR AND IS SINUS JERMAINE W/ AFIB. PT HAS A HX OF AFIB. AFIB IS RATE CONTROLLED. PT DENIES C/O CHEST PAIN, DIZZINESS, OR FEELING LIGHTHEADED. PT HAS TRACE EDEMA IN BL ANKLES AND FEET. RESPIRATIONS ARE COURSE AND DIMINISHED THROUGHOUT. PT IS ON O2 VIA NC AT 5L/MIN. PT WEARS 2L O2 NC AT NURSING FACILITY. PT WAS GIVEN LASIX IN ED. PT HAS A PUR-WICK IN PLACE. URINE OUTPUT IS CLEAR YELLOW, 600ML VOLUME IN COLLECTION CANNISTER. PT HAS A REDDENED AREA ON BOTTOM, PRIMARILY THE LEFT SIDE. SKIN IS INTACT AND BLANCHABLE. HOME-CARE DONE AND BARRIER CREAM APPLIED. PT HAS BEEN REPOSITIONED AND IS ON RIGHT SIDE. HOURLY ROUNDS COMPLETE CHARTED. CALL LIGHT WITHIN REACH. PT CURRENTLY ASLEEP. WILL CONT. TO MONITOR.
--- NOTE | 2020-08-21 07:15 | NUR ---
CHANGE OF SHIFT BEDSIDE REPORT GIVEN PATIENT SEEN AT BEDSIDE, IN BED ASLEEP ASSUMED PATIENT CARE
[2020-08-21 07:55] LABS: CREATININE 0.8 mg/dL (0.6-1.3)
[2020-08-21 07:58] LABS: CALCIUM 7.2 mg/dL (8.5-10.1)
[2020-08-21 08:00] VITALS: BP 130/48
--- NOTE | 2020-08-21 11:19 | EKG ---
[place] [address] ELECTROCARDIOGRAM REPORT Name: JAYLENE TOVAR Room: [address] ADM IN M.R.#: [id number] Admission: 08/21/20 Attend Phys: Katya De La O Discharge: Date of : 43 Date of Service: 08/21/20 0142 Report #: [id number] THIS REPORT FOR: //name// [facility] ED Test Date: 2020-08-21 Test Time: 01:42:26 Pat Name: JAYLENE LA Department: Room: [facility] Gender: F Human Resources Director: MARCY : 1945 Requested By: Radha Jones Order Number: [id number] MD: Reginald Montemayor Measurements Intervals [place] Rate: 80 P: [place]: QRS: 129 QRSD: 92 T: 244 QT: 375 QTc: 433 Interpretive Statements Right and left arm electrode reversal, interpretation assumes no reversal Atrial fibrillation septal q waves Right axis deviation Low voltage, extremity leads Compared to ECG 04/22/2020 01:43:29 no change Electronically Signed On 08-21-2020 11:19:45 CDT by Reginald Montemayor [email or web address] <ELECTRONICALLY SIGNED> By: Reginald Montemayor MD, FACC 08/21/20 1119 1 0142 Reginald Montemayor MD, FAC /EPI
[2020-08-21 11:29] VITALS: BP 130/48
--- NOTE | 2020-08-21 13:04 | NUR ---
CM spoke with in room. Pt is a LTC resident at [facility]. CM spoke with Manuela at , confirmed that they are able to accept Pt back at dc. Pt is wc bound, марина lift. Pt wears 2L o2. Hx of skilled at [facility]. No weekend dc planned. Cm faxed clinicals to . Goal is back to LTC at dc, via ambulance. MATT p:[phone] f:[phone]
[2020-08-21 14:02] LABS: CALCIUM 9.3 mg/dL (8.5-10.1); CREATININE 0.7 mg/dL (0.6-1.3)
[2020-08-21 20:00] VITALS: BP 135/69
[2020-08-22 00:38] VITALS: BP 102/41
--- NOTE | 2020-08-22 02:57 | NUR ---
INITAL ASSESSMENT PT IV SWOLLEN. IV DC R HAND. NEW IV PLACED IN L WRIST. PT VERY LETHARGIC, AROUSABLE. PT STATED SHE DID NOT GET MUCH SLEEP THE PREVIOUS SHIFT. RESPERIDONE, MIRTZAPINE AND MELATONE HELD FOR LETHARGY. PT WIDE AWAKE AT MIDNIGHT. THOSE MEDS GIVEN AT MN. O2 AT 5 L[address]ERS NC[address] PURE WICK IN PLACE.
[2020-08-22 08:00] VITALS: BP 120/52
[2020-08-22] MEDS ORDERED: APRISO0.375 GM PO (10:41)
[2020-08-22 12:00] VITALS: BP 100/39
[2020-08-22] MEDS ORDERED: COMBIVENT INH (13:00)
[2020-08-22 16:00] VITALS: BP 99/37
[2020-08-22 20:00] VITALS: BP 101/69; BP 99/56
[2020-08-22 23:44] VITALS: BP 122/60
--- NOTE | 2020-08-23 02:50 | NUR ---
PT ALERT ORIENTED. TURN Q 2 HRS. TELEMETRY SHOWS AFIB. O2 AT [address] L[address]ERS NC[address]URE WICK IN PLACE.
[2020-08-23 04:24] VITALS: BP 129/69
[2020-08-23 04:48] LABS: HEMATOCRIT 31.2 % (37.0-47.0); HEMOGLOBIN 9.5 gm/dL (12.0-15.0); MCH 22.3 pg (26.0-34.0); MCHC 30.5 g/dL (28.0-37.0); MCV 73.1 fL (80.0-100.0); MPV 8.5 fl. (7.2-11.1); RBC 4.26 mil/uL (4.20-5.00); RDW-CV 20.2 % (10.5-14.5); WBC 9.8 thou/uL (4.0-11.0)
[2020-08-23 05:05] LABS: CALCIUM 8.9 mg/dL (8.5-10.1); CREATININE 0.7 mg/dL (0.6-1.3); MAGNESIUM 2.2 mg/dL (1.8-2.4); TOTAL BILIRUBIN 0.5 mg/dL (<0.1-1.0); TOTAL PROTEIN 6.9 g/dL (6.4-8.2)
--- NOTE | 2020-08-23 05:55 | NUR ---
PT LETHARGIC AROUSABLE. AM MEDICATIONS HELD DUE TO LETHARGY. PT HAS HAD EPISOIDS OF LETHRGY FOR THE PAST TWO SHIFTS. POSSIBLE MEDICATIONS.
[2020-08-23 08:00] VITALS: BP 130/53
[2020-08-23 12:53] VITALS: BP 142/51
[2020-08-23 16:42] VITALS: BP 114/35
[2020-08-23 20:00] VITALS: BP 148/52
[2020-08-24] VITALS: BP 163/74
--- NOTE | 2020-08-24 01:43 | NUR ---
PT ALERT ORIENTED. SCHEDULED MELATONIN GIVEN. PT REQUESTED BENADRYL FOR SLEEP. TELEMETRY SHOWS AFIB. TURN Q 2 HRS. DENIES PAIN. O2 AT 2 LITERS NC.
[2020-08-24 04:40] VITALS: BP 172/70
[2020-08-24] MEDS ORDERED: LEVOFLOXACIN500 MG PO (07:51)
[2020-08-24] MEDS ORDERED: PREDNISONE 10 M10 M1 PO (07:51)
[2020-08-24] MEDS ORDERED: IPRAT-ALBUT 0.5-3 ML INH (07:51)
[2020-08-24] MEDS ORDERED: PULMICORT0.5 MG/2 M INH (07:51)
[2020-08-24] MEDS ORDERED: BROVANA15 MCG/2 M INH (07:51)
[2020-08-24 08:00] VITALS: BP 165/64
[2020-08-24] MEDS ORDERED: BENADRYL25 MG PO (10:26)
--- NOTE | 2020-08-24 10:35 | NUR ---
Pt discharging back to [facility] today via ambulance. Ambulance to [facility] at 1pm. Faxed dc orders. Chart copied. Updated Pt's in room. Nurse report number is [phone]
[2020-08-24 13:02] VITALS: BP 120/52
--- NOTE | 2020-08-24 13:03 | NUR ---
ASSUMED PT CARE AT 0730, PT AOX4, C/O ANXIETY AND ASKED FOR BENADRYL, DR SCHILLING NOTIFIED AND ORDERS RECEIVED FOR BENADRYL Q4H AND GIVEN TO PT W/ SOME RELIEF. DC ORDERS RECEIVED AND DC INSTRUCTIONS, CARE NOTES, SCRIPTS AND F/U APPTS SENT W/ PT ALONG W/ WOUND CARE INSTRUCTIONS FOR RT HAND WOUND. IV AND PEDIATRIC ALLERGIST REMOVED. PT DC'D BY STRETCHER W/ EMS AND ALL PAPERWORK AND PERSONAL BELONGINGS AT APPROX 1303.
--- NOTE | 2020-08-25 12:24 | NUR ---
PT. DISCHARGED 08/24 TO LTC PRIOR TO O.T. EVAL. PLEASE ORDER FURTHER O.T. SERVICES IF NEEDED.
== END 2020-08-24 13:03 | DRG 177 ==
LOC: M.ERS 01:35 → M.2W 03:31 → M.TBA-ER 03:31 → M.2W 04:53
PROVIDERS: Internal Medicine; Personal Emergency Response Attendant; ADMIT Internal Medicine; ATTEND Internal Medicine
PROC: 5A0935A Assistance with Respiratory Ventilation, Less than 24 Consecutive Hours, High Flow/Velocity Cannula (ICD-10-PCS; principal; 2020-08-22)
DX: J15.6 Pneumonia due to other Gram-negative bacteria (principal); J96.21 Acute and chronic respiratory failure with hypoxia; I50.33 Acute on chronic diastolic (congestive) heart failure; I48.20 Chronic atrial fibrillation, unspecified; J44.1 Chronic obstructive pulmonary disease with (acute) exacerbation; J44.0 Chronic obstructive pulmonary disease with (acute) lower respiratory infection; I11.0 Hypertensive heart disease with heart failure; E78.5 Hyperlipidemia, unspecified; I25.10 Atherosclerotic heart disease of native coronary artery without angina pectoris; K21.9 Gastro-esophageal reflux disease without esophagitis; E11.9 Type 2 diabetes mellitus without complications; D63.8 Anemia in other chronic diseases classified elsewhere; Z20.822 Contact with and (suspected) exposure to COVID-19; Z95.5 Presence of coronary angioplasty implant and graft; Z86.718 Personal history of other venous thrombosis and embolism; Z86.711 Personal history of pulmonary embolism; Z79.899 Other long term (current) drug therapy; Z88.5 Allergy status to narcotic agent; Z88.8 Allergy status to other drugs, medicaments and biological substances

== ENCOUNTER 2021-02-24 08:23 | Inpatient (IN) | payer MEDICARE, BC, MEDICAID ==
[~2021-02-24] VITALS: Ht 167.6 cm; Wt 77.9 kg
[2021-02-24] VITALS (14 sets, daily range): BP systolic 81–184; BP diastolic 26–101
--- NOTE | ~2021-02-24 | CON ---
[address] [address] CONSULTATION Name: JAYLENE TOVAR Room: [address] IN M.R.#: [id number] Admission: 02/24/21 Attend Phys: Michelle Elkins Discharge: Date of : 43 Report #: [id number] THIS REPORT FOR: cc: Dolly Zepeda MD, Tuongvan T. MD Namin, Farid M. MD ~ DATE OF CONSULTATION: 02/26/2021 REASON FOR CONSULTATION: Chronic anemia and history of ulcerative colitis. 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 She has been on Remicade for the same. The patient was admitted to [facility] on 02/24/2021. She resides in group home and has had shortness of breath, which prompted her admission. The patient has history of AFib and COPD and is usually on 2 liters of O2 for her baseline. Currently, the patient is confused and unable to communicate. She keeps asking for help. PAST MEDICAL HISTORY: Significant for history of COPD, AFib, ulcerative colitis, coronary artery disease with history of cardiac catheterization and stenting, history of PE and DVT, GERD, chronic anemia, hypertension, diabetes mellitus, which is poorly controlled. ALLERGIES: SIGNIFICANT TO VERSED AND CODEINE. MEDICATIONS: Please refer to MAR. SOCIAL HISTORY: The patient lives in a group home. She has history of tobacco or alcohol use in the past. She has COPD and requires 2 liters of O2 for her baseline. FAMILY HISTORY: Noncontributory. PHYSICAL EXAMINATION: VITAL SIGNS: Reveals normal vitals with irregular heart rate. GENERAL: The patient is confused. LUNGS: Decreased breath sounds in the base of the left lung. CARDIAC: Irregularly irregular rhythm with rates around 80. ABDOMEN: Soft, nontender. Bowel sounds are positive. NEUROLOGIC: The patient is confused and unable to communicate. LABORATORY DATA: Reveal sodium of 143, potassium 3.4, BUN is 14, [place] [address] CONSULTATION Name: JAYLENE TOVAR Room: [address] IN [facility]#: [id number] Admission: 02/24/21 Attend Phys: Michelle Elkins Discharge: Date of : 43 Report #: [id number] 0.7, glucose is 104, AST is 16, ALT is 17 with alkaline phosphatase of 66 and total bilirubin is 0.5. Lipase is 50. Lactic acid is 1.3. IMAGING: CT of head was obtained with no definite acute intracranial process. ASSESSMENT AND PLAN: 1. The patient with history of ulcerative colitis and chronic anemia with her hemoglobin has been stable. She currently confused and cannot give me any records, but reviewing records from a year ago indicates that the patient was following up with [facility] in reference to her ulcerative colitis and was on Remicade. We will request to obtain records. There is no evidence of active GI bleed as BUN and creatinine ratio are within normal limits and her hemoglobin is stable. 2. The patient is confused and delirious. CT of the head is negative, so her delirium needs to be addressed as we tried to find its underlying process. 3. Atrial fibrillation and the rate is controlled. We will continue to monitor the patient and obtain records and make further recommendation. I spent 40 minutes for reviewing records from previous and examining the patient. By: 1541 [id number] Dean MD /nt
[~2021-02-24 08:23] MED LIST changes: +BENADRYL25 MG PO; +BROVANA15 MCG/2 M INH; +COMBIVENT INH; +FLOVENT HFA 4444 MCG INH; +LEVOFLOXACIN500 MG PO; +RISPERDAL0.5 MG PO
[2021-02-24 09:06] LABS: CALCIUM 9.3 mg/dL (8.5-10.1); CREATININE 0.8 mg/dL (0.6-1.3); POTASSIUM 3.9 mmol/L (3.5-5.1)
[2021-02-24 09:17] LABS: ALBUMIN 3.1 g/dL (3.4-5.0); HEMATOCRIT 34.1 % (37.0-47.0); HEMOGLOBIN 10.1 gm/dL (12.0-15.0); MCH 19.7 pg (26.0-34.0); MCHC 29.5 g/dL (28.0-37.0); MCV 66.9 fL (80.0-100.0); MPV 8.9 fl. (7.2-11.1); NUCLEATED RBCS 0 /100WBC; PLATELET COUNT* 311 thou/uL (150-400); RBC 5.09 mil/uL (4.20-5.00); RDW-CV 22.6 % (10.5-14.5); TOTAL BILIRUBIN 0.5 mg/dL (<0.1-1.0); TOTAL PROTEIN 7.1 g/dL (6.4-8.2); WBC 14.2 thou/uL (4.0-11.0)
[2021-02-24 10:10] LABS: URINE BILIRUBIN NEGATIVE (Negative); URINE BLOOD NEGATIVE (Negative); URINE CLARITY CLEAR; URINE COLOR YELLOW; URINE GLUCOSE-RANDOM NEGATIVE (Negative); URINE KETONES NEGATIVE (Negative); URINE LEUKOCYTES TRACE (Negative); URINE NITRITE POSITIVE (Negative); URINE PROTEIN TRACE (Negative); URINE SPECIFIC GRAVITY 1.025 (1.005-1.030); URINE UROBILINOGEN 0.2 E.U./dl (0.2-1.0)
[2021-02-24 10:14] LABS: ABSOLUTE LYMPHOCYTES 0.3 thou/uL (0.8-5.3); ABSOLUTE MONOCYTES 0.6 thou/uL (0.0-1.2); ABSOLUTE NEUTROPHILS 13.3 thou/uL (1.6-8.1); PLATELET ESTIMATE ADEQUATE
[2021-02-24 10:15] LABS: ANISOCYTOSIS 2+; HYPOCHROMASIA 2+; MICROCYTES 2+; POIKILOCYTOSIS 1+
[2021-02-24 10:19] LABS: BACTERIA >30 Many /HPF (None Seen); CRYSTALS None Seen /LPF (None Seen); FINE GRANULAR CASTS 0-3 Few /LPF (None Seen); HYALINE CASTS 0-3 Few /LPF (None Seen); MUCUS 0-3 Light strn/LPF (None Seen); SQUAMOUS 0-3 Few /LPF (0-3); URINE RBC 0-2 Rare /HPF (0-2); URINE WBC 6-15 Few /HPF (0-5)
[2021-02-24] MEDS ORDERED: CLARITIN10 MG PO (11:50)
[2021-02-25] VITALS (40 sets, daily range): BP systolic 83–163; BP diastolic 36–100
[2021-02-25 05:07] LABS: HEMATOCRIT 32.9 % (37.0-47.0); HEMOGLOBIN 10.1 gm/dL (12.0-15.0); MCH 20.7 pg (26.0-34.0); MCHC 30.7 g/dL (28.0-37.0); MCV 67.5 fL (80.0-100.0); MPV 8.3 fl. (7.2-11.1); RBC 4.87 mil/uL (4.20-5.00); RDW-CV 22.9 % (10.5-14.5); WBC 7.1 thou/uL (4.0-11.0)
[2021-02-25 05:25] LABS: CREATININE 0.7 mg/dL (0.6-1.3); POTASSIUM 3.4 mmol/L (3.5-5.1)
--- NOTE | 2021-02-25 14:20 | EKG ---
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: JUSTINO : 1945 Requested By: Boby Edouard Order Number: [id number] MD: Reginald Montemayor Measurements Intervals Preston Rate: 76 P: WV: QRS: -31 QRSD: 82 T: 102 QT: 366 QTc: 412 Interpretive Statements Atrial fibrillation Left axis deviation Borderline low voltage, extremity leads Abnormal R-wave progression, late transition Nonspecific repol abnormality, lateral leads Compared to ECG 08/21/2020 01:42:26 Q waves no longer present Right-axis deviation no longer present Electronically Signed On 02-25-2021 14:19:52 CDT by Reginald Montemayor [email or web address] <ELECTRONICALLY SIGNED> By: Reginald Montemayor MD, FACC 02/25/21 1419 6 6 Reginald Montemayor MD, FAC /EPI
[2021-02-26] VITALS (21 sets, daily range): BP systolic 108–201; BP diastolic 41–128
[2021-02-26 05:13] LABS: HEMATOCRIT 34.6 % (37.0-47.0); HEMOGLOBIN 10.1 gm/dL (12.0-15.0); MCH 19.7 pg (26.0-34.0); MCHC 29.3 g/dL (28.0-37.0); MCV 67.3 fL (80.0-100.0); MPV 8.7 fl. (7.2-11.1); RBC 5.14 mil/uL (4.20-5.00); RDW-CV 22.6 % (10.5-14.5); WBC 9.4 thou/uL (4.0-11.0)
[2021-02-26 05:31] LABS: CALCIUM 9.1 mg/dL (8.5-10.1); CREATININE 0.7 mg/dL (0.6-1.3); POTASSIUM 3.4 mmol/L (3.5-5.1)
--- NOTE | 2021-02-26 13:20 | 2DMMODE ---
[place] [address] 2 D/M-MODE ECHOCARDIOGRAM Name: JAYLENE TOVAR Room: [address] ADM IN M.R.#: [id number] Admission: 02/24/21 Attend Phys: Yaniv Armando Discharge: Date of : 43 Date of Service: 02/26/21 1320 Report #: [id number] THIS REPORT FOR: cc: Dolly Zepeda MD, Tuongvan T. MD Blick, David R. MD [facility] ~ APPROVED REPORT Study performed: 02/26/2021 09:19:31 EXAM: Limited 2D Echocardiogram and M mode Patient Location: Bedside BSA: 1.92 HR: 66 bpm BP: 108/54 mmHg Other Information Study Quality: Good Technically limited study due to uncooperative patient, inability to position patient. Indications Sepsis Dyspnea 2D Dimensions IVSd: 11.48 (7-11mm) LVOT Diam: 18.87 (18-24mm) LVDd: 36.12 mm PWd: 12.15 (7-11mm) Ascending Ao: 26.80 (22-36mm) LVDs: 26.05 (25-40mm) Aortic Root: 27.81 mm Left Ventricle The left ventricle is normal size. Regional wall motion is normal. Mild concentric left ventricular hypertrophy. Left ventricular systolic function is normal. The left ventricular ejection fraction is within the normal range. LVEF is 60-65%. Right Ventricle The right ventricle is normal size. The right ventricular systolic function is normal. Atria The left atrium size is normal. The right atrium size is [facility] [address] [place] [address] 2 D/M-MODE ECHOCARDIOGRAM Name: JAYLENE TOVAR Room: [address] IN [facility]#: [id number] Admission: 02/24/21 Attend Phys: Yaniv Armando Discharge: Date of : 43 Date of Service: 02/26/21 1320 Report #: [id number] normal. Aortic Valve The Aortic valve is sclerotic. Mitral Valve The mitral valve is normal in structure. Mild mitral annular calcification. Tricuspid Valve The tricuspid valve is normal in structure. Pulmonic Valve Pulmonic valve is not well visualized. Great Vessels The aortic root is normal in size. Pericardium There is no pericardial effusion. <Conclusion> LVEF is 60-65%. The Aortic valve is sclerotic. Mild concentric left ventricular hypertrophy. <ELECTRONICALLY SIGNED> By: Reginald Montemayor MD, [facility] 02/26/21 132 19 1320 Reginald Montemayor MD, FACC /INF
[2021-02-26 17:53] LABS: CALCIUM 9.5 mg/dL (8.5-10.1); CREATININE 0.7 mg/dL (0.6-1.3); POTASSIUM 3.7 mmol/L (3.5-5.1)
[2021-02-27] VITALS (18 sets, daily range): BP systolic 83–190; BP diastolic 39–127
[2021-02-27 05:50] LABS: HEMATOCRIT 35.9 % (37.0-47.0); HEMOGLOBIN 10.6 gm/dL (12.0-15.0); MCH 19.8 pg (26.0-34.0); MCHC 29.6 g/dL (28.0-37.0); MPV 8.4 fl. (7.2-11.1); RBC 5.36 mil/uL (4.20-5.00); RDW-CV 22.6 % (10.5-14.5); WBC 5.6 thou/uL (4.0-11.0)
[2021-02-27 06:00] LABS: ALBUMIN 3.4 g/dL (3.4-5.0); CALCIUM 10.1 mg/dL (8.5-10.1); CREATININE 0.7 mg/dL (0.6-1.3); MAGNESIUM 1.9 mg/dL (1.8-2.4); POTASSIUM 3.6 mmol/L (3.5-5.1); TOTAL BILIRUBIN 0.6 mg/dL (<0.1-1.0)
[2021-02-28 03:18] VITALS: BP 110/76
[2021-02-28 06:14] LABS: HEMATOCRIT 32.6 % (37.0-47.0); HEMOGLOBIN 9.8 gm/dL (12.0-15.0); MCH 19.9 pg (26.0-34.0); MCHC 30.1 g/dL (28.0-37.0); MCV 66.1 fL (80.0-100.0); MPV 8.5 fl. (7.2-11.1); RBC 4.93 mil/uL (4.20-5.00); RDW-CV 22.6 % (10.5-14.5); WBC 9.4 thou/uL (4.0-11.0)
[2021-02-28 06:27] LABS: ALBUMIN 2.9 g/dL (3.4-5.0); CALCIUM 9.6 mg/dL (8.5-10.1); CREATININE 0.7 mg/dL (0.6-1.3); POTASSIUM 3.7 mmol/L (3.5-5.1); TOTAL BILIRUBIN 0.3 mg/dL (<0.1-1.0)
[2021-02-28 08:00] VITALS: BP 164/100
[2021-02-28 12:00] VITALS: BP 153/73
[2021-02-28 16:00] VITALS: BP 166/66
[2021-02-28 20:00] VITALS: BP 110/42
[2021-02-28 23:51] VITALS: BP 138/57
[2021-03-01 03:20] VITALS: BP 106/68
[2021-03-01 05:01] LABS: HEMATOCRIT 33.9 % (37.0-47.0); HEMOGLOBIN 10.1 gm/dL (12.0-15.0); MCH 19.9 pg (26.0-34.0); MCHC 29.7 g/dL (28.0-37.0); MPV 8.6 fl. (7.2-11.1); RBC 5.06 mil/uL (4.20-5.00); RDW-CV 23.1 % (10.5-14.5)
[2021-03-01 05:18] LABS: ALBUMIN 2.9 g/dL (3.4-5.0); CALCIUM 9.7 mg/dL (8.5-10.1); CREATININE 0.7 mg/dL (0.6-1.3); POTASSIUM 3.8 mmol/L (3.5-5.1); TOTAL BILIRUBIN 0.3 mg/dL (<0.1-1.0); TOTAL PROTEIN 6.8 g/dL (6.4-8.2)
[2021-03-01 08:00] VITALS: BP 162/68
[2021-03-01 12:00] VITALS: BP 142/64
[2021-03-01 16:00] VITALS: BP 142/70
[2021-03-01 20:00] VITALS: BP 152/86
[2021-03-02] VITALS (8 sets, daily range): BP systolic 109–194; BP diastolic 55–94
[2021-03-02 05:49] LABS: ALBUMIN 2.8 g/dL (3.4-5.0); CALCIUM 9.5 mg/dL (8.5-10.1); CREATININE 0.6 mg/dL (0.6-1.3); POTASSIUM 3.8 mmol/L (3.5-5.1); TOTAL BILIRUBIN 0.4 mg/dL (<0.1-1.0); TOTAL PROTEIN 6.6 g/dL (6.4-8.2)
[2021-03-02 05:57] LABS: HEMATOCRIT 34.8 % (37.0-47.0); HEMOGLOBIN 10.5 gm/dL (12.0-15.0); MCH 20.1 pg (26.0-34.0); MCHC 30.1 g/dL (28.0-37.0); MCV 66.6 fL (80.0-100.0); MPV 8.7 fl. (7.2-11.1); NUCLEATED RBCS 0 /100WBC; PLATELET COUNT* 244 thou/uL (150-400); RBC 5.23 mil/uL (4.20-5.00); RDW-CV 23.1 % (10.5-14.5); WBC 11.9 thou/uL (4.0-11.0)
[2021-03-02 06:12] LABS: % SATURATION 6 % (20-39); IRON 20 ug/dL (50-175)
[2021-03-02 07:17] LABS: ESR (SEDRATE) 1 mm/hr (0-30)
[2021-03-02 07:34] LABS: ABSOLUTE LYMPHOCYTES 0.4 thou/uL (0.8-5.3); ABSOLUTE MONOCYTES 0.1 thou/uL (0.0-1.2); ABSOLUTE NEUTROPHILS 11.4 thou/uL (1.6-8.1); ANISOCYTOSIS 1+; PLATELET ESTIMATE ADEQUATE; POIKILOCYTOSIS 1+
[2021-03-03] VITALS: BP 115/92
[2021-03-03 04:00] VITALS: BP 134/75
[2021-03-03 08:00] VITALS: BP 152/77
[2021-03-03 10:07] LABS: HEPATITIS B SURFACE AG Negative (Negative)
[2021-03-03 11:26] VITALS: BP 103/57
[2021-03-03 15:46] VITALS: BP 92/44
[2021-03-03 20:04] VITALS: BP 126/47
[2021-03-04 00:54] VITALS: BP 137/91
[2021-03-04 04:00] VITALS: BP 189/76
[2021-03-04 08:01] VITALS: BP 169/66
[2021-03-04 10:38] LABS: ABSOLUTE BASOPHILS 0.1 thou/uL (0.0-0.2); ABSOLUTE EOSINOPHILS 0.1 thou/uL (0.0-0.7); ABSOLUTE LYMPHOCYTES 1.8 thou/uL (0.8-5.3); ABSOLUTE MONOCYTES 0.7 thou/uL (0.0-1.2); ABSOLUTE NEUTROPHILS 13.7 thou/uL (1.6-8.1); BASOPHILS 0.4 %; EOSINOPHILS 0.3 %; HEMATOCRIT 36.7 % (37.0-47.0); HEMOGLOBIN 10.9 gm/dL (12.0-15.0); LYMPHOCYTES 10.8 %; MCH 19.8 pg (26.0-34.0); MCHC 29.6 g/dL (28.0-37.0); MCV 66.9 fL (80.0-100.0); MONOCYTES 4.1 %; MPV 8.8 fl. (7.2-11.1); NUCLEATED RBCS 0 /100WBC; PLATELET COUNT* 268 thou/uL (150-400); POLYS 84.4 %; RBC 5.49 mil/uL (4.20-5.00); RDW-CV 23.3 % (10.5-14.5); WBC 16.2 thou/uL (4.0-11.0)
[2021-03-04 10:43] LABS: ALBUMIN 2.6 g/dL (3.4-5.0); CALCIUM 8.7 mg/dL (8.5-10.1); CREATININE 0.9 mg/dL (0.6-1.3); MAGNESIUM 1.7 mg/dL (1.8-2.4); TOTAL BILIRUBIN 0.4 mg/dL (<0.1-1.0); TOTAL PROTEIN 6.2 g/dL (6.4-8.2)
[2021-03-04 11:28] VITALS: BP 111/41
[2021-03-04 15:56] VITALS: BP 156/64
[2021-03-04 19:45] VITALS: BP 135/70
[2021-03-05] VITALS: BP 181/97
[2021-03-05 04:00] VITALS: BP 155/95
[2021-03-05 06:46] LABS: ABSOLUTE BASOPHILS 0.1 thou/uL (0.0-0.2); ABSOLUTE LYMPHOCYTES 1.3 thou/uL (0.8-5.3); ABSOLUTE MONOCYTES 0.6 thou/uL (0.0-1.2); ABSOLUTE NEUTROPHILS 10.7 thou/uL (1.6-8.1); BASOPHILS 0.4 %; EOSINOPHILS 0.3 %; HEMATOCRIT 34.4 % (37.0-47.0); HEMOGLOBIN 10.3 gm/dL (12.0-15.0); LYMPHOCYTES 10.2 %; MCH 19.7 pg (26.0-34.0); MCHC 29.8 g/dL (28.0-37.0); NUCLEATED RBCS 0 /100WBC; PLATELET COUNT* 252 thou/uL (150-400); POLYS 84.1 %; RBC 5.22 mil/uL (4.20-5.00); RDW-CV 22.6 % (10.5-14.5); WBC 12.7 thou/uL (4.0-11.0)
[2021-03-05 07:03] LABS: ALBUMIN 2.4 g/dL (3.4-5.0); CALCIUM 8.5 mg/dL (8.5-10.1); CREATININE 0.6 mg/dL (0.6-1.3); POTASSIUM 4.1 mmol/L (3.5-5.1); TOTAL BILIRUBIN 0.5 mg/dL (<0.1-1.0); TOTAL PROTEIN 5.8 g/dL (6.4-8.2)
[2021-03-05 08:00] VITALS: BP 113/69
[2021-03-05 12:07] VITALS: BP 112/66
[2021-03-05 16:03] VITALS: BP 108/60
[2021-03-05 20:00] VITALS: BP 130/62
[2021-03-06 00:41] VITALS: BP 141/77
[2021-03-06 05:29] VITALS: BP 144/62
[2021-03-06 06:37] LABS: ALBUMIN 2.4 g/dL (3.4-5.0); CALCIUM 8.8 mg/dL (8.5-10.1); CREATININE 0.6 mg/dL (0.6-1.3); POTASSIUM 3.6 mmol/L (3.5-5.1); TOTAL BILIRUBIN 0.4 mg/dL (<0.1-1.0); TOTAL PROTEIN 5.7 g/dL (6.4-8.2)
[2021-03-06 06:42] LABS: PREALBUMIN 20.6 mg/dL (18.0-35.7)
[2021-03-06 06:56] LABS: ABSOLUTE LYMPHOCYTES 1.6 thou/uL (0.8-5.3); ABSOLUTE NEUTROPHILS 8.3 thou/uL (1.6-8.1); HEMATOCRIT 34.3 % (37.0-47.0); LYMPHOCYTES 14.8 %; NUCLEATED RBCS 0 /100WBC
[2021-03-06 06:58] LABS: ABSOLUTE EOSINOPHILS 0.1 thou/uL (0.0-0.7); ABSOLUTE MONOCYTES 0.5 thou/uL (0.0-1.2); BASOPHILS 0.4 %; EOSINOPHILS 0.9 %; HEMOGLOBIN 10.4 gm/dL (12.0-15.0); MCH 20.1 pg (26.0-34.0); MCHC 30.4 g/dL (28.0-37.0); MCV 66.1 fL (80.0-100.0); MONOCYTES 5.2 %; MPV 8.8 fl. (7.2-11.1); PLATELET COUNT* 252 thou/uL (150-400); POLYS 78.7 %; RBC 5.19 mil/uL (4.20-5.00); RDW-CV 23.5 % (10.5-14.5); WBC 10.5 thou/uL (4.0-11.0)
[2021-03-06 07:51] LABS: HYPOCHROMASIA 2+
[2021-03-06 07:52] LABS: ANISOCYTOSIS 2+; MICROCYTES 2+; POIKILOCYTOSIS 1+; POLYCHROMASIA 1+
[2021-03-06 07:53] LABS: OVALOCYTES 1+; SCHISTOCYTES 1+; TARGET CELLS 2+
[2021-03-06 10:00] VITALS: BP 105/50
[2021-03-06 16:00] VITALS: BP 105/53
[2021-03-06 20:00] VITALS: BP 112/50
[2021-03-07 01:29] VITALS: BP 135/52
[2021-03-07 05:12] VITALS: BP 142/76
[2021-03-07 08:00] VITALS: BP 111/52
[2021-03-07 12:00] VITALS: BP 99/48
[2021-03-07 16:00] VITALS: BP 131/57
[2021-03-07 20:20] VITALS: BP 141/59
[2021-03-08] VITALS: BP 145/65
[2021-03-08 04:00] VITALS: BP 116/65
[2021-03-08] MEDS ORDERED: APRISO0.375 GM PO (07:38)
[2021-03-08] MEDS ORDERED: PREDNISONE 10 M10 M1 PO (07:38)
[2021-03-08 08:30] VITALS: BP 133/60
[2021-03-08 11:37] VITALS: BP 100/41
== END 2021-03-08 13:26 | DRG 871 ==
LOC: M.ERS 08:23 → M.ICU 09:47 → M.TBA-ER 09:47 → M.ICU 12:55 → M.2W 02-27 17:22
PROVIDERS: Emergency Medicine; Emergency Medicine Emergency Medical Services; Family Medicine; Internal Medicine; Internal Medicine Gastroenterology; ADMIT Internal Medicine; ATTEND Internal Medicine
PROC: 5A0935A Assistance with Respiratory Ventilation, Less than 24 Consecutive Hours, High Flow/Velocity Cannula (ICD-10-PCS; principal; 2021-02-24)
PROC: 02H633Z Insertion of Infusion Device into Right Atrium, Percutaneous Approach (ICD-10-PCS; principal; 2021-02-24)
PROC: 0DBM8ZX Excision of Descending Colon, Via Natural or Artificial Opening Endoscopic, Diagnostic (ICD-10-PCS; 2021-03-06)
PROC: 0DBH8ZX Excision of Cecum, Via Natural or Artificial Opening Endoscopic, Diagnostic (ICD-10-PCS; 2021-03-06)
PROC: 0DBP8ZX Excision of Rectum, Via Natural or Artificial Opening Endoscopic, Diagnostic (ICD-10-PCS; 2021-03-06)
PROC: 0DBN8ZX Excision of Sigmoid Colon, Via Natural or Artificial Opening Endoscopic, Diagnostic (ICD-10-PCS; 2021-03-06)
PROC: 0DJ08ZZ Inspection of Upper Intestinal Tract, Via Natural or Artificial Opening Endoscopic (ICD-10-PCS; 2021-03-06)
PROC: 0DBL8ZX Excision of Transverse Colon, Via Natural or Artificial Opening Endoscopic, Diagnostic (ICD-10-PCS; 2021-03-06)
PROC: 0DBK8ZX Excision of Ascending Colon, Via Natural or Artificial Opening Endoscopic, Diagnostic (ICD-10-PCS; 2021-03-06)
DX: A41.9 Sepsis, unspecified organism (principal); J15.6 Pneumonia due to other Gram-negative bacteria; J96.21 Acute and chronic respiratory failure with hypoxia; I50.33 Acute on chronic diastolic (congestive) heart failure; R65.21 Severe sepsis with septic shock; I48.20 Chronic atrial fibrillation, unspecified; N30.01 Acute cystitis with hematuria; K51.90 Ulcerative colitis, unspecified, without complications; G93.49 Other encephalopathy; E78.5 Hyperlipidemia, unspecified; I11.0 Hypertensive heart disease with heart failure; E11.9 Type 2 diabetes mellitus without complications; K21.9 Gastro-esophageal reflux disease without esophagitis; I25.10 Atherosclerotic heart disease of native coronary artery without angina pectoris; I35.0 Nonrheumatic aortic (valve) stenosis; Z96.641 Presence of right artificial hip joint; K44.9 Diaphragmatic hernia without obstruction or gangrene; K25.9 Gastric ulcer, unspecified as acute or chronic, without hemorrhage or perforation; I95.9 Hypotension, unspecified; K31.89 Other diseases of stomach and duodenum; D12.3 Benign neoplasm of transverse colon; J43.9 Emphysema, unspecified; Z20.822 Contact with and (suspected) exposure to COVID-19; Z95.5 Presence of coronary angioplasty implant and graft; Z86.718 Personal history of other venous thrombosis and embolism; Z86.711 Personal history of pulmonary embolism; Z79.899 Other long term (current) drug therapy; Z88.5 Allergy status to narcotic agent; Z88.8 Allergy status to other drugs, medicaments and biological substances; Z87.891 Personal history of nicotine dependence; Z86.73 Personal history of transient ischemic attack (TIA), and cerebral infarction without residual deficits

== ENCOUNTER 2021-05-05 21:04 | Inpatient (IN) | payer MEDICARE, BC, MEDICAID ==
[~2021-05-05] VITALS: Ht 160 cm; Wt 84.0 kg
[~2021-05-05 21:04] MED LIST changes: +CLARITIN10 MG PO
[2021-05-05 21:07] VITALS: BP 151/129
[2021-05-05] MEDS ORDERED: FUROSEMIDE 40 M40 MG PO (21:07)
[2021-05-05] MEDS ORDERED: IRON18 M1 PO (21:07)
[2021-05-05] MEDS ORDERED: NORVASC 2.5 MG2.5 M1 PO (21:08)
[2021-05-05] MEDS ORDERED: TOPROL XL25 MG PO (21:08)
[2021-05-05] MEDS ORDERED: DESYREL150 MG PO (21:09)
[2021-05-05 21:48] LABS: ABSOLUTE LYMPHOCYTES 1.1 thou/uL (0.8-5.3); NUCLEATED RBCS 0 /100WBC
[2021-05-05 21:50] LABS: ABSOLUTE MONOCYTES 0.7 thou/uL (0.0-1.2); ABSOLUTE NEUTROPHILS 10.8 thou/uL (1.6-8.1); BASOPHILS 0.3 %; EOSINOPHILS 0.3 %; HEMATOCRIT 46.3 % (37.0-47.0); HEMOGLOBIN 13.6 gm/dL (12.0-15.0); LYMPHOCYTES 8.7 %; MCH 24.3 pg (26.0-34.0); MCHC 29.3 g/dL (28.0-37.0); MONOCYTES 5.8 %; MPV 9.1 fl. (7.2-11.1); PLATELET COUNT* 253 thou/uL (150-400); POLYS 84.9 %; RBC 5.58 mil/uL (4.20-5.00); RDW-CV 26.9 % (10.5-14.5); WBC 12.7 thou/uL (4.0-11.0)
[2021-05-05 21:56] LABS: CALCIUM 9.2 mg/dL (8.5-10.1); CREATININE 0.9 mg/dL (0.6-1.3); POTASSIUM 4.4 mmol/L (3.5-5.1)
[2021-05-05 22:08] LABS: ALBUMIN 3.3 g/dL (3.4-5.0); MAGNESIUM 1.8 mg/dL (1.8-2.4); TOTAL BILIRUBIN 0.5 mg/dL (<0.1-1.0); TOTAL PROTEIN 7.4 g/dL (6.4-8.2)
[2021-05-05 22:20] LABS: BE -1.7 mmol/L (-2 to +3); PCO2 36.6 mmHg (35.0-45.0); pH 7.407 (7.340-7.450)
[2021-05-05 22:23] LABS: PO2 170.8 mmHg (75.0-100.0)
[2021-05-05 22:48] LABS: URINE BILIRUBIN NEGATIVE (Negative); URINE BLOOD NEGATIVE (Negative); URINE CLARITY CLEAR; URINE COLOR YELLOW; URINE GLUCOSE-RANDOM NEGATIVE (Negative); URINE KETONES NEGATIVE (Negative); URINE LEUKOCYTES-REFLEX NEGATIVE (Negative); URINE NITRITE-REFLEX NEGATIVE (Negative); URINE PROTEIN NEGATIVE (Negative); URINE UROBILINOGEN 0.2 E.U./dl (0.2-1.0)
[2021-05-05 23:28] LABS: PLATELET ESTIMATE ADEQUATE
[2021-05-05 23:31] LABS: ANISOCYTOSIS Occasional; HYPOCHROMASIA Occasional; MICROCYTES Occasional
[2021-05-06 08:16] VITALS: BP 140/83
--- NOTE | 2021-05-06 11:02 | 2DMMODE ---
[place] [address] 2 D/M-MODE ECHOCARDIOGRAM Name: JAYLENE TOVAR Abdi Room: [place] [address] ADM IN .Aubree.#: [id number] Admission: 05/06/21 Attend Phys: Yaniv Armando Discharge: Date of : 43 Date of Service: 05/06/21 1102 Report #: [id number] THIS REPORT FOR: cc: Dolly Zepeda MD, Tuongvan T. MD Holkins, John M. MD [facility] ~ APPROVED REPORT Study performed: 05/06/2021 09:12:07 EXAM: Comprehensive 2D, Doppler, and color-flow Echocardiogram Patient Location: In-Patient Room #: er Status: routine BSA: 1.87 HR: 85 bpm BP: 140/83 mmHg Rhythm: Atrial Fibrillation Other Information Study Quality: Good Indications Pulmonary Embolism Atrial Fibrillation 2D Dimensions IVSd: 12.82 (7-11mm) LVOT Diam: 18.22 (18-24mm) LVDd: 37.15 mm PWd: 12.56 (7-11mm) Ascending Ao: 32.64 (22-36mm) LVDs: 24.24 (25-40mm) Volumes Left Atrial Volume (Systole) LA ESV Index: 71.90 mL/m2 Aortic Valve AoV Peak Pawel.: 1.63 m/s AO Peak Gr.: 10.68 mmHg LVOT Max P.54 mmHg AO Mean Gr.: 5.41 mmHg LVOT Mean P.59 mmHg LVOT Max V: 0.94 m/s AO V2 VTI: 28.58 cm LVOT Mean V: 0.57 m/s ANNEMARIE (VTI): 1.53 cm2 LVOT V1 VTI: 16.72 [place] [address] 2 D/M-MODE ECHOCARDIOGRAM Name: JAYLENE TOVAR Room: [address] IN ..#: [id number] Admission: 05/06/21 Attend Phys: Yaniv Armando Discharge: Date of : 43 Date of Service: 05/06/21 1102 Report #: [id number] TDI Lateral E' Pawel.: 0.11 m/s Pulmonary Valve PV Peak Pawel.: 0.79 m/s PV Peak Gr.: 2.51 mmHg Tricuspid Valve RAP Estimate: 10.00 mmHg TR Peak Gr.: 43.80 mmHg RVSP: 53.00 mmHg PA Pressure: 53.00 mmHg Left Ventricle The left ventricle is normal size. There is normal LV segmental wall motion. Mild concentric left ventricular hypertrophy. Left ventricular systolic function is normal. The left ventricular ejection fraction is within the normal range. LVEF is 55-60%. This study is not technically sufficient to allow evaluation of the LV diastolic function due to atrial fibrillation. Right Ventricle Right ventricle is borderline dilated. The right ventricular systolic function is normal. Atria Left atrium is moderately dilated. Right atrium is mildly dilated. Aortic Valve s/p TAVR Mild aortic regurgitation. There is no aortic valvular stenosis. Mitral Valve There is mitral annular calcification. Mild mitral regurgitation. No evidence of mitral valve stenosis. Tricuspid Valve The tricuspid valve is normal in structure. Mild tricuspid regurgitation. Moderate pulmonary hypertension. Pulmonic Valve The pulmonary valve is normal in structure. There is no pulmonic valvular regurgitation. Great Vessels The aortic root is normal in size. IVC is dilated and collapses >50% [place] [address] 2 D/M-MODE ECHOCARDIOGRAM Name: JAYLENE TOVAR Room: [address] IN M.R.#: [id number] Admission: 05/06/21 Attend Phys: Yaniv Armando Discharge: Date of : 43 Date of Service: 05/06/21 1102 Report #: [id number] Pericardium There is no pericardial effusion. <Conclusion> The left ventricle is normal size. Left ventricular systolic function is normal. The left ventricular ejection fraction is within the normal range. LVEF is 55-60%. This study is not technically sufficient to allow evaluation of the LV diastolic function due to atrial fibrillation. Right ventricle is borderline dilated. The right ventricular systolic function is normal. Left atrium is moderately dilated. Right atrium is mildly dilated. s/p TAVR Mild aortic regurgitation. There is no aortic valvular stenosis. There is mitral annular calcification. Mild mitral regurgitation. The tricuspid valve is normal in structure. Mild tricuspid regurgitation. Moderate pulmonary hypertension. IVC is dilated and collapses >50% with inspiration. There is no pericardial effusion. There is normal LV segmental wall motion. <ELECTRONICALLY SIGNED> By: Salvador Garces MD, FACC 05/06/21 110 01 01 Salvador Garces MD, FACC /INF
--- NOTE | 2021-05-06 11:20 | EKG ---
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1945 Requested By: Aaliyah Metzger Order Number: [id number] MD: Salvador Garces Measurements Intervals Eva Rate: 105 P: VT: QRS: -65 QRSD: 87 T: 44 QT: 309 QTc: 409 Interpretive Statements Atrial fibrillation LAD, consider left anterior fascicular block Nonspecific ST-T abnormalities Compared to ECG 02/24/2021 08:37:[address]-T changes have occurred Early repolarization no longer present Electronically Signed On 05-06-2021 11:20:02 WIRELESS TEAM MEMBER by Salvador Garces [email or web address] <ELECTRONICALLY SIGNED> By: Salvador Garces MD, FACC 05/06/211119 09 09 Salvador Garces MD, [facility] /EPI
[2021-05-06 12:16] VITALS: BP 129/66
[2021-05-06 16:16] VITALS: BP 108/75
[2021-05-06 20:07] VITALS: BP 107/59
[2021-05-07 00:30] VITALS: BP 112/62
[2021-05-07 04:15] VITALS: BP 138/81
[2021-05-07 04:38] LABS: BE -4.3 mmol/L (-2 to +3); PCO2 33.7 mmHg (35.0-45.0); PO2 82.9 mmHg (75.0-100.0); pH 7.387 (7.340-7.450)
[2021-05-07 08:15] VITALS: BP 111/49
[2021-05-07 08:15] LABS: HEMATOCRIT 40.4 % (37.0-47.0); HEMOGLOBIN 12.7 gm/dL (12.0-15.0); MCH 24.7 pg (26.0-34.0); MCHC 31.4 g/dL (28.0-37.0); MCV 78.5 fL (80.0-100.0); MPV 9.3 fl. (7.2-11.1); RBC 5.15 mil/uL (4.20-5.00); RDW-CV 26.7 % (10.5-14.5); WBC 7.7 thou/uL (4.0-11.0)
[2021-05-07 08:29] LABS: ALBUMIN 2.7 g/dL (3.4-5.0); CALCIUM 9.2 mg/dL (8.5-10.1); CREATININE 0.9 mg/dL (0.6-1.3); MAGNESIUM 1.7 mg/dL (1.8-2.4); POTASSIUM 3.6 mmol/L (3.5-5.1); TOTAL BILIRUBIN 0.4 mg/dL (<0.1-1.0); TOTAL PROTEIN 6.4 g/dL (6.4-8.2)
[2021-05-07 09:30] VITALS: BP 126/33
[2021-05-07 11:18] VITALS: BP 126/33
[2021-05-07 16:17] VITALS: BP 93/37
[2021-05-08] VITALS (7 sets, daily range): BP systolic 96–153; BP diastolic 57–82
[2021-05-08 11:47] LABS: HEMATOCRIT 44.4 % (37.0-47.0); HEMOGLOBIN 13.3 gm/dL (12.0-15.0); MCH 24.8 pg (26.0-34.0); MCHC 30.1 g/dL (28.0-37.0); MCV 82.6 fL (80.0-100.0); MPV 9.5 fl. (7.2-11.1); RBC 5.37 mil/uL (4.20-5.00); RDW-CV 27.1 % (10.5-14.5); WBC 11.4 thou/uL (4.0-11.0)
[2021-05-08 12:05] LABS: ALBUMIN 3.1 g/dL (3.4-5.0); CALCIUM 9.6 mg/dL (8.5-10.1); CREATININE 0.9 mg/dL (0.6-1.3); MAGNESIUM 1.9 mg/dL (1.8-2.4); POTASSIUM 3.3 mmol/L (3.5-5.1); TOTAL BILIRUBIN 0.4 mg/dL (<0.1-1.0); TOTAL PROTEIN 7.2 g/dL (6.4-8.2)
[2021-05-09] VITALS: BP 143/71
[2021-05-09 04:00] VITALS: BP 131/72; BP 135/68
[2021-05-09 08:00] VITALS: BP 139/76
[2021-05-09 11:18] LABS: HEMATOCRIT 39.4 % (37.0-47.0); HEMOGLOBIN 12.2 gm/dL (12.0-15.0); MCH 24.9 pg (26.0-34.0); MCHC 30.9 g/dL (28.0-37.0); MCV 80.8 fL (80.0-100.0); MPV 9.7 fl. (7.2-11.1); RBC 4.88 mil/uL (4.20-5.00); RDW-CV 26.8 % (10.5-14.5); WBC 10.3 thou/uL (4.0-11.0)
[2021-05-09 11:29] LABS: CALCIUM 9.4 mg/dL (8.5-10.1); CREATININE 0.9 mg/dL (0.6-1.3); POTASSIUM 4.4 mmol/L (3.5-5.1)
[2021-05-09 13:24] VITALS: BP 97/49
[2021-05-09 15:29] VITALS: BP 106/61
[2021-05-09 20:00] VITALS: BP 146/64
[2021-05-10] VITALS: BP 139/67
[2021-05-10 04:00] VITALS: BP 121/70
[2021-05-10 08:00] VITALS: BP 143/65
[2021-05-10] MEDS ORDERED: DOXYCYCLINE 10100 MG PO (09:23)
[2021-05-10] MEDS ORDERED: PREDNISONE 10 M10 M1 PO (09:23)
[2021-05-10] MEDS ORDERED: XARELTO15 MG PO (09:23)
[2021-05-10] MEDS ORDERED: AUGMENTIN 875-1 EACH PO (09:23)
[2021-05-10 11:50] LABS: CALCIUM 8.9 mg/dL (8.5-10.1); CREATININE 0.9 mg/dL (0.6-1.3); POTASSIUM 4.2 mmol/L (3.5-5.1)
[2021-05-10 13:37] VITALS: BP 92/50
== END 2021-05-10 15:00 | DRG 177 ==
LOC: M.ERS 21:04 → M.ORTHSURG 05-06 04:16 → M.TBA-ER 05-06 04:16 → M.ORTHSURG 05-07 11:36
PROVIDERS: Emergency Medicine; Internal Medicine; Personal Emergency Response Attendant; ADMIT Internal Medicine; ATTEND Internal Medicine
PROC: 5A09357 Assistance with Respiratory Ventilation, Less than 24 Consecutive Hours, Continuous Positive Airway Pressure (ICD-10-PCS; principal; 2021-05-06)
PROC: XW033E5 Introduction of Remdesivir Anti-infective into Peripheral Vein, Percutaneous Approach, New Technology Group 5 (ICD-10-PCS; 2021-05-07)
DX: U07.1 COVID-19 (principal); J96.21 Acute and chronic respiratory failure with hypoxia; I50.33 Acute on chronic diastolic (congestive) heart failure; I26.99 Other pulmonary embolism without acute cor pulmonale; J15.6 Pneumonia due to other Gram-negative bacteria; J12.82 Pneumonia due to coronavirus disease 2019; K51.90 Ulcerative colitis, unspecified, without complications; I48.20 Chronic atrial fibrillation, unspecified; J44.1 Chronic obstructive pulmonary disease with (acute) exacerbation; I31.3 Pericardial effusion (noninflammatory); I69.354 Hemiplegia and hemiparesis following cerebral infarction affecting left non-dominant side; J44.0 Chronic obstructive pulmonary disease with (acute) lower respiratory infection; I11.0 Hypertensive heart disease with heart failure; I25.10 Atherosclerotic heart disease of native coronary artery without angina pectoris; I35.0 Nonrheumatic aortic (valve) stenosis; E78.5 Hyperlipidemia, unspecified; Z88.6 Allergy status to analgesic agent; Z88.8 Allergy status to other drugs, medicaments and biological substances; Z87.891 Personal history of nicotine dependence; Z95.2 Presence of prosthetic heart valve; Z86.718 Personal history of other venous thrombosis and embolism; Z79.899 Other long term (current) drug therapy